=== PATIENT | male | born 1965 | race Caucasian/White ===

== ENCOUNTER → 2017-04-17 | Outpatient (CLI) | payer OTHER ==
[~2017-04-17] MED LIST: ALBUTEROL SULF 2.5 MG/0.5ML(0.5%) NEB SOLN ONE; ALPR1TAB2; BENA40TA PO; HALO10TA18; LAMO100T4 PO; LANS30CA63 PO; OLAN5TAB26; SIMV-13; TRAZADONE; [UNRECOGNIZED DRUG - OTHER]
== END | disposition home or self-care (01) ==
LOC: RT 08:26
PROVIDERS: ATTEND Internal Medicine Pulmonary Disease
DX: J44.9 Chronic obstructive pulmonary disease, unspecified (principal)
CPT/HCPCS: 94060

== ENCOUNTER 2020-12-05 11:02 | Inpatient (IN) | payer MEDICARE, MEDICAID ==
[~2020-12-05] VITALS: Ht 188 cm; Wt 86.9 kg
[~2020-12-05 11:02] MED LIST changes: -ALBUTEROL SULF 2.5 MG/0.5ML(0.5%) NEB SOLN ONE; +LANS30CA57 PO; -LANS30CA63 PO; +OLAN5TAB2; -OLAN5TAB26
[2020-12-05 12:24] LABS: Basophils # (auto) 0 10 ^3/uL (0-0.2); Basophils % (auto) 0.1 % (0.0-2.0); Eosinophils # (auto) 0 10 ^3/uL (0-0.8); Eosinophils % (auto) 0.3 % (0.0-7.0); Hematocrit 38.7 % (41.0-53.0); Hemoglobin 13.6 g/dL (13.5-17.5); Lymphocytes # (auto) 0.9 10 ^3/uL (0.4-5.4); Lymphocytes % (auto) 5.8 % (10.0-50.0); Mean Corpuscular Volume 91.2 fL (80.0-100.0); Monocytes % (auto) 6.6 % (0.0-12.0); Neutrophils # (auto) 13.2 10 ^3/uL (1.6-8.6); Neutrophils % (auto) 87.2 % (37.0-80.0); Nucleated Red Blood Cells % 0.1 %; Red Blood Cells 4.24 10^6/uL (4.5-5.90); White Blood Cell 15.1 10^3/uL (4.4-10.8)
[2020-12-05 12:41] LABS: Albumin 3.1 g/dL (3.4-5.0); Anion Gap 11 (5-15); Blood Urea Nitrogen 9 mg/dL (7-18); Carbon Dioxide 22 mmol/L (21-32); Chloride 86 mmol/L (98-107); Glucose 126 mg/dL (74-106); Magnesium 1.5 mg/dL (1.6-2.6); Potassium 3.9 mmol/L (3.5-5.1)
[2020-12-05 12:46] LABS: Alanine Aminotransferase 50 U/L (16-61); Alkaline Phosphatase 162 U/L (45-117); Aspartate Aminotransferase 81 U/L (15-37); BUN/Creatinine Ratio 11.4; Bilirubin, Total 0.7 mg/dL (0.2-1.0); GFR African American 132 mL/min; GFR Non-African American 109 mL/min; Total Protein 6.7 g/dL (6.4-8.2)
[2020-12-05 12:50] LABS: Sodium 119 mmol/L (136-145)
[2020-12-05] MEDS ORDERED: SODIUM CHLORIDE 0.9% 1,000 ML IV ONE ×2 (13:00→14:45)
[2020-12-05] MEDS ORDERED: cefTRIAXone 1GM/50ML D5W 50 ML IV ONE (13:00)
[2020-12-05] MEDS ORDERED: ACETAMINOPHEN 500 MG TAB PO PRN (14:45)
[2020-12-05] MEDS ORDERED: NITROGLYCERIN 0.4 MG SL TAB SL PRN (14:45)
[2020-12-05] MEDS ORDERED: MORPHINE SULFATE INJECTION 2 MG/ML SYRG IV PRN ×2 (14:45)
[2020-12-05] MEDS ORDERED: MAGNESIUM SULFATE 1GM/100ML 100 ML IV ONE (14:45)
[2020-12-05] MEDS ORDERED: methylPREDNISolone SOD SUCC 125 MG/2 ML VL IV ONE (14:45)
[2020-12-05] MEDS ORDERED: IPRATROPIUM BROM 0.5 MG/2.5ML INH SOL NEB ONE (14:45)
[2020-12-05] MEDS ORDERED: ONDANSETRON HCL 4 MG/2 ML VIAL IV PRN (14:45)
[2020-12-05] MEDS ORDERED: ALBUTEROL SULF 2.5 MG/0.5ML(0.5%) NEB SOLN NEB ONE (14:45)
[2020-12-05 15:21] LABS: Urine Bacteria NONE SEEN /hpf (None Seen); Urine Blood Negative /uL (Negative); Urine Specific Gravity 1.007 (1.001-1.035); Urine WBC 1 /hpf (0 - 3)
[2020-12-05] MEDS: AZITHROMYCIN 500MG/ 250ML 250 ML IV SCH (15:28)
[2020-12-05 15:58] VITALS: BP 124/72
[2020-12-05 17:00] VITALS: BP 113/75
[2020-12-05 18:39] VITALS: BP 113/75
[2020-12-05] MEDS: IPRATROPIUM BROM 0.5 MG/2.5ML INH SOL NEB SCH (20:01)
[2020-12-05] MEDS: BUDESONIDE (INHALATION) 0.5 MG/2 ML NEB NEB SCH (20:01)
[2020-12-05] MEDS: ALBUTEROL SULF 2.5 MG/0.5ML(0.5%) NEB SOLN NEB SCH (20:01)
[2020-12-05 22:00] VITALS: BP 129/76
[2020-12-06 05:00] VITALS: BP 147/94
[2020-12-06 05:57] LABS: Basophils # (auto) 0 10 ^3/uL (0-0.2); Basophils % (auto) 0.1 % (0.0-2.0); Eosinophils # (auto) 0 10 ^3/uL (0-0.8); Hematocrit 41.7 % (41.0-53.0); Hemoglobin 14.3 g/dL (13.5-17.5); Lymphocytes # (auto) 0.5 10 ^3/uL (0.4-5.4); Lymphocytes % (auto) 3.2 % (10.0-50.0); Mean Corpuscular Hemoglobin 31.8 pg (28.0-32.0); Mean Corpuscular Hgb Conc. 34.3 g/dL (32.0-36.0); Mean Corpuscular Volume 92.8 fL (80.0-100.0); Monocytes # (auto) 0.7 10 ^3/uL (0-1.3); Neutrophils # (auto) 13.1 10 ^3/uL (1.6-8.6); Neutrophils % (auto) 91.7 % (37.0-80.0); Red Blood Cells 4.49 10^6/uL (4.5-5.90); White Blood Cell 14.3 10^3/uL (4.4-10.8)
[2020-12-06 06:19] LABS: Calcium 8.3 mg/dL (8.5-10.1); Potassium 3.7 mmol/L (3.5-5.1)
[2020-12-06] MEDS: IPRATROPIUM BROM 0.5 MG/2.5ML INH SOL NEB SCH ×3 (06:28→20:26)
[2020-12-06] MEDS: BUDESONIDE (INHALATION) 0.5 MG/2 ML NEB NEB SCH ×2 (06:28→20:27)
[2020-12-06] MEDS: ALBUTEROL SULF 2.5 MG/0.5ML(0.5%) NEB SOLN NEB SCH ×4 (06:28→20:28)
[2020-12-06] MEDS: HYDROcodone-ACET 5/325MG TAB PO PRN ×3 (06:59→23:52)
[2020-12-06 09:00] VITALS: BP 155/94
[2020-12-06] MEDS: cefTRIAXone 1GM/50ML D5W 50 ML IV SCH (09:10)
[2020-12-06] MEDS ORDERED: FUROSEMIDE 20 MG/2 ML VIAL IV ONE (09:15)
[2020-12-06] MEDS: AZITHROMYCIN 500MG/ 250ML 250 ML IV SCH (10:27)
[2020-12-06] MEDS ORDERED: ALPR1TAB2 PO (10:41)
[2020-12-06] MEDS ORDERED: OLAN20TA PO (10:41)
[2020-12-06] MEDS ORDERED: FLUO60TA7 PO (10:47)
[2020-12-06 13:00] VITALS: BP 139/95
[2020-12-06] MEDS ORDERED: lamoTRIgine 100 MG TAB PO ONE (13:00)
[2020-12-06] MEDS ORDERED: PANTOPRAZOLE 40 MG TAB PO ONE (13:00)
[2020-12-06] MEDS ORDERED: BENAZEPRIL HCL 10 MG TAB PO ONE (13:00)
[2020-12-06] MEDS ORDERED: FLUoxetine HCL 20 MG CAP PO ONE (13:00)
[2020-12-06] MEDS: methylPREDNISolone SOD SUCC 40 MG/ML VL IV SCH ×2 (13:30→21:08)
[2020-12-06] MEDS ORDERED: ALPRAZolam 0.5 MG TAB PO SCH (14:00)
[2020-12-06] MEDS: ALPRAZolam 0.5 MG TAB PO PRN (15:57)
[2020-12-06 17:00] VITALS: BP 145/96
[2020-12-07] MEDS: ALPRAZolam 0.5 MG TAB PO PRN ×3 (03:20→20:38)
[2020-12-07 05:00] VITALS: BP_SYST 101; BP_SYST 152; BP_DIAS 71; BP_DIAS 92
[2020-12-07] MEDS: HYDROcodone-ACET 5/325MG TAB PO PRN ×2 (06:18→18:05)
[2020-12-07] MEDS: IPRATROPIUM BROM 0.5 MG/2.5ML INH SOL NEB SCH ×3 (06:28→18:00)
[2020-12-07] MEDS: ALBUTEROL SULF 2.5 MG/0.5ML(0.5%) NEB SOLN NEB SCH ×3 (06:28→18:00)
[2020-12-07] MEDS: BUDESONIDE (INHALATION) 0.5 MG/2 ML NEB NEB SCH ×2 (06:28→19:27)
[2020-12-07 09:00] VITALS: BP 158/81
[2020-12-07] MEDS: cefTRIAXone 1GM/50ML D5W 50 ML IV SCH (09:04)
[2020-12-07] MEDS: methylPREDNISolone SOD SUCC 40 MG/ML VL IV SCH ×2 (09:53→20:38)
[2020-12-07] MEDS: FLUoxetine HCL 20 MG CAP PO SCH (09:54)
[2020-12-07] MEDS: AZITHROMYCIN 500MG/ 250ML 250 ML IV SCH (09:54)
[2020-12-07] MEDS: BENAZEPRIL HCL 10 MG TAB PO SCH (09:55)
[2020-12-07] MEDS: PANTOPRAZOLE 40 MG TAB PO SCH (09:56)
[2020-12-07] MEDS: lamoTRIgine 100 MG TAB PO SCH (09:56)
[2020-12-07] MEDS ORDERED: OLANZAPINE 30 MG PO SCH (10:00)
[2020-12-07] MEDS: OLANZapine 5 MG TAB PO SCH (11:21)
[2020-12-07 13:00] VITALS: BP 128/80
[2020-12-07 18:00] VITALS: BP 137/96
[2020-12-07 22:00] VITALS: BP 144/93
[2020-12-08] MEDS: HYDROcodone-ACET 5/325MG TAB PO PRN ×3 (00:44→13:08)
[2020-12-08] MEDS: ALPRAZolam 0.5 MG TAB PO PRN ×2 (04:47→13:13)
[2020-12-08 05:28] VITALS: BP 158/92
[2020-12-08 06:17] LABS: Basophils # (auto) 0.1 10 ^3/uL (0-0.2); Basophils % (auto) 0.5 % (0.0-2.0); Eosinophils # (auto) 0 10 ^3/uL (0-0.8); Hematocrit 41.1 % (41.0-53.0); Hemoglobin 14.1 g/dL (13.5-17.5); Lymphocytes # (auto) 0.8 10 ^3/uL (0.4-5.4); Lymphocytes % (auto) 6.7 % (10.0-50.0); Mean Corpuscular Hemoglobin 32.1 pg (28.0-32.0); Mean Corpuscular Hgb Conc. 34.2 g/dL (32.0-36.0); Mean Corpuscular Volume 93.9 fL (80.0-100.0); Monocytes # (auto) 0.5 10 ^3/uL (0-1.3); Monocytes % (auto) 4.4 % (0.0-12.0); Neutrophils # (auto) 10.1 10 ^3/uL (1.6-8.6); Neutrophils % (auto) 88.4 % (37.0-80.0); Nucleated Red Blood Cells % 0.1 %; Red Blood Cells 4.38 10^6/uL (4.5-5.90); Red Cell Distribution Width 14.2 % (11.8-14.3); White Blood Cell 11.5 10^3/uL (4.4-10.8)
[2020-12-08 06:47] LABS: BUN/Creatinine Ratio 16.4; Calcium 8.6 mg/dL (8.5-10.1); Potassium 3.5 mmol/L (3.5-5.1)
[2020-12-08] MEDS: IPRATROPIUM BROM 0.5 MG/2.5ML INH SOL NEB SCH ×2 (07:11→11:20)
[2020-12-08] MEDS: ALBUTEROL SULF 2.5 MG/0.5ML(0.5%) NEB SOLN NEB SCH ×2 (07:11→11:20)
[2020-12-08] MEDS: BUDESONIDE (INHALATION) 0.5 MG/2 ML NEB NEB SCH (07:11)
[2020-12-08 09:01] VITALS: BP 154/97
[2020-12-08] MEDS: OLANZapine 5 MG TAB PO SCH (09:25)
[2020-12-08] MEDS: cefTRIAXone 1GM/50ML D5W 50 ML IV SCH (09:26)
[2020-12-08] MEDS: methylPREDNISolone SOD SUCC 40 MG/ML VL IV SCH (09:27)
[2020-12-08] MEDS: PANTOPRAZOLE 40 MG TAB PO SCH (09:27)
[2020-12-08] MEDS: FLUoxetine HCL 20 MG CAP PO SCH (09:29)
[2020-12-08] MEDS: BENAZEPRIL HCL 10 MG TAB PO SCH (09:29)
[2020-12-08] MEDS: lamoTRIgine 100 MG TAB PO SCH (10:00)
[2020-12-08] MEDS ORDERED: PRED20TA2 PO (10:05)
[2020-12-08] MEDS ORDERED: DOXY-286 PO (10:05)
[2020-12-08 13:00] VITALS: BP 139/98
[2020-12-08] MEDS: AZITHROMYCIN 500MG/ 250ML 250 ML IV SCH (13:07)
[2020-12-08 13:30] VITALS: BP 154/97
[2020-12-08 14:40] VITALS: BP 139/98
[2020-12-08] MEDS ORDERED: DOXY-332 PO (15:34)
== END 2020-12-08 15:35 | disposition home or self-care (01) | DRG 871 ==
LOC: ER 11:02 → TELE 14:33 → TELE-WESTW 17:05
PROVIDERS: ADMIT Nurse Practitioner Acute Care; ATTEND Internal Medicine Pulmonary Disease
DX: A41.02 Sepsis due to Methicillin resistant Staphylococcus aureus (principal); J96.21 Acute and chronic respiratory failure with hypoxia; G93.41 Metabolic encephalopathy; J15.211 Pneumonia due to Methicillin susceptible Staphylococcus aureus; E44.0 Moderate protein-calorie malnutrition; E87.1 Hypo-osmolality and hyponatremia; D72.829 Elevated white blood cell count, unspecified; F17.210 Nicotine dependence, cigarettes, uncomplicated; F20.9 Schizophrenia, unspecified; I11.0 Hypertensive heart disease with heart failure; J43.9 Emphysema, unspecified; F41.9 Anxiety disorder, unspecified; F32.A Depression, unspecified; I50.9 Heart failure, unspecified; Z20.822 Contact with and (suspected) exposure to COVID-19; E87.70 Fluid overload, unspecified; Z68.25 Body mass index [BMI] 25.0-25.9, adult
CPT/HCPCS: 36415; 70450; 71045; 80048; 80053; 81001; 83605; 83735; 83880; 83930; 84300; 84484; 85025; 87040; 87070; 87077; 87186; 87205; 87426; 87804; 93005; 93306; 94640; 96361; 96365; 96368; 96375; G0378; J0696

== ENCOUNTER → 2020-12-17 | Outpatient (CLI) | payer MEDICARE, MEDICAID ==
[~2020-12-17] MED LIST changes: +ALBU108A5 PO; +ALPR1TAB2 PO; +BENA10TA15 PO; +CHOL20007 PO; +DEXL60CA4 PO; +DIPH2.5T16 PO; +DISU1TAB PO; +DOXY-286 PO; +DOXY-332 PO; +FLUO40CA PO; +FLUO60TA7 PO; +FLUT1AER3 PO; -HALO10TA18; +MULT-733 PO; +NALO4SPR2 NAS; +OLAN20TA PO; +PERCOT PO; +PRED20TA2 PO; -SIMV-13; -TRAZADONE
== END | disposition home or self-care (01) ==
LOC: Rad HDHVI 07:54
PROVIDERS: ATTEND Internal Medicine Cardiovascular Disease
DX: I70.203 Unspecified atherosclerosis of native arteries of extremities, bilateral legs (principal)
CPT/HCPCS: 93925

== ENCOUNTER 2020-12-28 07:20 | Inpatient (IN) | payer MEDICARE, MEDICAID ==
[~2020-12-28] VITALS: Ht 188 cm; Wt 91.2 kg
[~2020-12-28 07:20] MED LIST changes: -ALBU108A5 PO; -BENA10TA15 PO; -CHOL20007 PO; -DEXL60CA4 PO; -DIPH2.5T16 PO; -DISU1TAB PO; -FLUO40CA PO; -FLUT1AER3 PO; -MULT-733 PO; -NALO4SPR2 NAS; -PERCOT PO
[2020-12-28] MEDS ORDERED: MORPHINE SULFATE 4 MG/ML SYR/VIAL IV ONE (07:45)
[2020-12-28] MEDS ORDERED: ONDANSETRON HCL 4 MG/2 ML VIAL IV ONE (07:45)
[2020-12-28 08:26] LABS: Basophils # (auto) 0.1 10 ^3/uL (0-0.2); Basophils % (auto) 0.9 % (0.0-2.0); Eosinophils # (auto) 0.1 10 ^3/uL (0-0.8); Eosinophils % (auto) 0.5 % (0.0-7.0); Hematocrit 44.4 % (41.0-53.0); Hemoglobin 15.3 g/dL (13.5-17.5); Lymphocytes # (auto) 0.8 10 ^3/uL (0.4-5.4); Lymphocytes % (auto) 8.6 % (10.0-50.0); Mean Corpuscular Hemoglobin 31.9 pg (28.0-32.0); Mean Corpuscular Hgb Conc. 34.4 g/dL (32.0-36.0); Mean Corpuscular Volume 92.8 fL (80.0-100.0); Monocytes # (auto) 0.7 10 ^3/uL (0-1.3); Monocytes % (auto) 7.2 % (0.0-12.0); Neutrophils # (auto) 7.7 10 ^3/uL (1.6-8.6); Neutrophils % (auto) 82.8 % (37.0-80.0); Nucleated Red Blood Cells % 0.1 %; Red Blood Cells 4.78 10^6/uL (4.5-5.90); White Blood Cell 9.3 10^3/uL (4.4-10.8)
[2020-12-28 08:42] LABS: Albumin 3.3 g/dL (3.4-5.0); Calcium 8.9 mg/dL (8.5-10.1); Potassium 4.1 mmol/L (3.5-5.1)
[2020-12-28 08:46] LABS: BUN/Creatinine Ratio 7.4; Bilirubin, Total 0.3 mg/dL (0.2-1.0); Total Protein 7.4 g/dL (6.4-8.2)
[2020-12-28 10:27] LABS: Urine Bacteria NONE SEEN /hpf (None Seen); Urine Blood Negative /uL (Negative); Urine Specific Gravity 1.003 (1.001-1.035); Urine WBC <1 /hpf (0 - 3)
[2020-12-28 11:41] LABS: INR 0.99 (0.9-1.15); Partial Thromboplastin Time 30.4 sec (23.6-33.0)
[2020-12-28] MEDS ORDERED: NITROGLYCERIN 0.4 MG SL TAB SL PRN ×2 (13:15→16:00)
[2020-12-28] MEDS ORDERED: MORPHINE SULFATE INJECTION 2 MG/ML SYRG IV PRN ×2 (13:15→16:00)
[2020-12-28] MEDS ORDERED: FLUT1AER3 PO (15:16)
[2020-12-28] MEDS ORDERED: DIPH2.5T16 PO (15:16)
[2020-12-28] MEDS ORDERED: DEXL60CA4 PO (15:16)
[2020-12-28] MEDS ORDERED: PERCOT PO (15:16)
[2020-12-28] MEDS ORDERED: ALBU108A5 PO (15:16)
[2020-12-28] MEDS ORDERED: DISU1TAB PO (15:16)
[2020-12-28] MEDS ORDERED: FLUO40CA PO (15:16)
[2020-12-28] MEDS ORDERED: BENA10TA15 PO (15:16)
[2020-12-28] MEDS ORDERED: NALO4SPR2 NAS (15:16)
[2020-12-28] MEDS ORDERED: CHOL20007 PO (15:44)
[2020-12-28] MEDS ORDERED: MULT-733 PO (15:44)
[2020-12-28] MEDS ORDERED: PROMETHAZINE-DM 5 ML ORAL SYRUP PO PRN (16:00)
[2020-12-28] MEDS ORDERED: ALUM & MAG HYDROX-SIMETH LIQ(MAALOX) 30 ML PO PRN (16:00)
[2020-12-28] MEDS ORDERED: BUDESONIDE (INHALATION) 0.5 MG/2 ML NEB NEB ONE (16:00)
[2020-12-28] MEDS ORDERED: BENAZEPRIL HCL 10 MG TAB PO ONE (16:00)
[2020-12-28] MEDS ORDERED: DOCUSATE SOD 100 MG CAP PO PRN (16:00)
[2020-12-28] MEDS ORDERED: B-COMPLEX W/ C & FOLIC ACID(NEPHROVITE TAB) PO ONE (16:00)
[2020-12-28] MEDS ORDERED: ONDANSETRON HCL 4 MG/2 ML VIAL IV PRN (16:00)
[2020-12-28] MEDS ORDERED: ACETAMINOPHEN 325 MG TAB PO PRN (16:00)
[2020-12-28] MEDS ORDERED: PANTOPRAZOLE 40 MG/10 ML VIAL INJ IV ONE (16:00)
[2020-12-28] MEDS ORDERED: SUCRALFATE 1 GM/10 ML ORAL SUSP PO ONE (16:00)
[2020-12-28] MEDS ORDERED: ceFAZolin 1GM/50ML 50 ML IV ONE (16:00)
[2020-12-28] MEDS ORDERED: PROMETHAZINE-DM 5 ML ORAL SYRUP PO ONE (16:00)
[2020-12-28 16:35] LABS: Cholesterol 162 mg/dL (< 200)
[2020-12-28 16:38] LABS: HDL Cholesterol 48 mg/dL (40-59); LDL Cholesterol 97 mg/dL (< 100); Triglycerides 109 mg/dL (< 150)
[2020-12-28] MEDS: SODIUM CHLORIDE 0.9% 1,000 ML IV SCH (16:47)
[2020-12-28] MEDS: IPRATROPIUM BROM 0.5 MG/2.5ML INH SOL NEB SCH ×2 (19:28→22:28)
[2020-12-28] MEDS: ALBUTEROL SULF 2.5 MG/0.5ML(0.5%) NEB SOLN NEB PRN (19:28)
[2020-12-28] MEDS: BUDESONIDE (INHALATION) 0.5 MG/2 ML NEB NEB SCH (19:28)
[2020-12-28] MEDS: HYDROcodone-ACET 5/325MG TAB PO PRN (21:11)
[2020-12-28] MEDS: ceFAZolin 1GM/50ML 50 ML IV SCH (21:38)
[2020-12-28] MEDS: SUCRALFATE 1 GM/10 ML ORAL SUSP PO SCH (21:38)
[2020-12-28 22:38] LABS: Alcohol, Urine < 3.0 mg/dL (0-10); Amphetamine Screen, Urine NEGATIVE (NEGATIVE); Barbiturate Scree,Urine NEGATIVE (NEGATIVE); Benzodiazephine Screen, Urine NEGATIVE (NEGATIVE); Cannabinoid Screen, Urine POSITIVE (NEGATIVE); Cocaine Screen, Urine NEGATIVE (NEGATIVE); Opiate Scree,Urine NEGATIVE (NEGATIVE); Phencyclidine Screen, Urine NEGATIVE (NEGATIVE)
[2020-12-29] VITALS (7 sets, daily range): BP systolic 118–159; BP diastolic 69–98
[2020-12-29] MEDS: LORazepam 0.5 MG TAB PO PRN ×4 (02:02→22:20)
[2020-12-29] MEDS: HYDROcodone-ACET 5/325MG TAB PO PRN ×4 (02:02→20:17)
[2020-12-29] MEDS: IPRATROPIUM BROM 0.5 MG/2.5ML INH SOL NEB SCH ×6 (02:14→22:38)
[2020-12-29] MEDS: ceFAZolin 1GM/50ML 50 ML IV SCH ×3 (05:30→22:20)
[2020-12-29] MEDS: hydrALAZINE HCL 20 MG/ML VL IV PRN ×2 (05:33→09:34)
[2020-12-29 05:42] LABS: Basophils # (auto) 0.1 10 ^3/uL (0-0.2); Basophils % (auto) 0.7 % (0.0-2.0); Eosinophils # (auto) 0.1 10 ^3/uL (0-0.8); Eosinophils % (auto) 1.2 % (0.0-7.0); Hematocrit 42.4 % (41.0-53.0); Lymphocytes # (auto) 1.1 10 ^3/uL (0.4-5.4); Lymphocytes % (auto) 14.5 % (10.0-50.0); Mean Corpuscular Hemoglobin 33.1 pg (28.0-32.0); Mean Corpuscular Hgb Conc. 35.3 g/dL (32.0-36.0); Mean Corpuscular Volume 93.6 fL (80.0-100.0); Monocytes # (auto) 0.8 10 ^3/uL (0-1.3); Monocytes % (auto) 10.9 % (0.0-12.0); Neutrophils # (auto) 5.5 10 ^3/uL (1.6-8.6); Neutrophils % (auto) 72.7 % (37.0-80.0); Nucleated Red Blood Cells % 0.1 %; Red Blood Cells 4.53 10^6/uL (4.5-5.90); Red Cell Distribution Width 14.5 % (11.8-14.3); White Blood Cell 7.6 10^3/uL (4.4-10.8)
[2020-12-29 05:45] LABS: Calcium 8.6 mg/dL (8.5-10.1); Magnesium 1.9 mg/dL (1.6-2.6); Potassium 4.8 mmol/L (3.5-5.1)
[2020-12-29 05:49] LABS: BUN/Creatinine Ratio 7.4; Bilirubin, Total 0.3 mg/dL (0.2-1.0); Phosphorus 3.1 mg/dL (2.5-4.90); Total Protein 6.9 g/dL (6.4-8.2); Uric Acid 4.4 mg/dL (3.5-7.2)
[2020-12-29 05:50] LABS: INR 1.02 (0.9-1.15); Partial Thromboplastin Time 30.2 sec (23.6-33.0)
[2020-12-29] MEDS: ALBUTEROL SULF 2.5 MG/0.5ML(0.5%) NEB SOLN NEB PRN ×4 (06:22→22:38)
[2020-12-29] MEDS: SUCRALFATE 1 GM/10 ML ORAL SUSP PO SCH ×4 (06:28→22:20)
[2020-12-29] MEDS: SODIUM CHLORIDE 0.9% 1,000 ML IV SCH (08:40)
[2020-12-29] MEDS: PANTOPRAZOLE 40 MG/10 ML VIAL INJ IV SCH (09:32)
[2020-12-29] MEDS: FLUoxetine HCL 20 MG CAP PO SCH (09:33)
[2020-12-29] MEDS: BENAZEPRIL HCL 10 MG TAB PO SCH (09:33)
[2020-12-29] MEDS: B-COMPLEX W/ C & FOLIC ACID(NEPHROVITE TAB) PO SCH (09:33)
[2020-12-29] MEDS: BUDESONIDE (INHALATION) 0.5 MG/2 ML NEB NEB SCH ×2 (10:00→18:40)
[2020-12-29] MEDS: OLANZapine 5 MG TAB PO SCH (10:02)
[2020-12-29] MEDS: MORPHINE SULFATE INJECTION 2 MG/ML SYRG IV PRN ×2 (13:00→18:33)
[2020-12-29] MEDS ORDERED: NICOTINE 21MG/24 HR TOPICAL PATCH TD ONE (18:15)
[2020-12-30 00:10] LABS: Amphetamine Screen, Urine NEGATIVE (NEGATIVE); Barbiturate Scree,Urine NEGATIVE (NEGATIVE); Benzodiazephine Screen, Urine NEGATIVE (NEGATIVE); Cannabinoid Screen, Urine NEGATIVE (NEGATIVE); Cocaine Screen, Urine NEGATIVE (NEGATIVE); Opiate Scree,Urine NEGATIVE (NEGATIVE); Phencyclidine Screen, Urine NEGATIVE (NEGATIVE)
[2020-12-30] MEDS: HYDROcodone-ACET 5/325MG TAB PO PRN ×3 (00:47→12:53)
[2020-12-30] MEDS: IPRATROPIUM BROM 0.5 MG/2.5ML INH SOL NEB SCH (02:00)
[2020-12-30] MEDS: LORazepam 0.5 MG TAB PO PRN ×2 (04:09→11:06)
[2020-12-30] MEDS: MORPHINE SULFATE INJECTION 2 MG/ML SYRG IV PRN ×2 (04:09→11:07)
[2020-12-30 05:00] VITALS: BP 118/91
[2020-12-30] MEDS: ceFAZolin 1GM/50ML 50 ML IV SCH (06:16)
[2020-12-30] MEDS: SUCRALFATE 1 GM/10 ML ORAL SUSP PO SCH ×2 (06:16→11:06)
[2020-12-30 08:30] VITALS: BP 115/87
[2020-12-30] MEDS: PANTOPRAZOLE 40 MG/10 ML VIAL INJ IV SCH (08:48)
[2020-12-30] MEDS: BENAZEPRIL HCL 10 MG TAB PO SCH (08:49)
[2020-12-30] MEDS: OLANZapine 5 MG TAB PO SCH (08:49)
[2020-12-30] MEDS: FLUoxetine HCL 20 MG CAP PO SCH (08:49)
[2020-12-30] MEDS: B-COMPLEX W/ C & FOLIC ACID(NEPHROVITE TAB) PO SCH (08:49)
[2020-12-30] MEDS ORDERED: NICOTINE 21MG/24 HR TOPICAL PATCH TD SCH (10:00)
[2020-12-30 12:36] VITALS: BP 122/87
== END 2020-12-30 13:30 | disposition home or self-care (01) | DRG 605 ==
LOC: ER 07:20 → TELE 13:12 → TELE-CENTR 12-29 01:55 → CENTRAL 12-29 10:22
PROVIDERS: ADMIT Hospitalist; ATTEND Internal Medicine
DX: S30.1XXA Contusion of abdominal wall, initial encounter (principal); J44.1 Chronic obstructive pulmonary disease with (acute) exacerbation; F11.20 Opioid dependence, uncomplicated; K80.20 Calculus of gallbladder without cholecystitis without obstruction; K29.20 Alcoholic gastritis without bleeding; K29.00 Acute gastritis without bleeding; I11.0 Hypertensive heart disease with heart failure; F32.9 Major depressive disorder, single episode, unspecified; F41.9 Anxiety disorder, unspecified; F12.90 Cannabis use, unspecified, uncomplicated; F17.210 Nicotine dependence, cigarettes, uncomplicated; F32.A Depression, unspecified; Z20.822 Contact with and (suspected) exposure to COVID-19; F20.9 Schizophrenia, unspecified; I50.9 Heart failure, unspecified; K21.9 Gastro-esophageal reflux disease without esophagitis; Z82.49 Family history of ischemic heart disease and other diseases of the circulatory system; Z82.5 Family history of asthma and other chronic lower respiratory diseases; Z71.6 Tobacco abuse counseling; W19.XXXA Unspecified fall, initial encounter; Y93.89 Activity, other specified; Y92.89 Other specified places as the place of occurrence of the external cause; Y99.8 Other external cause status
CPT/HCPCS: 36415; 74177; 76705; 80053; 80061; 80307; 81001; 83036; 83690; 83735; 83880; 84100; 84443; 84484; 84550; 85025; 85610; 85730; 87040; 87086; 87426; 93005; 94640; 96365; 96375; C9113; G0378; J0690; J2405

== ENCOUNTER → 2022-01-02 | Outpatient (CLI) | payer MEDICARE, MEDICAID ==
[~2022-01-02] MED LIST changes: +ALBU108A5 PO; -ALPR1TAB2; -ALPR1TAB2 PO; +BENA10TA15 PO; -BENA40TA PO; +CHOL20007 PO; +DEXL60CA4 PO; +DIPH2.5T16 PO; +DISU1TAB PO; -DOXY-286 PO; -DOXY-332 PO; +FLUO40CA PO; -FLUO60TA7 PO; +FLUT1AER3 PO; -LAMO100T4 PO; -LANS30CA57 PO; +MULT-733 PO; -OLAN5TAB2; +PERCOT PO; -PRED20TA2 PO; -[UNRECOGNIZED DRUG - OTHER]
== END | disposition home or self-care (01) ==
LOC: Rad HDHVI 10:21
PROVIDERS: ATTEND Internal Medicine Cardiovascular Disease
DX: M43.9 Deforming dorsopathy, unspecified (principal); M40.294 Other kyphosis, thoracic region; R05.9 Cough, unspecified; R06.02 Shortness of breath; J98.11 Atelectasis
CPT/HCPCS: 71046

== ENCOUNTER → 2022-01-05 | Outpatient (CLI) | payer MEDICARE, MEDICAID ==
[2022-01-05 11:09] LABS: Basophils # (auto) 0.1 10 ^3/uL (0-0.2); Basophils % (auto) 0.6 % (0.0-2.0); Eosinophils # (auto) 0.1 10 ^3/uL (0-0.8); Eosinophils % (auto) 1.2 % (0.0-7.0); Hematocrit 50.5 % (41.0-53.0); Hemoglobin 17.3 g/dL (13.5-17.5); Lymphocytes # (auto) 1.4 10 ^3/uL (0.4-5.4); Lymphocytes % (auto) 16.4 % (10.0-50.0); Mean Corpuscular Hemoglobin 30.3 pg (28.0-32.0); Mean Corpuscular Hgb Conc. 34.2 g/dL (32.0-36.0); Mean Corpuscular Volume 88.6 fL (80.0-100.0); Monocytes # (auto) 0.8 10 ^3/uL (0-1.3); Neutrophils # (auto) 6.3 10 ^3/uL (1.6-8.6); Neutrophils % (auto) 72.8 % (37.0-80.0); Red Cell Distribution Width 14.1 % (11.8-14.3); White Blood Cell 8.6 10^3/uL (4.4-10.8)
[2022-01-05 11:13] LABS: Urine Blood Negative /uL (Negative); Urine Specific Gravity 1.007 (1.001-1.035)
[2022-01-05 11:30] LABS: Free T4 (Free Thyroxine) 1.14 ng/dL (0.89-1.76); Prostate Specific Antigen 0.9 ng/mL (0.0-4.0)
[2022-01-05 11:31] LABS: Potassium 4.5 mmol/L (3.5-5.1)
[2022-01-05 11:39] LABS: Albumin 3.7 g/dL (3.4-5.0); BUN/Creatinine Ratio 17.1; Calcium 9.1 mg/dL (8.5-10.1)
[2022-01-05 11:47] LABS: Bilirubin, Total 0.4 mg/dL (0.2-1.0); Total Protein 7.2 g/dL (6.4-8.2)
== END | disposition home or self-care (01) ==
LOC: LAB 08:05
PROVIDERS: ATTEND Internal Medicine Cardiovascular Disease
DX: E78.00 Pure hypercholesterolemia, unspecified (principal); E55.9 Vitamin D deficiency, unspecified
CPT/HCPCS: 36415; 80053; 80061; 81003; 82306; 82607; 83036; 84153; 84403; 84439; 84443; 85025

== ENCOUNTER → 2022-01-10 | Outpatient (CLI) | payer MEDICARE, MEDICAID ==
[~2022-01-10] MED LIST changes: +ALB5IS NEB; +AZIT250T8 PO; +DEXA6TAB6 PO; +DOX100T PO; +IPR002IS NEB
== END | disposition home or self-care (01) ==
LOC: Rad HDHVI 15:47
PROVIDERS: ATTEND Internal Medicine Cardiovascular Disease
DX: I10 Essential (primary) hypertension (principal); E78.5 Hyperlipidemia, unspecified
CPT/HCPCS: 93306

== ENCOUNTER → 2022-01-18 | Outpatient (CLI) | payer MEDICARE, MEDICAID ==
[~2022-01-18] VITALS: Ht 188 cm; Wt 93.0 kg
[~2022-01-18] MED LIST changes: +ADENOSINE 78 MG in GIVE UN-DILUTED 0 ML IV ONE; +ADENOSINE 90 MG/30 ML INJ IV ONE; -ALB5IS NEB; +ALBUTEROL SULF 2.5 MG/0.5ML(0.5%) NEB SOLN NEB ONE; +ALBUTEROL SULF 2.5 MG/0.5ML(0.5%) NEB SOLN ONE; -AZIT250T8 PO; -DEXA6TAB6 PO; -DOX100T PO; -IPR002IS NEB
== END | disposition home or self-care (01) ==
LOC: Rad HDHVI 08:22
PROVIDERS: ATTEND Internal Medicine Cardiovascular Disease
DX: R06.02 Shortness of breath (principal); I10 Essential (primary) hypertension; E78.00 Pure hypercholesterolemia, unspecified; D64.9 Anemia, unspecified; J44.9 Chronic obstructive pulmonary disease, unspecified; F17.210 Nicotine dependence, cigarettes, uncomplicated; Z82.49 Family history of ischemic heart disease and other diseases of the circulatory system; Z79.899 Other long term (current) drug therapy
CPT/HCPCS: 78452; 93005; 94640; 96374; 96375; A9500; J0153

== ENCOUNTER → 2022-01-23 | Outpatient (CLI) | payer MEDICARE, MEDICAID ==
[~2022-01-23] MED LIST changes: -ADENOSINE 78 MG in GIVE UN-DILUTED 0 ML IV ONE; -ADENOSINE 90 MG/30 ML INJ IV ONE; +ALB5IS NEB; -ALBUTEROL SULF 2.5 MG/0.5ML(0.5%) NEB SOLN NEB ONE; -ALBUTEROL SULF 2.5 MG/0.5ML(0.5%) NEB SOLN ONE; +AZIT250T8 PO; +DEXA6TAB6 PO; +DOX100T PO; +IPR002IS NEB
== END | disposition home or self-care (01) ==
LOC: Rad HDHVI 08:07
PROVIDERS: ATTEND Internal Medicine Cardiovascular Disease
DX: I65.23 Occlusion and stenosis of bilateral carotid arteries (principal); I10 Essential (primary) hypertension; E78.5 Hyperlipidemia, unspecified
CPT/HCPCS: 93880

== ENCOUNTER 2022-01-28 18:57 | Emergency (ER) | payer MEDICARE, MEDICAID ==
[~2022-01-28] VITALS: Ht 188 cm; Wt 100.0 kg
[~2022-01-28 18:57] MED LIST changes: -ALB5IS NEB; -AZIT250T8 PO; -DEXA6TAB6 PO; -DOX100T PO; -IPR002IS NEB
[2022-01-28] MEDS ORDERED: IPRATROPIUM BROM 0.5 MG/2.5ML INH SOL NEB ONE (19:30)
[2022-01-28] MEDS ORDERED: ALBUTEROL SULF 2.5 MG/0.5ML(0.5%) NEB SOLN NEB ONE ×2 (19:30→22:45)
[2022-01-28 20:40] LABS: Basophils # (auto) 0.1 10 ^3/uL (0-0.2); Basophils % (auto) 0.5 % (0.0-2.0); Eosinophils # (auto) 0 10 ^3/uL (0-0.8); Eosinophils % (auto) 0.4 % (0.0-7.0); Hematocrit 49.6 % (41.0-53.0); Hemoglobin 16.7 g/dL (13.5-17.5); Lymphocytes # (auto) 0.9 10 ^3/uL (0.4-5.4); Mean Corpuscular Hemoglobin 30.3 pg (28.0-32.0); Mean Corpuscular Hgb Conc. 33.7 g/dL (32.0-36.0); Mean Corpuscular Volume 89.7 fL (80.0-100.0); Monocytes # (auto) 1.2 10 ^3/uL (0-1.3); Monocytes % (auto) 11.1 % (0.0-12.0); Neutrophils # (auto) 8.2 10 ^3/uL (1.6-8.6); Red Blood Cells 5.52 10^6/uL (4.5-5.90); Red Cell Distribution Width 13.8 % (11.8-14.3); White Blood Cell 10.4 10^3/uL (4.4-10.8)
[2022-01-28 20:56] LABS: INR 0.98 (0.9-1.15); Partial Thromboplastin Time 31.9 sec (24.6-33.4)
[2022-01-28 20:59] LABS: Albumin 3.6 g/dL (3.4-5.0); Potassium 4.4 mmol/L (3.5-5.1)
[2022-01-28 21:02] LABS: BUN/Creatinine Ratio 36.5; Bilirubin, Total 0.2 mg/dL (0.2-1.0)
[2022-01-28 21:17] VITALS: BP 146/95
[2022-01-28] MEDS ORDERED: AZIT250T8 PO (22:38)
[2022-01-28] MEDS ORDERED: DEXA6TAB6 PO (22:38)
== END 2022-01-28 23:21 | disposition home or self-care (01) ==
LOC: EDBD 18:57 → EDUNIT# 18:57 → ER 18:57
DX: J44.1 Chronic obstructive pulmonary disease with (acute) exacerbation (principal); J20.9 Acute bronchitis, unspecified; I11.0 Hypertensive heart disease with heart failure; I50.9 Heart failure, unspecified; F17.210 Nicotine dependence, cigarettes, uncomplicated; Z90.89 Acquired absence of other organs
CPT/HCPCS: 36415; 80053; 83880; 84484; 85025; 85610; 85730; 93005; 94640

== ENCOUNTER 2022-01-29 14:28 | Inpatient (IN) | payer MEDICARE, MEDICAID ==
[~2022-01-29] VITALS: Ht 188 cm; Wt 88.9 kg
[~2022-01-29 14:28] MED LIST changes: +AZIT250T8 PO; +DEXA6TAB6 PO
[2022-01-29 16:09] LABS: Hematocrit 50.7 % (41.0-53.0); Hemoglobin 17.1 g/dL (13.5-17.5); Mean Corpuscular Hemoglobin 30.3 pg (28.0-32.0); Mean Corpuscular Hgb Conc. 33.8 g/dL (32.0-36.0); Mean Corpuscular Volume 89.7 fL (80.0-100.0); Red Blood Cells 5.65 10^6/uL (4.5-5.90); White Blood Cell 11.2 10^3/uL (4.4-10.8)
[2022-01-29 16:14] LABS: Basophils % (manual) 0 (0.0-2.0); Blast Cells 0; Eosinophils % (manual) 0 (0-7); Metamyelocytes % 0; Myelocytes % 0; Promyelocytes % 0; Reactive Lymphocytes 0
[2022-01-29] MEDS ORDERED: SODIUM CHLORIDE 0.9% 1,000 ML IV ONE ×2 (16:15→19:00)
[2022-01-29] MEDS ORDERED: ALBUTEROL SULF 2.5 MG/0.5ML(0.5%) NEB SOLN NEB ONE (16:15)
[2022-01-29] MEDS ORDERED: IPRATROPIUM BROM 0.5 MG/2.5ML INH SOL NEB ONE (16:15)
[2022-01-29 16:29] LABS: Albumin 3.8 g/dL (3.4-5.0); Calcium 9.1 mg/dL (8.5-10.1); Potassium 4.5 mmol/L (3.5-5.1)
[2022-01-29 16:32] LABS: BUN/Creatinine Ratio 22.4; Band Neutrophils % (manual) 4; Bilirubin, Total 0.2 mg/dL (0.2-1.0); Lymphocytes % (manual) 6 (10.0-50.0); Monocytes % (manual) 2 (0-12); Total Protein 7.9 g/dL (6.4-8.2)
[2022-01-29] MEDS ORDERED: ACETAMINOPHEN 325 MG TAB PO PRN (18:30)
[2022-01-29] MEDS ORDERED: NITROGLYCERIN 0.4 MG SL TAB SL PRN (18:30)
[2022-01-29] MEDS ORDERED: MORPHINE SULFATE INJ 2 MG/ml SYRG IV PRN ×2 (18:30)
[2022-01-29] MEDS ORDERED: IPRATROPIUM BROM 0.5 MG/2.5ML INH SOL NEB PRN (19:00)
[2022-01-29] MEDS ORDERED: AZITHROMYCIN 500MG/ 250ML 250 ML IV ONE (19:00)
[2022-01-29] MEDS ORDERED: cefTRIAXone 1GM/50ML D5W 50 ML IV ONE (19:00)
[2022-01-29] MEDS ORDERED: ALBUTEROL SULF 2.5 MG/0.5ML(0.5%) NEB SOLN NEB PRN (19:00)
[2022-01-29 20:15] LABS: Cholesterol 151 mg/dL (< 200)
[2022-01-29 20:18] LABS: HDL Cholesterol 47 mg/dL (40-59); LDL Cholesterol 95 mg/dL (< 100); Triglycerides 48 mg/dL (< 150)
[2022-01-29 22:00] VITALS: BP 124/80
[2022-01-29] MEDS: methylPREDNISolone SOD SUCC 125 MG/2 ML VL IV SCH (22:17)
[2022-01-30] MEDS ORDERED: ALBUTEROL MEDNEB 2.5 mg/3ml NEB ONE ×2 (05:48→12:03)
[2022-01-30] MEDS: IPRATROPIUM BROM 0.5 MG/2.5ML INH SOL NEB SCH ×3 (06:32→19:26)
[2022-01-30] MEDS: ALBUTEROL SULF 2.5 MG/0.5ML(0.5%) NEB SOLN NEB SCH ×3 (06:35→19:26)
[2022-01-30 06:51] LABS: Potassium 4.9 mmol/L (3.5-5.1)
[2022-01-30 06:57] LABS: Albumin 3.7 g/dL (3.4-5.0); BUN/Creatinine Ratio 15.1; Bilirubin, Total 0.4 mg/dL (0.2-1.0); Calcium 9.3 mg/dL (8.5-10.1); Total Protein 8.2 g/dL (6.4-8.2)
[2022-01-30 07:11] LABS: Basophils # (auto) 0 10 ^3/uL (0-0.2); Basophils % (auto) 0.1 % (0.0-2.0); Eosinophils # (auto) 0 10 ^3/uL (0-0.8); Eosinophils % (auto) 0.1 % (0.0-7.0); Hematocrit 51.2 % (41.0-53.0); Hemoglobin 17.6 g/dL (13.5-17.5); Lymphocytes # (auto) 0.5 10 ^3/uL (0.4-5.4); Mean Corpuscular Hgb Conc. 34.4 g/dL (32.0-36.0); Monocytes # (auto) 0.3 10 ^3/uL (0-1.3); Monocytes % (auto) 2.8 % (0.0-12.0); Neutrophils # (auto) 8.3 10 ^3/uL (1.6-8.6); Nucleated Red Blood Cells % 0.1 %; Red Blood Cells 5.68 10^6/uL (4.5-5.90); Red Cell Distribution Width 13.9 % (11.8-14.3); White Blood Cell 9.1 10^3/uL (4.4-10.8)
[2022-01-30] MEDS ORDERED: cefTRIAXone 1GM/50ML D5W 50 ML IV SCH (09:00)
[2022-01-30] MEDS: NICOTINE 7MG/24HR TOPICAL PATCH TD SCH (10:00)
[2022-01-30] MEDS: DISULFIRAM 250 MG PO SCH (10:00)
[2022-01-30] MEDS: methylPREDNISolone SOD SUCC 125 MG/2 ML VL IV SCH (11:35)
[2022-01-30] MEDS: FLUoxetine HCL 20 MG CAP PO SCH (11:36)
[2022-01-30] MEDS: ENOXAPARIN SOD 40 MG/0.4 ML SYRINGE SC SCH (11:36)
[2022-01-30] MEDS: BENAZEPRIL HCL 10 MG TAB PO SCH (11:36)
[2022-01-30 12:15] LABS: Alcohol, Urine < 3.0 mg/dL (0-10); Amphetamine Screen, Urine NEGATIVE (NEGATIVE); Barbiturate Scree,Urine NEGATIVE (NEGATIVE); Benzodiazephine Screen, Urine NEGATIVE (NEGATIVE); Cannabinoid Screen, Urine POSITIVE (NEGATIVE); Cocaine Screen, Urine NEGATIVE (NEGATIVE); Opiate Scree,Urine NEGATIVE (NEGATIVE); Phencyclidine Screen, Urine NEGATIVE (NEGATIVE)
[2022-01-30] MEDS: OLANZapine 5 MG TAB PO SCH (12:57)
[2022-01-30 13:33] LABS: Urine Blood Negative /uL (Negative); Urine Specific Gravity 1.011 (1.001-1.035)
[2022-01-30] MEDS ORDERED: predniSONE 20 MG TAB PO ONE (16:30)
[2022-01-30] MEDS: HYDROcodone-ACET 5/325MG TAB PO PRN (18:47)
[2022-01-30 20:00] VITALS: BP 135/87
[2022-01-30] MEDS: DOXYCYCLINE 100 MG TAB/CAP PO SCH (21:07)
[2022-01-30 22:00] VITALS: BP 135/87
[2022-01-30] MEDS ORDERED: AZITHROMYCIN 500MG/ 250ML 250 ML IV SCH (22:00)
[2022-01-31] MEDS: HYDROcodone-ACET 5/325MG TAB PO PRN ×5 (01:17→22:42)
[2022-01-31 05:03] VITALS: BP 135/72
[2022-01-31] MEDS ORDERED: ALBUTEROL MEDNEB 2.5 mg/3ml NEB ONE (06:02)
[2022-01-31] MEDS: PANTOPRAZOLE 40 MG TAB PO SCH (06:14)
[2022-01-31] MEDS: IPRATROPIUM BROM 0.5 MG/2.5ML INH SOL NEB SCH ×3 (06:35→18:53)
[2022-01-31] MEDS: ALBUTEROL SULF 2.5 MG/0.5ML(0.5%) NEB SOLN NEB SCH ×3 (06:36→18:53)
[2022-01-31 08:42] VITALS: BP 117/78
[2022-01-31] MEDS: ENOXAPARIN SOD 40 MG/0.4 ML SYRINGE SC SCH (09:45)
[2022-01-31] MEDS: FLUoxetine HCL 20 MG CAP PO SCH (09:46)
[2022-01-31] MEDS: DOXYCYCLINE 100 MG TAB/CAP PO SCH ×2 (09:46→21:36)
[2022-01-31] MEDS: predniSONE 20 MG TAB PO SCH (09:46)
[2022-01-31] MEDS: DISULFIRAM 250 MG PO SCH (09:47)
[2022-01-31] MEDS: BENAZEPRIL HCL 10 MG TAB PO SCH (09:47)
[2022-01-31] MEDS: OLANZapine 5 MG TAB PO SCH (09:47)
[2022-01-31] MEDS: NICOTINE 7MG/24HR TOPICAL PATCH TD SCH (09:48)
[2022-01-31 12:48] VITALS: BP 135/84
[2022-01-31] MEDS ORDERED: NICOTINE 21MG/24 HR TOPICAL PATCH TD ONE (14:45)
[2022-01-31 17:04] VITALS: BP 134/86
[2022-01-31 20:00] VITALS: BP 104/72
[2022-01-31] MEDS: LORazepam 0.5 MG TAB PO PRN (20:49)
[2022-01-31 22:00] VITALS: BP 104/72
[2022-02-01] MEDS: TEMAZEPAM 15 MG CAP PO PRN ×2 (00:47→21:09)
[2022-02-01 05:00] VITALS: BP 129/99
[2022-02-01] MEDS: HYDROcodone-ACET 5/325MG TAB PO PRN ×4 (05:17→20:07)
[2022-02-01] MEDS: IPRATROPIUM BROM 0.5 MG/2.5ML INH SOL NEB SCH ×3 (05:24→19:59)
[2022-02-01] MEDS: ALBUTEROL SULF 2.5 MG/0.5ML(0.5%) NEB SOLN NEB SCH ×3 (05:24→19:59)
[2022-02-01] MEDS: PANTOPRAZOLE 40 MG TAB PO SCH (06:31)
[2022-02-01 08:40] VITALS: BP 121/86
[2022-02-01] MEDS: FLUoxetine HCL 20 MG CAP PO SCH (11:40)
[2022-02-01] MEDS: predniSONE 20 MG TAB PO SCH (11:40)
[2022-02-01] MEDS: DOXYCYCLINE 100 MG TAB/CAP PO SCH ×2 (11:41→21:09)
[2022-02-01] MEDS: LORazepam 0.5 MG TAB PO PRN ×2 (11:41→23:22)
[2022-02-01] MEDS: BENAZEPRIL HCL 10 MG TAB PO SCH (11:44)
[2022-02-01] MEDS: OLANZapine 5 MG TAB PO SCH (11:54)
[2022-02-01] MEDS: DISULFIRAM 250 MG PO SCH (11:55)
[2022-02-01] MEDS: NICOTINE 21MG/24 HR TOPICAL PATCH TD SCH (11:55)
[2022-02-01] MEDS: ENOXAPARIN SOD 40 MG/0.4 ML SYRINGE SC SCH (11:55)
[2022-02-01 12:40] VITALS: BP 131/85
[2022-02-01 16:35] VITALS: BP 110/74
[2022-02-01 20:00] VITALS: BP 111/75
[2022-02-01 22:00] VITALS: BP 111/65
[2022-02-02 02:07] VITALS: BP 111/65
[2022-02-02] MEDS: HYDROcodone-ACET 5/325MG TAB PO PRN ×3 (03:37→13:40)
[2022-02-02 04:37] LABS: Basophils # (auto) 0.3 10 ^3/uL (0-0.2); Basophils % (auto) 3.1 % (0.0-2.0); Eosinophils # (auto) 0 10 ^3/uL (0-0.8); Eosinophils % (auto) 0.4 % (0.0-7.0); Hematocrit 48.6 % (41.0-53.0); Hemoglobin 16.7 g/dL (13.5-17.5); Lymphocytes # (auto) 2.5 10 ^3/uL (0.4-5.4); Lymphocytes % (auto) 27.3 % (10.0-50.0); Mean Corpuscular Hemoglobin 30.6 pg (28.0-32.0); Mean Corpuscular Hgb Conc. 34.4 g/dL (32.0-36.0); Mean Corpuscular Volume 88.9 fL (80.0-100.0); Monocytes # (auto) 0.8 10 ^3/uL (0-1.3); Monocytes % (auto) 9.2 % (0.0-12.0); Neutrophils # (auto) 5.4 10 ^3/uL (1.6-8.6); Red Blood Cells 5.47 10^6/uL (4.5-5.90); Red Cell Distribution Width 13.5 % (11.8-14.3); White Blood Cell 9.1 10^3/uL (4.4-10.8)
[2022-02-02 04:51] LABS: Albumin 3.3 g/dL (3.4-5.0); Calcium 9.2 mg/dL (8.5-10.1); Potassium 3.8 mmol/L (3.5-5.1)
[2022-02-02 04:56] LABS: Bilirubin, Total 0.4 mg/dL (0.2-1.0); Total Protein 6.7 g/dL (6.4-8.2)
[2022-02-02 05:00] VITALS: BP 115/97
[2022-02-02] MEDS: PANTOPRAZOLE 40 MG TAB PO SCH (06:18)
[2022-02-02 08:40] VITALS: BP 130/92
[2022-02-02] MEDS: OLANZapine 5 MG TAB PO SCH (09:58)
[2022-02-02] MEDS: DOXYCYCLINE 100 MG TAB/CAP PO SCH (09:59)
[2022-02-02] MEDS: ENOXAPARIN SOD 40 MG/0.4 ML SYRINGE SC SCH (10:00)
[2022-02-02] MEDS: NICOTINE 21MG/24 HR TOPICAL PATCH TD SCH (10:00)
[2022-02-02] MEDS: DISULFIRAM 250 MG PO SCH (10:00)
[2022-02-02] MEDS: FLUoxetine HCL 20 MG CAP PO SCH (10:01)
[2022-02-02] MEDS: predniSONE 20 MG TAB PO SCH (10:02)
[2022-02-02] MEDS: BENAZEPRIL HCL 10 MG TAB PO SCH (10:02)
[2022-02-02 12:40] VITALS: BP 126/78
[2022-02-02] MEDS ORDERED: DOX100T PO (13:19)
[2022-02-02] MEDS ORDERED: IPR002IS NEB (13:19)
[2022-02-02] MEDS ORDERED: ALB5IS NEB (13:19)
[2022-02-02] MEDS: LORazepam 0.5 MG TAB PO PRN (13:40)
[2022-02-02 14:15] VITALS: BP 130/92
== END 2022-02-02 17:34 | disposition home or self-care (01) | DRG 189 ==
LOC: ER 14:28 → EDBD 14:28 → EDUNIT# 14:28 → TELE 18:52 → TELE-WESTW 01-30 18:27
PROVIDERS: ADMIT Registered Nurse; ATTEND Student in an Organized Health Care Education/Training Program
DX: J96.21 Acute and chronic respiratory failure with hypoxia (principal); R65.10 Systemic inflammatory response syndrome (SIRS) of non-infectious origin without acute organ dysfunction; Z20.822 Contact with and (suspected) exposure to COVID-19; E11.65 Type 2 diabetes mellitus with hyperglycemia; F20.9 Schizophrenia, unspecified; I11.0 Hypertensive heart disease with heart failure; I50.9 Heart failure, unspecified; F12.90 Cannabis use, unspecified, uncomplicated; J43.9 Emphysema, unspecified; Z82.49 Family history of ischemic heart disease and other diseases of the circulatory system; Z82.5 Family history of asthma and other chronic lower respiratory diseases; Z99.81 Dependence on supplemental oxygen; Z72.0 Tobacco use; Z71.6 Tobacco abuse counseling
CPT/HCPCS: 36415; 36600; 71045; 80053; 80061; 80307; 80320; 81003; 82805; 83735; 83880; 84443; 84484; 85007; 85025; 85027; 85379; 85610; 85730; 87426; 87804; 93005; 94640; 96361; 96365; 96368; G0378; J0696

== ENCOUNTER → 2022-02-06 | Outpatient (CLI) | payer MEDICARE, MEDICAID ==
[~2022-02-06] MED LIST changes: +ALB5IS NEB; +DOX100T PO; +IPR002IS NEB
== END | disposition home or self-care (01) ==
LOC: Rad HDHVI 11:48
PROVIDERS: ATTEND Internal Medicine Cardiovascular Disease
DX: J98.11 Atelectasis (principal); I70.0 Atherosclerosis of aorta; M47.814 Spondylosis without myelopathy or radiculopathy, thoracic region; R06.02 Shortness of breath
CPT/HCPCS: 71046

== ENCOUNTER → 2022-04-17 | Outpatient (CLI) | payer MEDICARE, MEDICAID | END | disposition home or self-care (01) | LOC: Rad HDHVI 11:54 | PROVIDERS: ATTEND Internal Medicine Cardiovascular Disease | DX: J98.11 Atelectasis (principal); R06.02 Shortness of breath; M47.814 Spondylosis without myelopathy or radiculopathy, thoracic region | CPT/HCPCS: 71046 ==

== ENCOUNTER → 2022-06-12 | Outpatient (CLI) | payer MEDICARE, MEDICAID | END | disposition home or self-care (01) | LOC: Rad HDHVI 09:41 | PROVIDERS: ATTEND Internal Medicine Cardiovascular Disease | DX: I82.409 Acute embolism and thrombosis of unspecified deep veins of unspecified lower extremity (principal) | CPT/HCPCS: 93926 ==

== ENCOUNTER → 2022-09-27 | Outpatient (CLI) | payer MEDICARE, MEDICAID ==
[~2022-09-27] MED LIST changes: +AZIT-81 PO; -AZIT250T8 PO; +BENA-19 PO; -BENA10TA15 PO
== END | disposition home or self-care (01) ==
LOC: Rad HDHVI 10:31
PROVIDERS: ATTEND Internal Medicine Cardiovascular Disease
DX: M25.572 Pain in left ankle and joints of left foot (principal)
CPT/HCPCS: 73630

== ENCOUNTER → 2022-10-09 | Outpatient (CLI) | payer MEDICARE, MEDICAID | END | disposition home or self-care (01) | LOC: Rad HDHVI 09:59 | PROVIDERS: ATTEND Internal Medicine Cardiovascular Disease | DX: I10 Essential (primary) hypertension (principal) | CPT/HCPCS: 93306 ==

== ENCOUNTER → 2022-11-15 | Outpatient (CLI) | payer MEDICARE, MEDICAID | END | disposition home or self-care (01) | LOC: Rad HDHVI 15:50 | PROVIDERS: ATTEND Internal Medicine Cardiovascular Disease | DX: I70.203 Unspecified atherosclerosis of native arteries of extremities, bilateral legs (principal) | CPT/HCPCS: 93925 ==

== ENCOUNTER → 2022-12-25 | Outpatient (CLI) | payer MEDICARE, MEDICAID ==
[~2022-12-25] MED LIST changes: +FURO1TAB33 PO; +HYDR-4072 PO; +LORA-655 PO; +MONT5CHW12 PO; +POTA1TAB61 PO; +SUCR1TAB22 PO; +SUVO1TAB4 PO; +TRAM50TA2 PO; +ZOFR4T PO
[2022-12-25 09:00] VITALS: BP 128/71; PULSE 98; RESP 18; O2SAT 93
[2022-12-25 09:47] VITALS: BP 123/73; PULSE 96; RESP 18; O2SAT 93
== END | disposition home or self-care (01) ==
LOC: CHF HDHVI 09:15
PROVIDERS: ATTEND Internal Medicine Cardiovascular Disease
DX: Z01.818 Encounter for other preprocedural examination (principal); I73.9 Peripheral vascular disease, unspecified
CPT/HCPCS: 93005; G0463

== ENCOUNTER 2022-12-28 07:04 | Day surgery (SDC) | payer MEDICARE, MEDICAID ==
[2022-12-25 11:56] LABS: Basophils # (auto) 0.1 10 ^3/uL (0-0.2); Basophils % (auto) 0.7 % (0.0-2.0); Eosinophils # (auto) 0.1 10 ^3/uL (0-0.8); Eosinophils % (auto) 0.9 % (0.0-7.0); Hematocrit 43.2 % (41.0-53.0); Hemoglobin 14.9 g/dL (13.5-17.5); Lymphocytes # (auto) 1.7 10 ^3/uL (0.4-5.4); Lymphocytes % (auto) 14.9 % (10.0-50.0); Mean Corpuscular Hemoglobin 31.4 pg (28.0-32.0); Mean Corpuscular Hgb Conc. 34.6 g/dL (32.0-36.0); Mean Corpuscular Volume 90.9 fL (80.0-100.0); Monocytes % (auto) 9.2 % (0.0-12.0); Neutrophils # (auto) 8.4 10 ^3/uL (1.6-8.6); Neutrophils % (auto) 74.3 % (37.0-80.0); Nucleated Red Blood Cells % 0.1 %; Red Blood Cells 4.75 10^6/uL (4.5-5.90); Red Cell Distribution Width 13.3 % (11.8-14.3); White Blood Cell 11.3 10^3/uL (4.4-10.8)
[2022-12-25 12:10] LABS: Partial Thromboplastin Time 31.9 SEC (24.5-34.5); Prothrombin Time 10.5 sec (9.3-11.8)
[2022-12-25 13:03] LABS: Chloride 98 mmol/L (98-107); Potassium 3.7 mmol/L (3.5-5.1); Sodium 127 mmol/L (136-145)
[2022-12-25 13:04] LABS: Anion Gap 7 (5-15); Calcium 8.9 mg/dL (8.7-10.4); Carbon Dioxide 22 mmol/L (20-30)
[2022-12-25 13:09] LABS: BUN/Creatinine Ratio 22.2 (10.0-20.0); Blood Urea Nitrogen 18 mg/dL (9-23); Glucose 106 mg/dL (74-106)
[~2022-12-28] VITALS: Ht 185.4 cm; Wt 90.7 kg
[~2022-12-28 07:04] MED LIST changes: -ALB5IS NEB; -AZIT-81 PO; -CHOL20007 PO; -DEXA6TAB6 PO; -DOX100T PO; -IPR002IS NEB; -MULT-733 PO; -PERCOT PO
[2022-12-28] MEDS ORDERED: LIDOCAINE 2%HCL (LOCAL ANESTH.) INJ 20ML MDV ONE (09:15)
[2022-12-28] MEDS ORDERED: IOHEXOL 350 MG/ML 100ML IJ ONE (09:15)
[2022-12-28] MEDS ORDERED: fentaNYL CITRATE 100 MCG/2 ML VL ONE (09:18)
[2022-12-28] MEDS ORDERED: MIDAZOLAM HCL 2MG/2ML 2ml VIAL (1mg/ml) ONE (09:18)
[2022-12-28] MEDS ORDERED: ANGIOMAX 250 MG VIAL IV ONE (09:18)
== END 2022-12-28 12:00 | disposition home or self-care (01) ==
LOC: CATH 07:04
PROVIDERS: ATTEND Internal Medicine Cardiovascular Disease
DX: I70.202 Unspecified atherosclerosis of native arteries of extremities, left leg (principal); I10 Essential (primary) hypertension; J44.9 Chronic obstructive pulmonary disease, unspecified; M19.90 Unspecified osteoarthritis, unspecified site; K21.00 Gastro-esophageal reflux disease with esophagitis, without bleeding; F17.200 Nicotine dependence, unspecified, uncomplicated; F32.9 Major depressive disorder, single episode, unspecified; K31.84 Gastroparesis; Z79.899 Other long term (current) drug therapy; Z79.01 Long term (current) use of anticoagulants
CPT/HCPCS: 36247; 36415; 75716; 80048; 85025; 85610; 85730; C1769; C1887; C1894; J1644; J2250; J3010; Q9967; 99152

== ENCOUNTER → 2024-02-22 | Outpatient (CLI) | payer MEDICARE, MEDICAID ==
[~2024-02-22] MED LIST changes: -BENA-19 PO; +BENA10TA90 PO; -DIPH2.5T16 PO; -DISU1TAB PO; +DISU250T8 PO; +POTA-215 PO; -POTA1TAB61 PO; -SUCR1TAB22 PO; +SUCR1TAB31 PO; +[UNRECOGNIZED DRUG - CODE] PO
--- NOTE | 2024-02-22 09:53 | DVH ---
EXAM: CT HEAD WITHOUT CONTRAST INDICATION: CVA TECHNIQUE: CT of the head without intravenous contrast. Radiation Dose Information: CT Dose: CTDI volume is 48.57 mGy. Dose-length product is 874.25 mGy*cm The dose indicators for CT are the volume Computed Tomography (CT) Dose Index (CTDIvol) and the Dose Length Product (DLP), and are measured in units of mGy and mGy-cm, respectively. These indicators are not patient dose, but values generated from the CT scanner acquisition factors. The report includes radiation exposure data for exposures received during this examination. COMPARISON: None FINDINGS: There is no evidence of acute intracranial hemorrhage, extra-axial collection, mass effect, midline s hift, herniation or hydrocephalus. The ventricles, sulci and cisterns are age appropriate. The reed-white differentiation is intact. Patchy periventricular and subcortical white matter hypoattenuation is nonspecific but may be related to small vessel ischemic disease. The visualized paranasal sinuses and mastoid air cells are clear. The surrounding soft tissues and osseous structures are unremarkable. IMPRESSION: 1. No CT evidence of acute intracranial abnormality. If there is clinical concern for acute ischemia, MRI is recommended for further evaluation. HS:Y
== END | disposition home or self-care (01) ==
LOC: Rad HDHVI 09:23
PROVIDERS: ATTEND Internal Medicine Cardiovascular Disease
DX: R90.82 White matter disease, unspecified (principal); I63.9 Cerebral infarction, unspecified
CPT/HCPCS: 70450

== ENCOUNTER → 2024-03-03 | Outpatient (CLI) | payer MEDICARE, MEDICAID | END | disposition home or self-care (01) | LOC: Rad HDHVI 09:50 | PROVIDERS: ATTEND Internal Medicine Cardiovascular Disease | DX: G45.9 Transient cerebral ischemic attack, unspecified (principal); I10 Essential (primary) hypertension | CPT/HCPCS: 93880 ==

== ENCOUNTER → 2024-03-14 | Outpatient (CLI) | payer MEDICARE, MEDICAID | END | disposition home or self-care (01) | LOC: Rad HDHVI 07:50 | PROVIDERS: ATTEND Internal Medicine Cardiovascular Disease | DX: I10 Essential (primary) hypertension (principal); G45.9 Transient cerebral ischemic attack, unspecified | CPT/HCPCS: 93306 ==

== ENCOUNTER → 2024-03-24 | Outpatient (CLI) | payer MEDICARE, MEDICAID ==
[~2024-03-24] VITALS: Ht 185.4 cm; Wt 90.7 kg
[~2024-03-24] MED LIST changes: +ADENOSINE 76 MG in GIVE UN-DILUTED 0 ML IV ONE; +ADENOSINE 90 MG/30 ML INJ IV ONE
== END | disposition home or self-care (01) ==
LOC: Rad HDHVI 08:46
PROVIDERS: ATTEND Internal Medicine Cardiovascular Disease
DX: I11.0 Hypertensive heart disease with heart failure (principal); I50.9 Heart failure, unspecified; J44.9 Chronic obstructive pulmonary disease, unspecified; G45.9 Transient cerebral ischemic attack, unspecified; I73.9 Peripheral vascular disease, unspecified; I25.10 Atherosclerotic heart disease of native coronary artery without angina pectoris; Z86.79 Personal history of other diseases of the circulatory system; Z82.49 Family history of ischemic heart disease and other diseases of the circulatory system; F17.210 Nicotine dependence, cigarettes, uncomplicated
CPT/HCPCS: 78452; 93005; 96374; 96375; A9500; J0153

== ENCOUNTER 2024-04-26 15:18 | Inpatient (IN) | payer MEDICARE, MEDICAID ==
[~2024-04-26] VITALS: Ht 188 cm; Wt 95.5 kg
[~2024-04-26 15:18] MED LIST changes: -ADENOSINE 76 MG in GIVE UN-DILUTED 0 ML IV ONE; -ADENOSINE 90 MG/30 ML INJ IV ONE
--- NOTE | 2024-04-26 15:24 | ED.PDOC ---
GI ASSESSMENT HPI Comments HPI: Past Medical History: ANXIETY, DEPRESSION, CHF, COPD, HTN, SCHIZOPHRENIA Past Surgical History: TONSILLECTOMY Social History: CIGARETTES, ALCOHOL, MARIJUANA Allergies: NKDA WELLS: HPI: Poor Historian. 59-year-old male brought in by ambulance for evaluation of 3 hour history of epigastric abdominal pain constant nonradiating without any other associated symptoms. While in route EMS were concerned about possible STEMI based on their 12 lead EKG. EKG obtained here in the ED does not show STEMI at this time. Patient denies any chest pain or shortness of breath. Patient was hypotensive systolic blood pressure was in the 60s. Abdominal pain has no alleviating or precipitating factors. Past Medical History: CHF, COPD on 2 L nasal cannula at home Past Surgical History: Ankle surgery REVIEW OF SYSTEMS: CONSTITUTIONAL: Denies acute: fever, diaphoresis, chills, HEAD: Denies acute: headache, photophobia Eyes: Denies acute: Double vision, vision loss, eye pain, eye discharge. EARS: Denies acute: tinnitus, hearing loss, ear discharge, ear pain, THROAT: Denies acute: sore throat, swelling, difficulty swallowing , pain with swallowing, change in voice. NECK: Denies acute: neck pain, neck swelling, stiff neck. HEART: Denies acute : chest pain, palpitations, LUNGS: Denies acute: SOB, wheezing, cough, hemoptysis ABDOMEN: Denies acute: abdominal pain, Nausea, Vomiting, diarrhea, melena , hematemesis, hematochezia SKIN: Denies acute: rash, redness, lesions, itchiness. EXTREMITIES: Denies acute: calf pain, numbness, tingling, weakness, denies pain in extremity. Denies acute: Low back pain. Neuro: Denies acute: focal neurological deficit, motor or sensory focal neurological de ficit, tremors, seizure like activity, confusion, dizziness, change in mental status, loss of bowel or bladder function, cauda equina like symptoms. : Denies acute: dysuria, hematuria, flank pain, increase in urinary frequency. PSYCH: Denies acute: hallucination, suicidal ideation, homicidal ideation. PHYSICAL EXAM: General: no acute distress, awake and alert. Head: normocephalic, atraumatic. Neck: supple, trachea is midline, no swelling. Throat: Normal phonation. Eyes:, no erythema, no purulent discharge, no proptosis, no icterus. Heart: regular rate, regular rhythm, no significant murmur appreciated. Lungs: no apparent respiratory distress, Able to speak in full sentences. No wheezing, no rhonchi, no crackles. No stridors Clear to auscultation bilaterally. Abdomen: Epigastric tender to palpation, non distended, soft, no guarding, no rebound, + bowel sounds. Neuro: Awake, Alert, oriented to name, self, situation, follows commands GCS=15. Speech is normal. Skin: no petechia, no purpura, no cyanosis, non-pale, not jaundice. Lower extremities: --no - Pitting edema no deformity, no focal swelling, no calf TTP. Makes eye contact. moves all four extremities. Face: no apparent facial droop. ED COURSE: Time Seen by MD: 15:22 Primary Care Provider: UNKNOWN Reviewed Notes: Nurses Notes, Allergies Allergies: Coded Allergies: NO KNOWN ALLERGIES (Unverified , 06/21/09) Home Meds Reported Medications Potassium Chloride (Klor-Con M10) 10 Meq Tab, 1 TAB PO DAILY 12/25/22 Furosemide (Lasix) 20 Mg Tb, 1 TAB PO DAILY 12/25/22 Hydrocodone-Acetaminophen (Hydrocodone/Acetaminophen 10-325 mg) 1 Tab Tab, 1 TAB PO TID 12/25/22 Tramadol Hcl (Tramadol Hcl) 50 Mg Tab, 50 MG PO BID 12/25/22 Lorazepam (Ativan) 0.5 Mg Tab, 1 MG PO qhs 12/25/22 Montelukast Sodium (Singulair) 5 Mg Chw, 10 MG PO DAILY 12/25/22 Suvorexant (Belsomra) 20 Mg Tab, 20 MG PO DAILY 12/25/22 Sucralfate (CARAFATE) 1 Gm Tab, 2 GM PO BID 12/25/22 Ondansetron Odt 4MG Tab (ZOFRAN PO) 4 Mg Tb, 4 MG PO Q8HPRN PRN for NAUSEA / VOMITING ODT TAB-DISSOLVE IN MOUTH, THEN SWALLOW 12/25/22 Fluoxetine Hcl (Fluoxetine Hcl) 40 Mg Cap, 1 CAP PO DAILY 12/28/20 Disulfiram (DISULFIRAM) 250 Mg Tab, 1 TAB PO DAILY 12/28/20 Diphenoxylate W/ Atropine (Diphenoxylate/Atropine 2.5-0.025 mg) 1 Tab Tab, 1 TAB PO QID PRN for FOR DIARRHEA 12/28/20 Dexlansoprazole (Dexilant) 60 Mg Cap, 1 CAP PO BID 12/28/20 Albuterol Sulfate (Albuterol Sulfate Hfa) 108 Mcg/Act Aer, 2 PUFF PO Q4HPRN PRN for wheezing 12/28/20 Benazepril Hcl (Benazepril Hcl) 10 Mg Tab, 1 TAB PO DAILY 12/28/20 Wffqbzhzjtt-Bgsdbmimkxma-Axegw (Trelegy Ellipta 100-62.5-25 Mcg/INH) 1 Aer Aer, 1 PUFF PO DAILY 12/28/20 Olanzapine (Zyprexa) 20 Mg Tab, 20 MG PO DAILY 12/06/20 Information Source: Patient, Emergency Med Personnel Past Medical History PAST MEDICAL HISTORY: Anxiety, CHF, COPD, Depression, HTN, Schizophrenia Surgical History: Tonsillectomy Family History Family History: Reviewed,noncontributory to illness, Family hx of heart olga Social History Smoker: Quit Less Than 1 Year, Cigarettes Alcohol: Sober Drugs: Marijuana Lives In: Home Was a procedure done? Was a procedure done?: No GI differential Dx Differential Diagnosis: Other (DDX include but not limited to diverticulitis, colitis, gastroenteritis, acute abdomen, SBO, enteritis, constipation, volvulus, appendicitis, Gallbladder disease, choledocolithiasis, ascending cholangitis, pancreatitis, intraAbdominal mass/neoplasm, hepatitis, UTI, pylonephritis, kidney stone, aneurysm, dissection, Inflammatory bowel disease, gastroparesis, ischemic bowel.) X-Ray, Labs, Meds, VS Vital Signs Date Time Temp Pulse Resp B/P (MAP) Pulse Ox O2 Delivery O2 Flow Rate FiO2 04/26/24 19:00 82 15 100/58 (72) 79 04/26/24 18:45 82 16 85/67 (73) 100 04/26/24 18:30 82 13 73/50 (58) 98 04/26/24 18:25 80 16 99/60 (73) 92 04/26/24 18:15 82/61 04/26/24 18:15 94/70 04/26/24 18:15 84 16 82/61 (68) 93 04/26/24 18:14 94/70 04/26/24 18:00 80 04/26/24 18:00 80 15 104/65 (78) 93 04/26/24 17:45 82 16 92/62 (72) 92 04/26/24 17:30 80 16 83/60 (68) 88 04/26/24 17:15 85 16 90/36 (54) 91 04/26/24 17:00 81 17 90/56 (67) 98 04/26/24 16:50 83 17 81/57 (65) 90 04/26/24 16:40 87 15 71/50 (57) 97 04/26/24 16:35 97.6 90 19 04/26/24 16:30 87 15 73/45 (54) 97 04/26/24 16:12 92/57 04/26/24 16:10 92/57 (69) 04/26/24 16:05 80/59 (66) 04/26/24 16:00 85/49 (61) 04/26/24 15:55 83/49 (60) 04/26/24 15:46 76/49 (58) 04/26/24 15:40 90 12 79/54 (62) 95 04/26/24 15:37 Nasal Cannula* 5 40 04/26/24 15:33 97.6 96 18 72/45 (54) 90 97.6 04/26/24 15:31 99.8 42 15 60/42 (48) 95 04/26/24 15:20 94 Lab Test 04/26/24 19:09 04/26/24 18:21 04/26/24 17:29 04/26/24 16:36 Range/Units White Blood Count Pending Red Blood Count Pending Hemoglobin Pending Hematocrit Pending Mean Corpuscular Volume Pending Mean Corpuscular Hemoglobin Pending Mean Corpuscular Hemoglobin Concent Pending Red Cell Distribution Width Pending Platelet Count Pending Mean Platelet Volume Pending Neutrophils (%) (Auto) Pending Lymphocytes (%) (Auto) Pending Monocytes (%) (Auto) Pending Basophils (%) (Auto) Pending Neutrophils # (Auto) Pending Lymphocytes # (Auto) Pending Monocytes # (Auto) Pending Prothrombin Time Pending Prothrombin Time INR Pending Activated Partial Thromboplast Time Pending Sodium Level Pending Potassium Level Pending Chloride Level Pending Carbon Dioxide Level Pending Anion Gap Pending Blood Urea Nitrogen Pending Creatinine Pending Glomerular Filtration Rate Calc Pending BUN/Creatinine Ratio Pending Serum Glucose Pending Hemoglobin A1c Pending Lactic Acid Level Pending 4.5 *H 0.4-2.0 mmol/L Calcium Level Pending Total Bilirubin Pending Aspartate Amino Transferase (AST) Pending Alanine Aminotransferase (ALT) Pending Alkaline Phosphatase Pending Total Protein Pending Albumin Pending Lipase Pending Troponin I High Sensitivity 71 *H 70 *H </=54 ng/L Test 04/26/24 15:35 Range/Units White Blood Count 38.2 *H 4.4-10.8 10^3/uL Red Blood Count 5.82 4.5-5.90 10^6/uL Hemoglobin 18.8 H 13.5-17.5 g/dL Hematocrit 55.8 H 41.0-53.0 % Mean Corpuscular Volume 96.0 80.0-100.0 fL Mean Corpuscular Hemoglobin 32.3 H 28.0-32.0 pg Mean Corpuscular Hemoglobin Concent 33.7 32.0-36.0 g/dL Red Cell Distribution Width 13.3 11.8-14.3 % Platelet Count 419 140-450 10^3/uL Mean Platelet Volume 7.6 6.9-10.8 fL Neutrophils (%) (Auto) 37.0-80.0 % Lymphocytes (%) (Auto) 10.0-50.0 % Monocytes (%) (Auto) 0.0-12.0 % Basophils (%) (Auto) 0.0-2.0 % Neutrophils # (Auto) 1.6-8.6 10 ^3/uL Lymphocytes # (Auto) 0.4-5.4 10 ^3/uL Monocytes # (Auto) 0-1.3 10 ^3/uL Differential Total Cells Counted 100.0 100 Neutrophils % (Manual) 71 37.0-80.0 Band Neutrophils % (Manual) 17 Lymphocytes % (Manual) 4 L 10.0-50.0 Monocytes % (Manual) 7 0-12 Eosinophils % (Manual) 0 0-7 Basophils % (Manual) 0 0.0-2.0 Metamyelocytes % (manual) 1 Myelocytes % (Manual) 0 Promyelocytes % (Manual) 0 Blast Cells % (Manual) 0 Reactive Lymphocytes 0 Platelet Estimate [place] Large Platelets Few Sodium Level 129 L 136-145 mmol/L Potassium Level 4.8 3.5-5.1 mmol/L Chloride Level 96 L 98-107 mmol/L Carbon Dioxide Level 19 L 20-31 mmol/L Anion Gap 14 5-15 Blood Urea Nitrogen 20 9-23 mg/dL Creatinine 1.44 H 0.700-1.30 mg/dL Glomerular Filtration Rate Calc 57 >90 mL/min BUN/Creatinine Ratio 13.9 10.0-20.0 Serum Glucose 194 H 74-106 mg/dL Lactic Acid Level 5.0 *H 0.4-2.0 mmol/L Calcium Level 10.4 8.7-10.4 mg/dL Total Bilirubin 0.4 0.2-1.0 mg/dL Aspartate Amino Transferase (AST) 144 H 13-40 U/L Alanine Aminotransferase (ALT) 54 H 7-40 U/L Alkaline Phosphatase 170 H 46-116 U/L Troponin I High Sensitivity 70 *H </=54 ng/L B-Type Natriuretic Peptide 82.32 0-100 pg/mL Total Protein 6.4 5.7-8.2 g/dL Albumin 4.2 3.2-4.8 g/dL Lipase 67 H 12-53 U/L Current Medications Medications (Trade) Dose Ordered Sig/Clarence Route Start Time Stop Time Status Last Admin Fentanyl Citrate 50 mcg ONCE ONCE IV 04/26/24 16:15 04/26/24 16:16 DC 04/26/24 16:12 Sodium Chloride 1,000 ml @ 1,000 mls/hr Q1H ONCE IV 04/26/24 16:30 04/26/24 17:29 DC 04/26/24 15:30 Piperacillin Sod/ Tazobactam Sod 100 ml @ 100 mls/hr ONCE ONCE IV 04/26/24 16:45 04/26/24 17:44 DC 04/26/24 17:27 Sodium Chloride 1,000 ml @ 1,000 mls/hr Q1H ONCE IV 04/26/24 16:45 04/26/24 17:44 DC 04/26/24 16:10 Furosemide (Lasix Injection) 20 mg ONCE ONCE IV 04/26/24 17:45 04/26/24 17:46 DC 04/26/24 18:15 Norepinephrine Bitartrate 250 ml @ 3.75 mls/hr Q24H IV 04/26/24 17:45 04/26/24 18:15 Fentanyl Citrate 50 mcg ONCE ONCE IV 04/26/24 17:45 04/26/24 17:46 DC 04/26/24 18:14 [place] [address] Ph: [phone] DIAGNOSTIC IMAGING Diagnostic Imaging Report : [id number] Signed PATIENT: VITA CAST ACCT: [id number] UNIT: [id number] : 1965 LOC: ER ROOM / BED: / AGE / SEX: 59 / M ADM STATUS: REG ER SERVICE 1522 ORDERING PHYSICIAN: EZRA TALAMANTES DO PROCEDURE(s): CXRP - CHEST PORTABLE REASON: epig pain ORDER NUMBER(s): [id number], ACCESSION NUMBER(s): [id number] CHEST RADIOGRAPH Indication: epig pain Technique: Single frontal view of the chest was obtained Comparison: CXRP on DOS: 01/29/22, CHEST PORTABLE on DOS: 01/29/22 FINDINGS: Lines and Tubes: None Lungs: Bilateral perihilar infiltrates and lower lobe airspace disease findings may represent bronchitis. No pneumothorax. Cardiomediastinal contours: Unremarkable Bones: No acute osseous abnormality. IMPRESSION: 1. Bilateral perihilar infiltrates and bibasilar airspace disease and atelectasis. Correlate for possible bronchitis ATED BY: CHANTAL TIMMONS Jr., DO DICTATED DATE/TIME: 04/26/241644 SIGNED BY: CHANTAL TIMMONS Jr., SIGNED DATE/TIME: 04/26/241644 [address] [address] Ph: [phone] DIAGNOSTIC IMAGING Diagnostic Imaging Report : [id number] Signed PATIENT: VITA CAST ACCT: [id number] UNIT: [id number] : 1965 LOC: ER ROOM / BED: / AGE / SEX: 59 / M ADM STATUS: REG ER SERVICE 1522 ORDERING PHYSICIAN: EZRA TALAMANTES DO PROCEDURE(s): ABPL - CT AB PEL WO CON-NO ORAL OR IV REASON: epig pain ORDER NUMBER(s): [id number], ACCESSION NUMBER(s): [id number] Procedure: CT CT AB PEL WO CON-NO ORAL OR IV 04/26/2024 04:14 PM Indication: epig pain Comparison Study: None Technique: Axial images were obtained and reformatted in coronal and sagittal planes. All CT scans at this medical facility are performed using dose modulation techniques as appropriate to a performed exam including the following: Automated exposure control was utilized; adjustment of the MA and/or KV according to patient size; and use of iterative reconstruction technique. CT Dose: CTDI volume is 23.35 mGy. Dose-length product is 1238.27 mGy*cm FINDINGS: Lower Chest: Bibasilar subsegmental atelectasis is noted. Hepatobiliary: Unremarkable. Spleen: Unremarkable. Pancreas: Unremarkable. Adrenal Glands: Unremarkable. tract: The kidneys are normal in size bilaterally without hydronephrosis or nephrolithiasis. The urinary bladder is unremarkable. GI tract: The stomach is moderately fluid distended. Small bowel is normal in caliber. Large bowel is moderately fluid distended. Moderate fecal material noted throughout the large bowel. The appendix is mildly dilated measuring 0.7 cm in caliber with mild mural thickening and adjacent fat stranding. Lymphatics: No mesenteric, retroperitoneal or periportal lymphadenopathy. Vasculature: The abdominal aorta is normal in in caliber. Pelvic Organs: Unremarkable Bones/soft tissues: Severe chronic appearing anterior compression deformity of T12 with 3 mm retropulsion. There is moderate central compression deformity of L1 with approximately 50% loss of height central bone loss without significant retropulsion. Advanced multilevel degenerative disc disease posterior facet arthropathy noted. Levoscoliosis of the lumbar spine. Sacroiliac joints are intact. Other: None. IMPRESSION: 1. The stomach is moderately fluid distended. Suggest decompression by placement of an enteric tube. 2. Moderate fluid and fecal distention of the large bowel with loss of haustration without Mural thickening. 3. Borderline dilated appendix measuring 0.7 cm in caliber with mild mural thickening and adjacent fat stranding without an appendicolith. Developing appendicitis can not be ruled out. Recommend clinical and biochemical correlation. ATED BY: ARABELLA GUPTA MD DICTATED DATE/TIME: 04/26/241814 SIGNED BY: ARABELLA GUPTA MD SIGNED DATE/TIME: 04/26/241814 Time of 1ST Reevaluation: 15:52 Reevaluation 1ST: Unchanged Time of 2ND Reevaluation: 18:45 (The case was discussed with the general surgery team (HPI, physical exam, labs and diagnostic tests that were available at the time of disposition, ED course, treatment plan) on the phone. They agreed to come and evaluate the patient here in the ED. No further recommendations. Dr. Meza. ) Time of 3RD Reevaluation: 18:57 (General surgery evaluated the patient at bedside. They recommend repeating lactic acid and CBC CMP and PT PTT INR and NG tube and admit the patient to ICU. They will follow in consult. Dr. Meza.) Consultation: Surgery Patient Education/Counseling: Diagnosis, Treatment Family Education/Counseling: No Family Present Assigned to Dr. dr. Mi. The care of this patient was transferred to my colleague to follow up on repeat labs and notified the appropriate team as necessary. Comments Patient presented with the above HPI.---abdominal pain---workup was initiated. patient was found with the above mentioned diagnosis. the following medications were ordered: please refer to order lists of meds and tests obtained by myself Dr. Talamantes. Patient ED course and VS have been stabilized. Patient has been reassessed in the ED and remained in a stable condition. Pertinent incidental findings were discussed with the patient and/or family. Patient/family voices understanding and is agreeable with plan. Patient has been observed in the ED adequate length of time to insure improvement/stability. Escalation of care considered: Consideration of escalation to observation or admission Patient was ADMITTED to the medicine team for further evaluation and treatment of their presentation. General surgery was consulted. Patient was given fluids. Sepsis protocol initiated with the antibiotics. Patient was started on Levophed small dose. All the reports of any imaging studies that were ordered by myself were reviewed by myself. Departure 1 Departure Time of Disposition: 16:47 Impression: Primary Impression: Sepsis Additional Impressions: Leukocytosis Abdominal pain Septic shock Bilateral pneumonia Disposition: ADMITTED INPATIENT Admit to: ICU Condition: Critical Discharged With: Self Critical Care Note Critical Care Time?: Yes (90 min-critical care time only) Heart Score Heart Score: Heart Score Response (Comments) Value History Slightly Suspicious 0 EKG Normal 0 Age 45-64 1 Risk Factors 1 or 2 risk factors 1 Troponin 1-2 x's Normal limit 1 Total 3 I personally scribed for EZRA TALAMANTES DO ([email or web address]) on 04/26/24 at 15:24. Electronically submitted by Heber Zuñiga ([email or web address]). I personally scribed for EZRA TALAMANTES DO ([email or web address]) on 04/26/24 at 17:15. Electronically submitted by Heber Zuñiga ([email or web address]). I personally scribed for EZRA TALAMANTES DO ([email or web address]) on 04/26/24 at 18:21. Electronically submitted by Heber Zuñiga ([email or web address]). EZRA TALAMANTES DO Apr 26, 2024 15:24
[2024-04-26] MEDS: SODIUM CHLORIDE 0.9% 1,000 ML IV ONE ×2 (15:30→16:10)
[2024-04-26 15:52] LABS: Red Cell Distribution Width 13.3 % (11.8-14.3)
[2024-04-26 15:55] LABS: Hematocrit 55.8 % (41.0-53.0); Hemoglobin 18.8 g/dL (13.5-17.5); Mean Corpuscular Hemoglobin 32.3 pg (28.0-32.0); Mean Corpuscular Hgb Conc. 33.7 g/dL (32.0-36.0); Platelet Count (auto) 419 10^3/uL (140-450); Red Blood Cells 5.82 10^6/uL (4.5-5.90)
[2024-04-26 16:06] LABS: Albumin 4.2 g/dL (3.2-4.8); Anion Gap 14 (5-15); BUN/Creatinine Ratio 13.9 (10.0-20.0); Blood Urea Nitrogen 20 mg/dL (9-23); Potassium 4.8 mmol/L (3.5-5.1); Total Protein 6.4 g/dL (5.7-8.2)
[2024-04-26 16:07] LABS: Bilirubin, Total 0.4 mg/dL (0.2-1.0)
[2024-04-26 16:09] LABS: Alanine Aminotransferase 54 U/L (7-40); Alkaline Phosphatase 170 U/L (46-116); Aspartate Aminotransferase 144 U/L (13-40); Calcium 10.4 mg/dL (8.7-10.4); Carbon Dioxide 19 mmol/L (20-31); Chloride 96 mmol/L (98-107); Glucose 194 mg/dL (74-106); Lipase 67 U/L (12-53); Sodium 129 mmol/L (136-145)
[2024-04-26] MEDS: fentaNYL CITRATE 100 MCG/2 ML VL IV ONE ×2 (16:12→18:14)
[2024-04-26 16:31] LABS: White Blood Cell 38.2 10^3/uL (4.4-10.8)
[2024-04-26 16:32] LABS: Basophils % (manual) 0 (0.0-2.0); Blast Cells 0; Eosinophils % (manual) 0 (0-7); Myelocytes % 0; Promyelocytes % 0; Reactive Lymphocytes 0
--- NOTE | 2024-04-26 16:48 | DVH ---
CHEST RADIOGRAPH Indication: epig pain Technique: Single frontal view of the chest was obtained Comparison: CXRP on DOS: 01/29/22, CHEST PORTABLE on DOS: 01/29/22 FINDINGS: Lines and Tubes: None Lungs: Bilateral perihilar infiltrates and lower lobe airspace disease findings may represent bronchi tis. No pneumothorax. Cardiomediastinal contours: Unremarkable Bones: No acute osseous abnormality. IMPRESSION: 1. Bilateral perihilar infiltrates and bibasilar airspace disease and atelectasis. Correlate for poss ible bronchitis
[2024-04-26] MEDS: PIPERACILLIN-TAZOB 3.375GM 100 ML IV ONE (17:27)
[2024-04-26 17:50] LABS: Band Neutrophils % (manual) 17; Large Platelets FEW; Lymphocytes % (manual) 4 (10.0-50.0); Metamyelocytes % 1; Monocytes % (manual) 7 (0-12); Platelet Estimate Adequa
[2024-04-26] MEDS: NOREPINEPHRINE 8 MG/250ML KIT 250 ML IV SCH (18:15)
[2024-04-26] MEDS: FUROSEMIDE 20 MG/2 ML VIAL IV ONE (18:15)
--- NOTE | 2024-04-26 18:18 | DVH ---
Procedure: CT CT AB PEL WO CON-NO ORAL OR IV 04/26/2024 04:14 PM Indication: epig pain Comparison Study: None Technique: Axial images were obtained and reformatted in coronal and sagittal planes. All CT scans at this medical facility are performed using dose modulation techniques as appropriate to a performed e xam including the following: Automated exposure control was utilized; adjustment of the MA and/or KV according to patient size; and use of iterative reconstruction technique. CT Dose: CTDI volume is 23. 35 mGy. Dose-length product is 1238.27 mGy*cm FINDINGS: Lower Chest: Bibasilar subsegmental atelectasis is noted. Hepatobiliary: Unremarkable. Spleen: Unremarkable. Pancreas: Unremarkable. Adrenal Glands: Unremarkable. tract: The kidneys are normal in size bilaterally without hydronephrosis or nephrolithiasis. The u rinary bladder is unremarkable. GI tract: The stomach is moderately fluid distended. Small bowel is normal in caliber. Large bowel is moderately fluid distended. Moderate fecal material noted throughout the large bowel. The appendix i s mildly dilated measuring 0.7 cm in caliber with mild mural thickening and adjacent fat stranding. Lymphatics: No mesenteric, retroperitoneal or periportal lymphadenopathy. Vasculature: The abdominal aorta is normal in in caliber. Pelvic Organs: Unremarkable Bones/soft tissues: Severe chronic appearing anterior compression deformity of T12 with 3 mm retropul binh. There is moderate central compression deformity of L1 with approximately 50% loss of height ce ntral bone loss without significant retropulsion. Advanced multilevel degenerative disc disease poste rior facet arthropathy noted. Levoscoliosis of the lumbar spine. Sacroiliac joints are intact. Other: None. IMPRESSION: 1. The stomach is moderately fluid distended. Suggest decompression by placement of an enteric tube. 2. Moderate fluid and fecal distention of the large bowel with loss of haustration without Mural thic kening. 3. Borderline dilated appendix measuring 0.7 cm in caliber with mild mural thickening and adjacent fa t stranding without an appendicolith. Developing appendicitis can not be ruled out. Recommend clinica l and biochemical correlation.
--- NOTE | 2024-04-26 18:25 | ECG ---
[facility] Test Date: 2024-04-26 Test Time: 15:20:59 Pat Name: VITA CAST Department: ED Room: 0235 Gender: M [employer] Manager: ROMMEL : 1965 Requested By: EZRA TALAMANTES Order Number: [id number] Reading MD: Chun Brown Measurements Intervals [place] Rate: 94 P: 73 NM: 148 QRS: 85 QRSD: 95 T: 26 QT: 346 QTc: 433 Interpretive Statements Sinus rhythm Low voltage, precordial leads Probable anteroseptal infarct, old Electronically Signed On 04-30-2024 16:45:21 PDT by Chun Brown Please click the below link to view image of tracing.
[2024-04-26] MEDS ORDERED: IPRATROPIUM BROM 0.5 MG/2.5ML INH SOL NEB PRN (19:15)
[2024-04-26] MEDS ORDERED: ALBUTEROL SULF 2.5 MG/0.5ML(0.5%) NEB SOLN NEB PRN (19:15)
[2024-04-26] MEDS ORDERED: DOCUSATE SOD 100 MG CAP PO PRN (19:15)
[2024-04-26 19:43] LABS: Anion Gap 12 (5-15); Chloride 101 mmol/L (98-107); Lipase 44 U/L (12-53); Potassium 4.9 mmol/L (3.5-5.1)
[2024-04-26 19:44] LABS: Albumin 3.8 g/dL (3.2-4.8); Basophils # (auto) 0 10 ^3/uL (0-0.2); Basophils % (auto) 0.1 % (0.0-2.0); Bilirubin, Total 0.3 mg/dL (0.2-1.0); Eosinophils # (auto) 0 10 ^3/uL (0-0.8); Hematocrit 52.5 % (41.0-53.0); Hemoglobin 17.8 g/dL (13.5-17.5); Lymphocytes # (auto) 0.5 10 ^3/uL (0.4-5.4); Lymphocytes % (auto) 1.3 % (10.0-50.0); Mean Corpuscular Hemoglobin 32.4 pg (28.0-32.0); Mean Corpuscular Volume 95.2 fL (80.0-100.0); Monocytes # (auto) 1.6 10 ^3/uL (0-1.3); Monocytes % (auto) 4.6 % (0.0-12.0); Neutrophils # (auto) 33.1 10 ^3/uL (1.6-8.6); Platelet Count (auto) 356 10^3/uL (140-450); Red Blood Cells 5.51 10^6/uL (4.5-5.90); Red Cell Distribution Width 13.3 % (11.8-14.3)
[2024-04-26 19:45] VITALS: PULSE 87; RESP 11; O2SAT 93
[2024-04-26 19:50] LABS: Alanine Aminotransferase 51 U/L (7-40); Alkaline Phosphatase 145 U/L (46-116); Aspartate Aminotransferase 144 U/L (13-40); Blood Urea Nitrogen 26 mg/dL (9-23); Carbon Dioxide 15 mmol/L (20-31); Glucose 193 mg/dL (74-106); Sodium 128 mmol/L (136-145)
[2024-04-26 20:02] LABS: White Blood Cell 35.2 10^3/uL (4.4-10.8)
[2024-04-26 20:03] LABS: Lactic Acid w/Reflex 3.1 mmol/L (0.4-2.0)
[2024-04-26 20:08] LABS: INR 1.36 (0.9-1.15)
[2024-04-26 20:10] LABS: Partial Thromboplastin Time 75.1 SEC (24.5-34.5)
[2024-04-26] MEDS: SODIUM CHLORIDE 0.9% 1,000 ML IV SCH (20:41)
--- NOTE | 2024-04-26 20:55 | DVHHP2 ---
History of Present Illness Reason for Visit: Hypotension History of Present Illness Patient is a 59-year-old male with past medical history of COPD, CHF, anxiety, depression, schizophrenia, and hypertension who presented to [facility] ED with complaint of acute abdominal pain. Patient reports symptoms progressively get worse with constant nonradiating abdominal pain, getting worse that prompted this visit. Patient was seen and evaluated in the ED with bruises all his body, laboratory data shows WBC 38.2, platelets 419, sodium 129, potassium 4.8, BUN 20, creatinine 1.44, GFR 57, glucose 194, hemoglobin A1c 5.7, troponin 70, lactic acid 4.5, BNP 82.32, AST 144, ALT 54, lipase 67, PT 14.0, INR 1.36, APTT 75.1 trending down to 52.4, blood pressure 73/50, heart rate 82, temperature 97.6 F, O2 saturation 92% oxygen. Abdomen/pelvis CT showed moderately fluid distended, suggest decompression by placement of an enteric tube, moderate fluid and fecal distention of the large bowel with loss of haustration without mural thickening, borderline dilated appendix measuring 0.7 cm in caliber with mild mural thickening and adjacent fat stranding without and appendicolith, developing appendicitis can not be ruled out. Chest x-ray revealing bilateral perihilar infiltrates and bibasilar airspace disease and atelectasis; correlate for possible bronchitis. EKG showed no STEMI at this time. Patient was started Levophed, please see medication orders section in the computer. On my assessment, patient denied chest pain, no headache, no dizziness, diaphoresis, currently on oxygen, no diarrhea, no nausea, vomiting, no fever, no chills. Patient was admitted for further evaluation and medical management. Past Medical History Anxiety, CHF, COPD, Depression, HTN, Schizophrenia Past Surgical History Tonsillectomy, Ankle surgery Family History Reviewed, noncontributory to the management of this case. Past Social History Patient lives at home, smokes cigarettes, sober alcohol, uses marijuana. Review of Systems Constitutional: Yes: Weakness; No: Fever, Chills, Sweats, Malaise, Other Eyes: No: Pain, Vision change, Conjunctivae inflammation, Eyelid inflammation, Other, Redness ENT: No: Ear pain, Ear discharge, Nose pain, Nose discharge, Nose congestion, Mouth pain, Mouth swelling, Throat pain, Throat swelling, Other Respiratory: No: Cough, Dry, Shortness of breath, SOB with excertion, Wheezing, Hemoptysis, Pleuritic Pain, Sputum, Wheezing, Other Cardiovascular: Other (Hypotension); No: Chest Pain, Palpitations, Orthopnea, Paroxysmal Noc. Dyspnea, Edema, Lt Headedness Gastrointestinal: Abdominal Pain; No: Nausea, Vomiting, Diarrhea, Constipation, Melena, Hematochezia, Other Genitourinary: No Dysuria, No Frequency, No Incontinence, No Hematuria, No Retention, No Other Musculoskeletal: No: other, neck pain, shoulder pain, arm pain, back pain, hand pain, leg pain, foot pain Skin: Bruising (Skin); No: Rash, Lesions, Jaundice, Other Neurological: No: Weakness, Numbness, Incoordination, Change in speech, Confusion, Seizures, Other Allergies: Coded Allergies: NO KNOWN ALLERGIES (Unverified , 06/21/09) Medications Current Medications Medications Dose Ordered Sig/Clarence Route Start Time Stop Time Status Last Admin Dose Admin Norepinephrine Bitartrate 250 ml @ 3.75 mls/hr Q24H IV 04/26/24 17:45 04/26/24 18:15 3.75 MLS/HR Piperacillin Sod/ Tazobactam Sod 100 ml @ 25 mls/hr Q8HR IV 04/26/24 22:00 Sodium Chloride 1,000 ml @ 100 mls/hr Q10H IV 04/26/24 19:15 04/26/24 20:41 100 MLS/HR Ibuprofen 600 mg Q8HP PRN PO 04/26/24 19:15 Albuterol 2.5 mg Q4HPRN PRN NEB 04/26/24 19:15 Ipratropium [place] 0.5 mg Q4HPRN PRN NEB 04/26/24 19:15 Famotidine 20 mg DAILY IV 04/27/24 10:00 Acetaminophen/ Hydrocodone Bitart 1 tab Q4HP PRN PO 04/26/24 19:15 Ondansetron HCl 4 mg Q4HP PRN IV 04/26/24 19:15 Docusate Sodium 100 mg BIDPRN PRN PO 04/26/24 19:15 Heparin Sodium (Porcine) 5,000 units Q12HR SC 04/26/24 22:00 Exam Vital Signs Vital Signs Date Time Temp Pulse Resp B/P (MAP) Pulse Ox O2 Delivery O2 Flow Rate FiO2 04/26/24 19:45 87 11 98/65 (76) 93 04/26/24 16:35 97.6 04/26/24 15:37 Nasal Cannula* 5 40 General Appearance: Alert, Oriented X3, Cooperative, No acute distress HEENT: Atraumatic, PERRLA, EOMI, Mucous membr. moist/pink Respiratory: Normal air movement, Other (Diminished breath sounds) Cardiovascular: Regular rate, Normal S1, Normal S2, No murmurs Abdominal: Normal bowel sounds, Soft, No tenderness, No hepatospenomegaly, No masses Extremities: No clubbing, No cyanosis, No edema, Normal pulses, No tenderness/swelling Skin: No rashes, No breakdown, No significant lesion Neuro: Normal speech, Normal tone, Sensation intact, Cranial nerves 3-12 NL, Reflexes 2+, Other (Generalized weakness) Psych/Mental Status: Mental status NL, Mood NL Labs/Xrays Labs Test 04/26/24 19:09 04/26/24 18:21 04/26/24 15:35 Range/Units White Blood Count 35.2 *H 4.4-10.8 10^3/uL Red Blood Count 5.51 4.5-5.90 10^6/uL Hemoglobin 17.8 H 13.5-17.5 g/dL Hematocrit 52.5 41.0-53.0 % Mean Corpuscular Volume 95.2 80.0-100.0 fL Mean Corpuscular Hemoglobin 32.4 H 28.0-32.0 pg Mean Corpuscular Hemoglobin Concent 34.0 32.0-36.0 g/dL Red Cell Distribution Width 13.3 11.8-14.3 % Platelet Count 356 140-450 10^3/uL Mean Platelet Volume 7.9 6.9-10.8 fL Neutrophils (%) (Auto) 94.0 H 37.0-80.0 % Lymphocytes (%) (Auto) 1.3 L 10.0-50.0 % Monocytes (%) (Auto) 4.6 0.0-12.0 % Eosinophils (%) (Auto) 0.0 0.0-7.0 % Basophils (%) (Auto) 0.1 0.0-2.0 % Neutrophils # (Auto) 33.1 H 1.6-8.6 10 ^3/uL Lymphocytes # (Auto) 0.5 0.4-5.4 10 ^3/uL Monocytes # (Auto) 1.6 H 0-1.3 10 ^3/uL Eosinophils # (Auto) 0 0-0.8 10 ^3/uL Basophils # (Auto) 0 0-0.2 10 ^3/uL Nucleated Red Blood Cells 0.0 % Prothrombin Time 14.0 H 9.3-11.8 sec Prothrombin Time INR 1.36 H 0.9-1.15 Activated Partial Thromboplast Time 75.1 *H 24.5-34.5 SEC Sodium Level 128 L 136-145 mmol/L Potassium Level 4.9 3.5-5.1 mmol/L Chloride Level 101 98-107 mmol/L Carbon Dioxide Level 15 L 20-31 mmol/L Anion Gap 12 5-15 Blood Urea Nitrogen 26 H 9-23 mg/dL Creatinine 1.53 H 0.700-1.30 mg/dL Glomerular Filtration Rate Calc 53 >90 mL/min BUN/Creatinine Ratio 17.0 10.0-20.0 Serum Glucose 193 H 74-106 mg/dL Hemoglobin A1c 5.7 <5.7 % A1C Lactic Acid Level 3.1 *H 0.4-2.0 mmol/L Calcium Level 9.0 8.7-10.4 mg/dL Total Bilirubin 0.3 0.2-1.0 mg/dL Aspartate Amino Transferase (AST) 144 H 13-40 U/L Alanine Aminotransferase (ALT) 51 H 7-40 U/L Alkaline Phosphatase 145 H 46-116 U/L Total Protein 6.0 5.7-8.2 g/dL Albumin 3.8 3.2-4.8 g/dL Lipase 44 12-53 U/L Troponin I High Sensitivity 71 *H </=54 ng/L Differential Total Cells Counted 100.0 100 Neutrophils % (Manual) 71 37.0-80.0 Band Neutrophils % (Manual) 17 Lymphocytes % (Manual) 4 L 10.0-50.0 Monocytes % (Manual) 7 0-12 Eosinophils % (Manual) 0 0-7 Basophils % (Manual) 0 0.0-2.0 Metamyelocytes % (manual) 1 Myelocytes % (Manual) 0 Promyelocytes % (Manual) 0 Blast Cells % (Manual) 0 Reactive Lymphocytes 0 Platelet Estimate [place] Large Platelets Few B-Type Natriuretic Peptide 82.32 0-100 pg/mL PATIENT: VITA CAST ACCT: [id number] UNIT: [id number] : 1965 LOC: ER ROOM / BED: / AGE / SEX: 59 / M ADM STATUS: REG ER SERVICE 1522 ORDERING PHYSICIAN: EZRA TALAMANTES DO PROCEDURE(s): ABPL - CT AB PEL WO CON-NO ORAL OR IV REASON: epig pain ORDER NUMBER(s): [id number], ACCESSION NUMBER(s): [id number] Procedure: CT CT AB PEL WO CON-NO ORAL OR IV 04/26/2024 04:14 PM Indication: epig pain Comparison Study: None Technique: Axial images were obtained and reformatted in coronal and sagittal planes. All CT scans at this medical facility are performed using dose modulation techniques as appropriate to a performed exam including the following: Automated exposure control was utilized; adjustment of the MA and/or KV according to patient size; and use of iterative reconstruction technique. CT Dose: CTDI volume is 23.35 mGy. Dose-length product is 1238.27 mGy*cm FINDINGS: Lower Chest: Bibasilar subsegmental atelectasis is noted. Hepatobiliary: Unremarkable. Spleen: Unremarkable. Pancreas: Unremarkable. Adrenal Glands: Unremarkable. tract: The kidneys are normal in size bilaterally without hydronephrosis or nephrolithiasis. The urinary bladder is unremarkable. GI tract: The stomach is moderately fluid distended. Small bowel is normal in caliber. Large bowel is moderately fluid distended. Moderate fecal material noted throughout the large bowel. The appendix is mildly dilated measuring 0.7 cm in caliber with mild mural thickening and adjacent fat stranding. Lymphatics: No mesenteric, retroperitoneal or periportal lymphadenopathy. Vasculature: The abdominal aorta is normal in in caliber. Pelvic Organs: Unremarkable Bones/soft tissues: Severe chronic appearing anterior compression deformity of T12 with 3 mm retropulsion. There is moderate central compression deformity of L1 with approximately 50% loss of height central bone loss without significant retropulsion. Advanced multilevel degenerative disc disease posterior facet arthropathy noted. Levoscoliosis of the lumbar spine. Sacroiliac joints are intact. Other: None. IMPRESSION: 1. The stomach is moderately fluid distended. Suggest decompression by placement of an enteric tube. 2. Moderate fluid and fecal distention of the large bowel with loss of haustration without Mural thickening. 3. Borderline dilated appendix measuring 0.7 cm in caliber with mild mural thickening and adjacent fat stranding without an appendicolith. Developing appendicitis can not be ruled out. Recommend clinical and biochemical correlation. ORDERING PHYSICIAN: EZRA TALAMANTES DO PROCEDURE(s): CXRP - CHEST PORTABLE REASON: epig pain ORDER NUMBER(s): [id number], ACCESSION NUMBER(s): [id number] CHEST RADIOGRAPH Indication: epig pain Technique: Single frontal view of the chest was obtained Comparison: CXRP on DOS: 01/29/22, CHEST PORTABLE on DOS: 01/29/22 FINDINGS: Lines and Tubes: None Lungs: Bilateral perihilar infiltrates and lower lobe airspace disease findings may represent bronchitis. No pneumothorax. Cardiomediastinal contours: Unremarkable Bones: No acute osseous abnormality. IMPRESSION: 1. Bilateral perihilar infiltrates and bibasilar airspace disease and atelectasis. Correlate for possible bronchitis Assessment/Plan Assessment/Plan Sepsis, unspecified organisms Abdominal pain Septic shock Hyperglycemia Coagulopathy Electrolyte imbalance Elevated liver enzymes Bilateral pneumonia Generalized weakness Plan 1. Admit to intensive care unit 2. Breathing treatment 3. Pain control management 4. IV antibiotic management 5. Management of fluids and electrolytes 6. Consultation for cardiology 7. Diagnostic test chest x-ray 8. DVT prophylaxis on SCDs 9. Repeat labs CBC, CMP in a.m. 10. Home medication reviewed and reconciled 11. Continue with current medical management 12. Treatment plan discussed with patient and RN. Patient verbalized unde rstanding. Plan discussed with: Patient, Other (RN) My Orders Orders - JOSEPH NUR DNP Procedure Category Date Status Time Piperacillin-Tazob PHA 04/26/24 In Process 3.375gm (Zosyn 3.375g 22:00 Sodium Chloride 0.9% PHA 04/26/24 In Process 19:15 Lactic Acid W/ Reflex LAB 04/26/24 Logged Order 22:00 Ibuprofen Tablet PHA 04/26/24 In Process (Motrin Tablet) 19:15 Albuterol Medneb PHA 04/26/24 In Process (Ventolin Medneb) 19:15 Ipratropium Medneb PHA 04/26/24 In Process (Atrovent Medneb) 19:15 * Cardiology Consult CONS 04/26/24 Transmitted 19:08 Famotidine Injection PHA 04/27/24 In Process (Pepcid Injection) 10:00 Allergies MONICA 04/26/24 In Process 19:08 Code Status CODE 04/26/24 Transmitted 19:08 Oxygen Per Hour RT 04/26/24 Transmitted 19:08 Hydrocodone-Acet PHA 04/26/24 In Process 5/325mg Tab ([place] 19:15 Ondansetron Hcl PHA 04/26/24 In Process (Zofran) 19:15 Docusate Sodium PHA 04/26/24 In Process Capsule (Colace 19:15 Complete Blood Count LAB 04/27/24 Verified 04:00 Comprehensive LAB 04/27/24 Verified Metabolic Panel 04:00 Condition: Serious MONICA 04/26/24 In Process 19:08 Clear Liq Diet DIET 04/27/24 Transmitted Breakfast Bedrest With Bathroom MONICA 04/26/24 In Process Privileg 19:08 Sequential MONICA 04/26/24 In Process Compression Device Heparin Sodium PHA 04/26/24 In Process (Porcine) 22:00 Problem List: (1) Sepsis, unspecified organism (2) Coagulopathy (3) Bilateral pneumonia (4) Abdominal pain (5) Septic shock (6) Elevated liver enzymes (7) Hyperglycemia (8) Generalized weakness (9) Electrolyte imbalance Date of Service: Apr 26, 2024 Billing Provider: JOSEPH NUR DNP Common Visit Codes: [id number] INP/OBS CARE (HIGH) JOSEPH NUR DNP Apr 26, 2024 20:55
[2024-04-26] MEDS ORDERED: NITROGLYCERIN 0.4 MG SL TAB SL PRN (21:00)
--- NOTE | 2024-04-26 21:13 | DVHINCON2 ---
DATE OF CONSULTATION: 04/26/2024 HISTORY OF PRESENT ILLNESS: This patient is 59 years old, coming in with anxiety, depression, abdominal pain, constipation, now having loose bowel activity, some nausea, no vomiting. No hematemesis, melena. No bleeding per rectum. He is hemodynamically labile with hypertension, on vasopressor. PAST MEDICAL HISTORY: CHF, COPD, nasal cannula at home. PAST SURGICAL HISTORY: Ankle surgery. Nothing significant in the abdomen. PHYSICAL EXAMINATION: VITAL SIGNS: Currently, he is afebrile with hemodynamic instability and was on Levophed. He is very severely dehydrated and mildly pale. No cyanosis or jaundice. NECK: Supple, nontender with no thyromegaly, lymphadenopathy. CHEST AND LUNGS: Clear. HEART: Within normal limits. ABDOMEN: Soft, minimally distended, nontender. Minimally tender in the mid abdomen, but no rebound. EXTREMITIES: Showing some ecchymosis or bruising from a previous fall 2-3 days ago and he denies any blood thinners on board. CLINICAL IMPRESSION: On CT scan, he is suggesting a possibility of appendicitis, but no free air, so my clinical impression is ongoing resolving constipation and with a possibility of acute appendicitis and his white cell count is very highly elevated along with lactic acid and he is severely dehydrated. PLAN: The plan would be to resuscitate him and keep him n.p.o., IV hydration, IV antibiotics and then reevaluate him of possible surgery based upon ongoing evaluation. MD JANNETH Lynch/ALFONSO TID: [id number] RECEIPT: [id number] cc: EZRA TALAMANTES
[2024-04-26] MEDS ORDERED: HEPARIN SODIUM (PORCINE) 5000 UNITS/ML 1ML VIAL SC SCH (22:00)
[2024-04-26 22:39] VITALS: BP 108/67; PULSE 91; RESP 12; RESP 18; TEMP 97.8; O2SAT 92; O2SAT 94
[2024-04-26 23:00] VITALS: BP 101/77; PULSE 87; RESP 11; O2SAT 93
[2024-04-26] MEDS: PHYTONADIONE (VIT K)10 MG/ML 1ML VIAL SUBCUT ONE (23:00)
--- NOTE | 2024-04-26 23:03 | DVH ---
CHEST RADIOGRAPH Indication: S/P NG TUBE Technique: Single frontal view of the chest was obtained Comparison: XY CHEST PORTABLE on DOS: 04/26/24, CXRP on DOS: 01/29/22, CHEST PORTABLE on DOS: 01/29/22 FINDINGS: Lines and Tubes: Enteric tube below the left diaphragm in the stomach Lungs: No focal consolidation. Pleura: No effusion. No pneumothorax. Cardiomediastinal contours: Unremarkable Bones: No acute osseous abnormality. IMPRESSION: 1. Enteric tube below the left diaphragm in the stomach.
[2024-04-26 23:15] VITALS: BP 96/62; PULSE 87; RESP 13; O2SAT 93
[2024-04-26 23:30] VITALS: BP 96/62; PULSE 87; RESP 15; O2SAT 93
[2024-04-26] MEDS: PIPERACILLIN-TAZOB 3.375GM 100 ML IV SCH (23:36)
[2024-04-26 23:45] VITALS: BP 125/83; PULSE 90; RESP 12; O2SAT 95
[2024-04-26 23:57] LABS: INR 1.36 (0.9-1.15); Partial Thromboplastin Time 52.4 SEC (24.5-34.5)
[2024-04-27] VITALS (81 sets, daily range): BP systolic 77–135; BP diastolic 33–91; PULSE 74–103; RESP 8–21; TEMP 97.3–98.2; O2SAT 88–97
[2024-04-27] MEDS: HYDROcodone-ACET 5/325MG TAB PO PRN (03:31)
[2024-04-27 03:46] LABS: Lactic Acid w/Reflex 2.4 mmol/L (0.4-2.0)
[2024-04-27 04:21] LABS: Hematocrit 53.1 % (41.0-53.0)
[2024-04-27 04:27] LABS: Anion Gap 12 (5-15); BUN/Creatinine Ratio 17.9 (10.0-20.0); Chloride 100 mmol/L (98-107); Total Protein 6.3 g/dL (5.7-8.2)
[2024-04-27 04:30] LABS: Hemoglobin 18.1 g/dL (13.5-17.5); Mean Corpuscular Hemoglobin 32.6 pg (28.0-32.0); Mean Corpuscular Hgb Conc. 34.1 g/dL (32.0-36.0); Mean Corpuscular Volume 95.7 fL (80.0-100.0); Platelet Count (auto) 316 10^3/uL (140-450); Red Blood Cells 5.55 10^6/uL (4.5-5.90); Red Cell Distribution Width 13.6 % (11.8-14.3); White Blood Cell 23.9 10^3/uL (4.4-10.8)
[2024-04-27 04:43] LABS: Basophils % (manual) 0 (0.0-2.0); Blast Cells 0; Eosinophils % (manual) 0 (0-7); Metamyelocytes % 0; Myelocytes % 0; Promyelocytes % 0; Reactive Lymphocytes 0
[2024-04-27 04:47] LABS: Alkaline Phosphatase 127 U/L (46-116); Aspartate Aminotransferase 103 U/L (13-40); Blood Urea Nitrogen 31 mg/dL (9-23); Carbon Dioxide 16 mmol/L (20-31); Glucose 281 mg/dL (74-106); Sodium 128 mmol/L (136-145)
[2024-04-27 04:48] LABS: Alanine Aminotransferase 48 U/L (7-40); Bilirubin, Total 0.3 mg/dL (0.2-1.0)
[2024-04-27 04:49] LABS: Potassium 5.7 mmol/L (3.5-5.1)
[2024-04-27] MEDS: InsuLIN REG 1unit/0.01ml Soln (100units/ml) IV ONE (05:30)
[2024-04-27 05:56] LABS: Band Neutrophils % (manual) 11; Lymphocytes % (manual) 3 (10.0-50.0); Monocytes % (manual) 10 (0-12); Platelet Estimate Adequate
[2024-04-27] MEDS: IBUPROFEN 600 MG TAB PO PRN (05:57)
[2024-04-27] MEDS: DEXTROSE (50%) 50ML SYRG IV ONE (06:20)
[2024-04-27] MEDS: SODIUM BICARB 8.4% 50Meq/50ml SYR INJ IV ONE (06:30)
[2024-04-27] MEDS: SODIUM ZIRCONIUM CYCL 10 GM PAK PO ONE (06:30)
[2024-04-27] MEDS: CALCIUM GLUC 1,000mg/50ml-NS 50 ML IV ONE (06:32)
[2024-04-27] MEDS: ONDANSETRON HCL 4 MG/2 ML VIAL IV PRN (08:55)
[2024-04-27] MEDS: THIAMINE HCL 100 MG TAB PO SCH (10:00)
[2024-04-27] MEDS: FOLIC ACID 1 MG TAB PO SCH (10:00)
[2024-04-27] MEDS: MULTIPLE VITAMINS W/ MINERALS TAB PO SCH (10:00)
[2024-04-27] MEDS: FAMOTIDINE (10MG/ML) 2ML VL IV SCH (10:30)
[2024-04-27] MEDS: MORPHINE SULFATE INJ 2 MG/ml SYRG IV PRN ×2 (10:31→13:56)
[2024-04-27] MEDS: ONDANSETRON HCL 4 MG/2 ML VIAL IV ONE (10:51)
--- NOTE | 2024-04-27 10:51 | DVHPN2 ---
Progress Note Date Seen: Apr 27, 2024 Medical Necessity Reason Pt with a Central, PICC or Fol: No Objective vital signs Vital Sign Date Time Temp Pulse Resp B/P (MAP) Pulse Ox O2 Delivery O2 Flow Rate FiO2 04/27/24 10:31 97 20 81/51 04/27/24 08:00 89 Nasal Cannula* 5 40 04/27/24 05:57 98.2 Total Intake and Output 04/26/24 04/26/24 04/27/24 14:59 22:59 06:59 Intake Total 2204.5 ml 1430.00 ml Output Total 2700 ml Balance 2204.5 ml -1270.00 ml medications Current Medications Medications Dose Ordered Sig/Clarence Route Start Time Stop Time Status Last Admin Dose Admin Norepinephrine Bitartrate 250 ml @ 3.75 mls/hr Q24H IV 04/26/24 17:45 04/26/24 18:15 3.75 MLS/HR Piperacillin Sod/ Tazobactam Sod 100 ml @ 25 mls/hr Q8HR IV 04/26/24 22:00 04/27/24 05:52 25 MLS/HR Sodium Chloride 1,000 ml @ 100 mls/hr Q10H IV 04/26/24 19:15 04/27/24 05:06 100 MLS/HR Ibuprofen 600 mg Q8HP PRN PO 04/26/24 19:15 04/27/24 05:57 600 MG Albuterol 2.5 mg Q4HPRN PRN NEB 04/26/24 19:15 Ipratropium [place] 0.5 mg Q4HPRN PRN NEB 04/26/24 19:15 Famotidine 20 mg DAILY IV 04/27/24 10:00 04/27/24 10:30 20 MG Ondansetron HCl 4 mg Q4HP PRN IV 04/26/24 19:15 04/27/24 08:55 4 MG Docusate Sodium 100 mg BIDPRN PRN PO 04/26/24 19:15 Nitroglycerin 0.4 mg Q5MINP PRN SL 04/26/24 21:00 Morphine Sulfate 2 mg Q30M PRN IV 04/26/24 21:00 04/27/24 10:31 2 MG Thiamine HCl 100 mg DAILY PO 04/27/24 10:00 Folic Acid 1 mg DAILY PO 04/27/24 10:00 Multivitamins/ Minerals 1 tab DAILY PO 04/27/24 10:00 Morphine Sulfate 2 mg Q6HPRN PRN IV 04/27/24 10:30 laboratory and microbiology Laboratory Tests 04/27/24 03:39 Test 04/27/24 10:34 Range/Units Serum Glucose Pending Problem List/Assessment/Plan Problem List/Assessment/Plan AFEBRILE HEMODYNAMICALLY LABILE ON VASOPRESSOR NO ADEQUATE RESUSCITATION NO INCREASING ABD PAIN BM + FLATUS NONE TODAY WBC TRENDING DOWN LACTATE ELEVATED TRENDING DOWN ABD SOFT LESS TENDER MORE IN THE LLQ HIGH RISK FOR SURGERY ONGOING RESUSCITATION N SALINE BOLUS X 2 ORDERED NPO NG TO LCS PT PULLED OUT NG TUBE CONTINUE CLOSE OBSERVATION CONSIDER EMERGENT SURGERY BASED ON ONGOING EVAL AND RESUSCITATION NURSE AT BEDSIDE Plan discussed with: Patient My Orders My Orders Orders - SENTHIL DIAZ MD Procedure Category Date Status Time Order Routine Aptt [facility] 04/26/24 In Process 18:56 SENTHIL DIAZ MD Apr 27, 2024 10:51
[2024-04-27 10:55] LABS: Chloride 102 mmol/L (98-107); Potassium 4.9 mmol/L (3.5-5.1)
[2024-04-27 10:56] LABS: Anion Gap 6 (5-15)
[2024-04-27 10:58] LABS: Calcium 8.7 mg/dL (8.7-10.4); Carbon Dioxide 19 mmol/L (20-31); Sodium 127 mmol/L (136-145)
[2024-04-27] MEDS: SODIUM CHLORIDE 0.9% 2,000 ML IV ONE (11:00)
[2024-04-27 11:01] LABS: BUN/Creatinine Ratio 21.5 (10.0-20.0)
[2024-04-27 11:02] LABS: Blood Urea Nitrogen 35 mg/dL (9-23); Glucose 276 mg/dL (74-106)
[2024-04-27] MEDS ORDERED: D5W/SOD CHL 0.45% 1,000 ML IV SCH (12:00)
--- NOTE | 2024-04-27 12:04 | DVH ---
XY CHEST XRAY 1 VIEW, HISTORY: ADVANCED NGT PLACEMENT COMPARISON: XY CHEST PORTABLE on DOS: 04/26/24, XY CHEST PORTABLE on DOS: 04/26/24, CXRP on DOS: 01/29/22 XY CHEST PORTABLE on DOS: 04/26/24, XY CHEST PORTABLE on DOS: 04/26/24, CXRP on DOS: 01/29/22 TECHNICAL DATA: 1 view of the chest was obtained. FINDINGS: Lines and tubes: An NG tube is partially visualized crossing midline. Cardiomediastinal silhouette: normal Pulmonary vasculature: normal Lung expansion: normal Lung airspace: normal Lung interstitium: normal Pleura: normal Pneumothorax: no Bones: Unremarkable Other: no IMPRESSION: Similar lung aeration. An NG tube is partially visualized crossing midline.
[2024-04-27] MEDS ORDERED: SODIUM CHLORIDE 0.9% 1,000 ML IV SCH (16:15)
[2024-04-27] MEDS: D5W/SOD CHL 0.45% 1,000 ML IV SCH (16:30)
--- NOTE | 2024-04-27 17:12 | DVH ---
Date: 04/27/2024 04:49 PM Examination: XY KUB ABDOMEN SINGLE VIEW History: DRS REQUEST Comparison: None TECHNIQUE: Frontal views of the abdomen was obtained. FINDINGS: Small bowel is distended with gas. Multiple loops are visualized. Findings may represent small-bowel obstruction. The lung bases are unremarkable. No acute osseous abnormality identified. IMPRESSION: 1. Questionable small bowel obstruction
[2024-04-27] MEDS: LORazepam 0.5 MG TAB PO PRN (19:10)
--- NOTE | 2024-04-27 19:54 | DVHPN2 ---
Subjective in bed resting Changes from previous H/P or p: No Changes Eyes: No Pain, No Vision change, No Conjunctivae inflammation, No Eyelid inflammation, No Other, No Redness ENT: No Ear pain, No Ear discharge, No Nose pain, No Nose discharge, No Nose congestion, No Mouth pain, No Mouth swelling, No Throat pain, No Throat swelling, No Other Cardiovascular: No Chest Pain, No Palpitations, No Orthopnea, No Paroxysmal Noc. Dyspnea, No Edema, No Lt Headedness; Other (Hypotension) Respiratory: No Cough, No Dry, No Shortness of breath, No SOB with excertion, No Wheezing, No Hemoptysis, No Pleuritic Pain, No Sputum, No Other Gastrointestinal: No Nausea, No Vomiting; Abdominal Pain; No Diarrhea, No Constipation, No Melena, No Hematochezia, No Other Genitourinary: No Dysuria, No Frequency, No Incontinence, No Hematuria, No Retention, No Other Musculoskeletal: No other, No neck pain, No shoulder pain, No arm pain, No back pain, No hand pain, No leg pain, No foot pain Skin: No Rash, No Lesions, No Jaundice; Bruising (Skin); No Other Objective Vitals Vital Signs Date Time Temp Pulse Resp B/P (MAP) Pulse Ox O2 Delivery O2 Flow Rate FiO2 04/27/24 18:30 90 14 103/67 (79) 04/27/24 18:15 94 04/27/24 18:00 Nasal Cannula* 5 40 04/27/24 16:15 98.0 98.0 Intake/Output Intake and Output 04/27/24 07:00 Intake Total 3638.25 ml Output Total 2700 ml Balance 938.25 ml Intake Oral 600 ml IV Total 3038.25 ml Output Urine Total 0 ml Gastric Drainage Total 2700 ml # Bowel Movements 13 General Appearance: Alert, Oriented X3 Cardiovascular: Regular rate, Normal S1, Normal S2 Abdomen: Other (distended) Medications Current Medications Medications Dose Ordered Sig/Clarence Route Start Time Stop Time Status Last Admin Dose Admin Norepinephrine Bitartrate 250 ml @ 3.75 mls/hr Q24H IV 04/26/24 17:45 04/26/24 18:15 3.75 MLS/HR Piperacillin Sod/ Tazobactam Sod 100 ml @ 25 mls/hr Q8HR IV 04/26/24 22:00 04/27/24 13:13 25 MLS/HR Ibuprofen 600 mg Q8HP PRN PO 04/26/24 19:15 04/27/24 05:57 600 MG Albuterol 2.5 mg Q4HPRN PRN NEB 04/26/24 19:15 Ipratropium [place] 0.5 mg Q4HPRN PRN NEB 04/26/24 19:15 Famotidine 20 mg DAILY IV 04/27/24 10:00 04/27/24 10:30 20 MG Ondansetron HCl 4 mg Q4HP PRN IV 04/26/24 19:15 04/27/24 14:01 4 MG Docusate Sodium 100 mg BIDPRN PRN PO 04/26/24 19:15 Nitroglycerin 0.4 mg Q5MINP PRN SL 04/26/24 21:00 Morphine Sulfate 2 mg Q30M PRN IV 04/26/24 21:00 04/27/24 10:31 2 MG Thiamine HCl 100 mg DAILY PO 04/27/24 10:00 Folic Acid 1 mg DAILY PO 04/27/24 10:00 Multivitamins/ Minerals 1 tab DAILY PO 04/27/24 10:00 Morphine Sulfate 2 mg Q6HPRN PRN IV 04/27/24 10:30 04/27/24 13:56 2 MG Dextrose/Sodium Chloride 1,000 ml @ 75 mls/hr [id number] IV 04/27/24 16:30 04/27/24 16:30 75 MLS/HR Lorazepam 0.5 mg Q12HP PRN PO 04/27/24 17:30 Laboratory Results Laboratory Tests 04/27/24 03:39 04/27/24 10:34 Chemistry Test 04/27/24 03:39 04/27/24 10:34 Albumin 4.0 g/dL (3.2-4.8) Calcium Level 9.0 mg/dL (8.7-10.4) 8.7 mg/dL (8.7-10.4) Total Protein 6.3 g/dL (5.7-8.2) Coagulation Test 04/26/24 23:23 Prothrombin Time 14.0 sec (9.3-11.8) H Prothrombin Time INR 1.36 (0.9-1.15) H Activated Partial Thromboplast Time 52.4 SEC (24.5-34.5) H LFT Test 04/27/24 03:39 Alanine Aminotransferase (ALT) 48 U/L (7-40) H Alkaline Phosphatase 127 U/L (46-116) H Aspartate Amino Transferase (AST) 103 U/L (13-40) H Total Bilirubin 0.3 mg/dL (0.2-1.0) Microbiology Microbiology Date/Time Source Procedure Growth Status 04/27/24 00:42 Nose MRSA Screen - Final Complete 04/26/24 17:29 Blood Blood Culture - Preliminary NO GROWTH AFTER 24 HOURS OF INCUBATION. Resulted Assessment/Plan Assessment/Plan Sepsis, unspecified organisms Abdominal pain Septic shock Hyperglycemia Coagulopathy Electrolyte imbalance Elevated liver enzymes Bilateral pneumonia Generalized weakness Hyponatremia Wean on levophed continue NGT IV abx with zosyn surgery consult dextrose 1/2 NS critical care time was 59 minutes Plan discussed with: Patient My Orders Orders - JOSUE HARDEN MD Procedure Category Date Status Time D5w/Sod Chl 0.45% PHA 04/27/24 In Process (D5w 1/2ns) 16:30 Lorazepam Tablet PHA 04/27/24 In Process (Ativan Tablet) 17:30 Transfer Orders XFER 04/27/24 Transmitted 18:24 Date of Service: Apr 27, 2024 Billing Provider: JOSUE HARDEN MD Common Visit Codes: [id number] CARE 30-74 MIN JOSUE HARDEN MD Apr 27, 2024 19:54
[2024-04-28] VITALS (12 sets, daily range): BP systolic 99–129; BP diastolic 48–94; PULSE 87–116; RESP 18–20; TEMP 97.2–98.6; O2SAT 95–99
--- NOTE | 2024-04-28 01:12 | DVH ---
CHEST RADIOGRAPH Indication: NGT verification Technique: Single frontal view of the chest was obtained COMPARISON: XY CHEST XRAY 1 VIEW on DOS: 04/27/24, XY CHEST PORTABLE on DOS: 04/26/24, XY CHEST PORTABLE on DOS: 04/26/24, CXRP on DOS: 01/29/22, CHEST PORTABLE on DOS: 01/29/22 FINDINGS: Lines and Tubes: Enteric catheter extends to the abdomen with the tip overlying the left upper quadra nt. Lungs: Clear Pleura: No effusion. No pneumothorax. Cardiomediastinal contours: Unremarkable Bones: Unremarkable IMPRESSION: 1. Clear lungs. 2. Enteric catheter in place as described.
[2024-04-28 06:42] LABS: Hematocrit 41.1 % (41.0-53.0); Hemoglobin 14.3 g/dL (13.5-17.5)
[2024-04-28 06:48] LABS: Anion Gap 6 (5-15); Carbon Dioxide 24 mmol/L (20-31); Chloride 105 mmol/L (98-107); Potassium 4.5 mmol/L (3.5-5.1)
[2024-04-28 06:49] LABS: Calcium 9.2 mg/dL (8.7-10.4)
[2024-04-28 06:53] LABS: Sodium 135 mmol/L (136-145)
[2024-04-28 06:55] LABS: BUN/Creatinine Ratio 21.8 (10.0-20.0); Blood Urea Nitrogen 19 mg/dL (9-23)
[2024-04-28 07:02] LABS: Glucose 219 mg/dL (74-106)
[2024-04-28] MEDS: PANTOPRAZOLE 40 MG/10 ML VIAL INJ IV SCH (09:22)
--- NOTE | 2024-04-28 13:16 | DVHPN2 ---
Subjective Reporting multiple BMs. Improvement with abdominal pain. Reviewed: Care Plan, H&P, Labs, Medications, Previous Orders Changes from previous H/P or p: No Changes General: Per HPI Eyes: No Pain, No Vision change, No Conjunctivae inflammation, No Eyelid inflammation, No Other, No Redness ENT: No Ear pain, No Ear discharge, No Nose pain, No Nose discharge, No Nose congestion, No Mouth pain, No Mouth swelling, No Throat pain, No Throat swelling, No Other Cardiovascular: No Chest Pain, No Palpitations, No Orthopnea, No Paroxysmal Noc. Dyspnea, No Edema, No Lt Headedness; Other (Hypotension) Respiratory: No Cough, No Dry, No Shortness of breath, No SOB with excertion, No Wheezing, No Hemoptysis, No Pleuritic Pain, No Sputum, No Other Gastrointestinal: No Nausea, No Vomiting; Abdominal Pain; No Diarrhea, No Constipation, No Melena, No Hematochezia, No Other Genitourinary: No Dysuria, No Frequency, No Incontinence, No Hematuria, No Retention, No Other Musculoskeletal: No other, No neck pain, No shoulder pain, No arm pain, No back pain, No hand pain, No leg pain, No foot pain Skin: No Rash, No Lesions, No Jaundice; Bruising (Skin); No Other Objective Vitals Vital Signs Date Time Temp Pulse Resp B/P (MAP) Pulse Ox O2 Delivery O2 Flow Rate FiO2 04/28/24 10:10 96 Nasal Cannula 3.0 04/28/24 10:10 32 04/28/24 08:30 97.2 105 19 119/77 (91) 97.2 Intake/Output Intake and Output 04/28/24 07:00 Intake Total 2515.00 ml Output Total 2405 ml Balance 110.00 ml IV Total 2515.00 ml Output Urine Total 1755 ml Gastric Drainage Total 650 ml # Voids 1 # Bowel Movements 10 General Appearance: Alert, Oriented X3, Cooperative, No acute distress HEENT: Atraumatic Lungs: Clear to auscultation, Normal air movement Cardiovascular: Regular rate, Normal S1, Normal S2 Abdomen: Normal bowel sounds, Soft, No tenderness, Other Genitourinary: No Apparent Abnormalities Skin: Dry, Intact, Other (Ecchymosis to left buttock and thigh) Psych/Mental Status: Mental status NL, Mood NL Medications Current Medications Medications Dose Ordered Sig/Clarence Route Start Time Stop Time Status Last Admin Dose Admin Piperacillin Sod/ Tazobactam Sod 100 ml @ 25 mls/hr Q8HR IV 04/26/24 22:00 04/28/24 07:03 25 MLS/HR Ibuprofen 600 mg Q8HP PRN PO 04/26/24 19:15 04/27/24 05:57 600 MG Albuterol 2.5 mg Q4HPRN PRN NEB 04/26/24 19:15 Ipratropium [place] 0.5 mg Q4HPRN PRN NEB 04/26/24 19:15 Famotidine 20 mg DAILY IV 04/27/24 10:00 04/28/24 09:22 20 MG Ondansetron HCl 4 mg Q4HP PRN IV 04/26/24 19:15 04/27/24 14:01 4 MG Docusate Sodium 100 mg BIDPRN PRN PO 04/26/24 19:15 Nitroglycerin 0.4 mg Q5MINP PRN SL 04/26/24 21:00 Morphine Sulfate 2 mg Q30M PRN IV 04/26/24 21:00 04/27/24 10:31 2 MG Thiamine HCl 100 mg DAILY PO 04/27/24 10:00 Folic Acid 1 mg DAILY PO 04/27/24 10:00 Multivitamins/ Minerals 1 tab DAILY PO 04/27/24 10:00 Morphine Sulfate 2 mg Q6HPRN PRN IV 04/27/24 10:30 04/28/24 01:22 2 MG Dextrose/Sodium Chloride 1,000 ml @ 75 mls/hr [id number] IV 04/27/24 16:30 04/27/24 16:30 75 MLS/HR Lorazepam 0.5 mg Q12HP PRN PO 04/27/24 17:30 04/27/24 19:10 0.5 MG Pantoprazole Sodium 40 mg DAILY IV 04/28/24 10:00 04/28/24 09:22 40 MG Laboratory Results Laboratory Tests 04/27/24 03:39 04/28/24 05:38 Chemistry Test 04/28/24 05:38 Calcium Level 9.2 mg/dL (8.7-10.4) Microbiology Microbiology Date/Time Source Procedure Growth Status 04/27/24 00:42 Nose MRSA Screen - Final Complete 04/26/24 17:29 Blood Blood Culture - Preliminary NO GROWTH AFTER 24 HOURS OF INCUBATION. Resulted Labs and/or images reviewed: Labs reviewed by me, Image(s) reviewed by me Assessment/Plan Assessment/Plan Impression: -probable small bowel obstruction -sepsis probably secondary to enteritis/colitis -acute kidney injury, vasomotor nephropathy -hyperkalemia -schizophrenia -primary hypertension -septic shock, resolved Plan: -patient was pulled out his NG to multiple times. Now with persistent BMs. -repeat KUB -continue antibiotic therapy with Zosyn -continue IV hydration -UDS -consider starting oral intake if KUB shows resolution of SBO -repeat labs in a.m. Total time spent with patient discussing and formulating plan of care: 35 minutes. This medical document was created using an electronic medical record system with [employer] dictation system. Although this document has been carefully reviewed, there may still be some phonetic and typographical errors. These areas are purely typographical due to imperfections of the software programs, and do not reflect any compromise in the patient's medical care. Plan discussed with: Patient, Other (RN) My Orders Orders - KARSTEN CAST NP Procedure Category Date Status Time Complete Blood Count LAB 04/29/24 Verified 04:00 Comprehensive LAB 04/29/24 Verified Metabolic Panel 04:00 Drug Screen LAB 04/28/24 Logged 13:00 Date of Service: Apr 28, 2024 Billing Provider: KARSTEN CAST NP Common Visit Codes: [id number] INP/OBS CARE(HIGH) KARSTEN CAST NP Apr 28, 2024 13:16
--- NOTE | 2024-04-28 13:21 | DVHPN2 ---
Progress Note - Dictate Date Seen: Apr 27, 2024 Medical Necessity Reason Pt with a Central, PICC or Fol: No Subjective PT WITH ABD PAIN ABD DISTENSION STOOL IMPACTION HYPOTENSION LEUKOCYTOSIS WITH LEFT SHIFT LEUKOCYTOSIS PROFILE IMPROVING NOW PT WITH BOWEL EMPTYING SX ARE IMPROVING HX OF CAD EF45% COPD/ ON HOME O2 TOBACCO USE ETOH USE HX OF GASTROPARESIS PAD Right lower extremity angiography revealed: * Right common iliac without any flow restrictive lesion. * Right external and internal iliac without any flow restrictive lesion. * Right common femoral without any flow restrictive lesion. * Right profunda and superficial femoral artery without any flow restrictive lesion. * Right popliteal, tibioperoneal trunk, anterior tibial, posterior tibial and the peroneal arteries were all patent all the way down to the ankle. Left lower extremity angiography revealed: * Left common iliac without any flow restrictive lesion. * Left common external and internal iliacs without any flow restrictive lesion. * Left common femoral without any flow restrictive lesion. * Left profunda and superficial femoral artery without any flow restrictive lesion. * Left popliteal, tibioperoneal trunk, posterior tibial and the peroneal arteries without any flow restrictive lesion. * Anterior tibial, however, is occluded at the level of the ankle. Unable to revascularize because of collateral circulation both from the posterior tibial and peroneal arteries. Furthermore, because of the heart rate that he has, I believe that is what compromises his circulation. At this time, the patient is having adequate supply to the ankle. There is no indication for revascularization of the anterior tibial at this time, especially with collateral circulation. Conservative medical management will be implemented. NATACHA/ WITH MULTIPLE ANKLE SURGERIES DEPRESSION HTN vital signs Vital Sign Date Time Temp Pulse Resp B/P (MAP) Pulse Ox O2 Delivery O2 Flow Rate FiO2 04/28/24 10:10 96 Nasal Cannula 3.0 04/28/24 10:10 32 04/28/24 08:30 97.2 105 19 119/77 (91) 97.2 Total Intake and Output 04/27/24 04/27/24 04/28/24 15:00 23:00 07:00 Intake Total 2115.00 ml 300 ml 100 ml Output Total 1100 ml 1305 ml Balance 2115.00 ml -800 ml -1205 ml medications Current Medications Medications Dose Ordered Sig/Clarence Route Start Time Stop Time Status Last Admin Dose Admin Norepinephrine Bitartrate 250 ml @ 3.75 mls/hr Q24H IV 04/26/24 17:45 04/26/24 18:15 3.75 MLS/HR Piperacillin Sod/ Tazobactam Sod 100 ml @ 25 mls/hr Q8HR IV 04/26/24 22:00 04/28/24 07:03 25 MLS/HR Ibuprofen 600 mg Q8HP PRN PO 04/26/24 19:15 04/27/24 05:57 600 MG Albuterol 2.5 mg Q4HPRN PRN NEB 04/26/24 19:15 Ipratropium [place] 0.5 mg Q4HPRN PRN NEB 04/26/24 19:15 Famotidine 20 mg DAILY IV 04/27/24 10:00 04/28/24 09:22 20 MG Ondansetron HCl 4 mg Q4HP PRN IV 04/26/24 19:15 04/27/24 14:01 4 MG Docusate Sodium 100 mg BIDPRN PRN PO 04/26/24 19:15 Nitroglycerin 0.4 mg Q5MINP PRN SL 04/26/24 21:00 Morphine Sulfate 2 mg Q30M PRN IV 04/26/24 21:00 04/27/24 10:31 2 MG Thiamine HCl 100 mg DAILY PO 04/27/24 10:00 Folic Acid 1 mg DAILY PO 04/27/24 10:00 Multivitamins/ Minerals 1 tab DAILY PO 04/27/24 10:00 Morphine Sulfate 2 mg Q6HPRN PRN IV 04/27/24 10:30 04/28/24 01:22 2 MG Dextrose/Sodium Chloride 1,000 ml @ 75 mls/hr [id number] IV 04/27/24 16:30 04/27/24 16:30 75 MLS/HR Lorazepam 0.5 mg Q12HP PRN PO 04/27/24 17:30 04/27/24 19:10 0.5 MG Pantoprazole Sodium 40 mg DAILY IV 04/28/24 10:00 04/28/24 09:22 40 MG laboratory and microbiology Laboratory Tests 04/28/24 05:38 04/27/24 03:39 Test 04/28/24 05:38 Range/Units Serum Glucose 219 H 74-106 mg/dL Problem List ABD PAIN ABD DISTENSION STOOL IMPACTION HYPOTENSION LEUKOCYTOSIS WITH LEFT SHIFT LEUKOCYTOSIS PROFILE IMPROVING NOW PT WITH BOWEL EMPTYING SX ARE IMPROVING HX OF CAD EF45% COPD/ ON HOME O2 TOBACCO USE ETOH USE HX OF GASTROPARESIS PAD Right lower extremity angiography revealed: * Right common iliac without any flow restrictive lesion. * Right external and internal iliac without any flow restrictive lesion. * Right common femoral without any flow restrictive lesion. * Right profunda and superficial femoral artery without any flow restrictive lesion. * Right popliteal, tibioperoneal trunk, anterior tibial, posterior tibial and the peroneal arteries were all patent all the way down to the ankle. Left lower extremity angiography revealed: * Left common iliac without any flow restrictive lesion. * Left common external and internal iliacs without any flow restrictive lesion. * Left common femoral without any flow restrictive lesion. * Left profunda and superficial femoral artery without any flow restrictive lesion. * Left popliteal, tibioperoneal trunk, posterior tibial and the peroneal arteries without any flow restrictive lesion. * Anterior tibial, however, is occluded at the level of the ankle. Unable to revascularize because of collateral circulation both from the posterior tibial and peroneal arteries. Furthermore, because of the heart rate that he has, I believe that is what compromises his circulation. At this time, the patient is having adequate supply to the ankle. There is no indication for revascularization of the anterior tibial at this time, especially with collateral circulation. Conservative medical management will be implemented. NATACHA/ WITH MULTIPLE ANKLE SURGERIES DEPRESSION HTN Assessment/Plan ABX IV FLUIDS CORRECT LYTES KUB Dietary Evaluation Review Comments: 1. Pt not to go >7 days of NPO/CL diet only -> Currently DAY 3 2. Monitor bowel function; noted +BM and flatus w/ bowel sounds 3. Suggest diet advancement as medically able to low-residue diet 4. If unable to advance diet or prolonged period of NPO expected, recommend TPN w/ 1680 ml total vol, 60 gm lipid, 100 gm AA, 350 gm D (provides 2190 kcal) + standard electrolytes; advance to goal per pharmacy discretion Expected Outcomes/Goals: Improved nutritional status, weight maintenance. Plan discussed with: Patient Critical Care Time(min): 35 ROBERT CHRISTENSEN MD Apr 28, 2024 13:21
--- NOTE | 2024-04-28 18:10 | DVHPN2 ---
Progress Note Date Seen: Apr 28, 2024 Medical Necessity Reason Pt with a Central, PICC or Fol: No Objective vital signs Vital Sign Date Time Temp Pulse Resp B/P (MAP) Pulse Ox O2 Delivery O2 Flow Rate FiO2 04/28/24 17:00 98.6 107 20 118/94 (102) 99 98.6 04/28/24 10:10 Nasal Cannula 3.0 04/28/24 10:10 32 Total Intake and Output 04/27/24 04/27/24 04/28/24 14:59 22:59 06:59 Intake Total 2118.75 ml 300 ml 100 ml Output Total 1100 ml 1305 ml Balance 2118.75 ml -800 ml -1205 ml medications Current Medications Medications Dose Ordered Sig/Clarence Route Start Time Stop Time Status Last Admin Dose Admin Piperacillin Sod/ Tazobactam Sod 100 ml @ 25 mls/hr Q8HR IV 04/26/24 22:00 04/28/24 14:24 25 MLS/HR Ibuprofen 600 mg Q8HP PRN PO 04/26/24 19:15 04/28/24 14:24 600 MG Albuterol 2.5 mg Q4HPRN PRN NEB 04/26/24 19:15 Ipratropium [place] 0.5 mg Q4HPRN PRN NEB 04/26/24 19:15 Famotidine 20 mg DAILY IV 04/27/24 10:00 04/28/24 09:22 20 MG Ondansetron HCl 4 mg Q4HP PRN IV 04/26/24 19:15 04/27/24 14:01 4 MG Docusate Sodium 100 mg BIDPRN PRN PO 04/26/24 19:15 Nitroglycerin 0.4 mg Q5MINP PRN SL 04/26/24 21:00 Morphine Sulfate 2 mg Q30M PRN IV 04/26/24 21:00 04/27/24 10:31 2 MG Thiamine HCl 100 mg DAILY PO 04/27/24 10:00 Folic Acid 1 mg DAILY PO 04/27/24 10:00 Multivitamins/ Minerals 1 tab DAILY PO 04/27/24 10:00 Morphine Sulfate 2 mg Q6HPRN PRN IV 04/27/24 10:30 04/28/24 01:22 2 MG Dextrose/Sodium Chloride 1,000 ml @ 75 mls/hr [id number] IV 04/27/24 16:30 04/27/24 16:30 75 MLS/HR Lorazepam 0.5 mg Q12HP PRN PO 04/27/24 17:30 04/27/24 19:10 0.5 MG Pantoprazole Sodium 40 mg DAILY IV 04/28/24 10:00 04/28/24 09:22 40 MG laboratory and microbiology Laboratory Tests 04/28/24 05:38 04/27/24 03:39 Test 04/28/24 05:38 Range/Units Serum Glucose 219 H 74-106 mg/dL Microbiology Date/Time Source Procedure Growth Status 04/27/24 00:42 Nose MRSA Screen - Final Complete 04/26/24 17:29 Blood Blood Culture - Preliminary NO GROWTH AFTER 48 HOURS OF INCUBATION. Resulted Problem List/Assessment/Plan Problem List/Assessment/Plan AFEBRILE VSS RESUSCITATION ONGOING NO INCREASING ABD PAIN BM + FLATUS + WBC TRENDING DOWN LACTATE ELEVATED TRENDING DOWN ABD SOFT LESS TENDER MORE IN THE LLQ HIGH RISK FOR SURGERY ONGOING RESUSCITATION PT PULLED OUT NG TUBE CONTINUE CLOSE OBSERVATION CONSIDER EMERGENT SURGERY BASED ON ONGOING EVAL AND RESUSCITATION NURSE AT BEDSIDE Plan discussed with: Patient Dietary Evaluation Review Comments: 1. Pt not to go >7 days of NPO/CL diet only -> Currently DAY 3 2. Monitor bowel function; noted +BM and flatus w/ bowel sounds 3. Suggest diet advancement as medically able to low-residue diet 4. If unable to advance diet or prolonged period of NPO expected, recommend TPN w/ 1680 ml total vol, 60 gm lipid, 100 gm AA, 350 gm D (provides 2190 kcal) + standard electrolytes; advance to goal per pharmacy discretion Expected Outcomes/Goals: Improved nutritional status, weight maintenance. SENTHIL DIAZ MD Apr 28, 2024 18:10
[2024-04-29] VITALS (9 sets, daily range): BP systolic 109–120; BP diastolic 53–79; PULSE 81–94; RESP 17–19; TEMP 98.1–98.6; O2SAT 93–98
[2024-04-29 06:45] LABS: Basophils # (auto) 0 10 ^3/uL (0-0.2); Eosinophils # (auto) 0 10 ^3/uL (0-0.8); Lymphocytes # (auto) 0.6 10 ^3/uL (0.4-5.4); Monocytes # (auto) 0.9 10 ^3/uL (0-1.3)
[2024-04-29 06:48] LABS: Basophils % (auto) 0.2 % (0.0-2.0); Eosinophils % (auto) 0.4 % (0.0-7.0); Hematocrit 36.9 % (41.0-53.0); Lymphocytes % (auto) 5.5 % (10.0-50.0); Mean Corpuscular Hemoglobin 33.3 pg (28.0-32.0); Mean Corpuscular Hgb Conc. 35.1 g/dL (32.0-36.0); Mean Corpuscular Volume 94.9 fL (80.0-100.0); Monocytes % (auto) 8.7 % (0.0-12.0); Neutrophils # (auto) 8.8 10 ^3/uL (1.6-8.6); Neutrophils % (auto) 85.2 % (37.0-80.0); Platelet Count (auto) 233 10^3/uL (140-450); Red Blood Cells 3.89 10^6/uL (4.5-5.90); Red Cell Distribution Width 13.2 % (11.8-14.3); White Blood Cell 10.4 10^3/uL (4.4-10.8)
[2024-04-29 06:50] LABS: Alanine Aminotransferase 31 U/L (7-40); Albumin 3.7 g/dL (3.2-4.8); Alkaline Phosphatase 91 U/L (46-116); Anion Gap 6 (5-15); BUN/Creatinine Ratio 12.7 (10.0-20.0); Calcium 9.3 mg/dL (8.7-10.4); Carbon Dioxide 27 mmol/L (20-31); Chloride 100 mmol/L (98-107); Potassium 4.3 mmol/L (3.5-5.1); Total Protein 5.9 g/dL (5.7-8.2)
[2024-04-29 06:51] LABS: Bilirubin, Total 0.3 mg/dL (0.2-1.0)
[2024-04-29 06:53] LABS: Aspartate Aminotransferase 53 U/L (13-40); Blood Urea Nitrogen 8 mg/dL (9-23); Glucose 119 mg/dL (74-106); Sodium 133 mmol/L (136-145)
--- NOTE | 2024-04-29 09:14 | DVHPN2 ---
Progress Note Date Seen: Apr 29, 2024 Medical Necessity Reason Pt with a Central, PICC or Fol: No Objective vital signs Vital Sign Date Time Temp Pulse Resp B/P (MAP) Pulse Ox O2 Delivery O2 Flow Rate FiO2 04/29/24 08:57 98.1 90 19 112/77 (89) 93 98.1 04/29/24 06:38 Room Air* 0 21 Total Intake and Output 04/28/24 04/28/24 04/29/24 15:00 23:00 07:00 Intake Total 700 ml 1918 ml 500 ml Output Total 24 ml 8 ml Balance 700 ml 1894 ml 492 ml medications Current Medications Medications Dose Ordered Sig/Clarence Route Start Time Stop Time Status Last Admin Dose Admin Piperacillin Sod/ Tazobactam Sod 100 ml @ 25 mls/hr Q8HR IV 04/26/24 22:00 04/29/24 05:36 25 MLS/HR Ibuprofen 600 mg Q8HP PRN PO 04/26/24 19:15 04/29/24 06:39 600 MG Albuterol 2.5 mg Q4HPRN PRN NEB 04/26/24 19:15 Ipratropium [place] 0.5 mg Q4HPRN PRN NEB 04/26/24 19:15 Famotidine 20 mg DAILY IV 04/27/24 10:00 04/28/24 09:22 20 MG Ondansetron HCl 4 mg Q4HP PRN IV 04/26/24 19:15 04/27/24 14:01 4 MG Docusate Sodium 100 mg BIDPRN PRN PO 04/26/24 19:15 Nitroglycerin 0.4 mg Q5MINP PRN SL 04/26/24 21:00 Morphine Sulfate 2 mg Q30M PRN IV 04/26/24 21:00 04/27/24 10:31 2 MG Thiamine HCl 100 mg DAILY PO 04/27/24 10:00 Folic Acid 1 mg DAILY PO 04/27/24 10:00 Multivitamins/ Minerals 1 tab DAILY PO 04/27/24 10:00 Morphine Sulfate 2 mg Q6HPRN PRN IV 04/27/24 10:30 04/28/24 01:22 2 MG Dextrose/Sodium Chloride 1,000 ml @ 75 mls/hr [id number] IV 04/27/24 16:30 04/28/24 22:17 75 MLS/HR Lorazepam 0.5 mg Q12HP PRN PO 04/27/24 17:30 04/27/24 19:10 0.5 MG Pantoprazole Sodium 40 mg DAILY IV 04/28/24 10:00 04/28/24 09:22 40 MG laboratory and microbiology Laboratory Tests 04/29/24 05:28 Test 04/29/24 05:28 Range/Units Serum Glucose 119 #H 74-106 mg/dL Microbiology Date/Time Source Procedure Growth Status 04/27/24 00:42 Nose MRSA Screen - Final Complete 04/26/24 17:29 Blood Blood Culture - Preliminary NO GROWTH AFTER 48 HOURS OF INCUBATION. Resulted Problem List/Assessment/Plan Problem List/Assessment/Plan AFEBRILE VSS NO INCREASING ABD PAIN BM + FLATUS + DIARRHEA WBC TRENDING DOWN WNL ABD SOFT LESS TENDER MORE IN THE LLQ HIGH RISK FOR SURGERY ONGOING RESUSCITATION CONTINUE CLOSE OBSERVATION CONSIDER EMERGENT SURGERY BASED ON ONGOING EVAL AND RESUSCITATION NURSE AT BEDSIDE Plan discussed with: Patient Dietary Evaluation Review Comments: 1. Pt not to go >7 days of NPO/CL diet only -> Currently DAY 3 2. Monitor bowel function; noted +BM and flatus w/ bowel sounds 3. Suggest diet advancement as medically able to low-residue diet 4. If unable to advance diet or prolonged period of NPO expected, recommend TPN w/ 1680 ml total vol, 60 gm lipid, 100 gm AA, 350 gm D (provides 2190 kcal) + standard electrolytes; advance to goal per pharmacy discretion Expected Outcomes/Goals: Improved nutritional status, weight maintenance. SENTHIL DIAZ MD Apr 29, 2024 09:14
--- NOTE | 2024-04-29 11:34 | DVH ---
Exam: XY KUB ABDOMEN SINGLE VIEW Indication: bowel obstruction Comparison: XY KUB ABDOMEN SINGLE VIEW on DOS: 04/27/24 Technique: 1 radiographic views of the abdomen. Findings: Nonspecific bowel-gas pattern. There is no definite evidence for pneumoperitoneum. No abnormal calcifications noted. Impression: Nonspecific bowel-gas pattern.
--- NOTE | 2024-04-29 11:52 | DVHPN2 ---
Subjective Reporting multiple BMs. Improvement with abdominal pain. Reviewed: Care Plan, H&P, Labs, Medications, Previous Orders Changes from previous H/P or p: No Changes General: Per HPI Eyes: No Pain, No Vision change, No Conjunctivae inflammation, No Eyelid inflammation, No Other, No Redness ENT: No Ear pain, No Ear discharge, No Nose pain, No Nose discharge, No Nose congestion, No Mouth pain, No Mouth swelling, No Throat pain, No Throat swelling, No Other Cardiovascular: No Chest Pain, No Palpitations, No Orthopnea, No Paroxysmal Noc. Dyspnea, No Edema, No Lt Headedness; Other (Hypotension) Respiratory: No Cough, No Dry, No Shortness of breath, No SOB with excertion, No Wheezing, No Hemoptysis, No Pleuritic Pain, No Sputum, No Other Gastrointestinal: No Nausea, No Vomiting; Abdominal Pain; No Diarrhea, No Constipation, No Melena, No Hematochezia, No Other Genitourinary: No Dysuria, No Frequency, No Incontinence, No Hematuria, No Retention, No Other Musculoskeletal: No other, No neck pain, No shoulder pain, No arm pain, No back pain, No hand pain, No leg pain, No foot pain Skin: No Rash, No Lesions, No Jaundice; Bruising (Skin); No Other Objective Vitals Vital Signs Date Time Temp Pulse Resp B/P (MAP) Pulse Ox O2 Delivery O2 Flow Rate FiO2 04/29/24 08:57 98.1 90 19 112/77 (89) 93 98.1 04/29/24 06:38 Room Air* 0 21 Intake/Output Intake and Output 04/29/24 07:00 Intake Total 3118 ml Output Total 32 ml Balance 3086 ml Intake Oral 2118 ml IV Total 1000 ml Output Urine Total 14 ml Stool Total 18 ml General Appearance: Alert, Oriented X3, Cooperative, No acute distress HEENT: Atraumatic Lungs: Clear to auscultation, Normal air movement Cardiovascular: Regular rate, Normal S1, Normal S2 Abdomen: Normal bowel sounds, Soft, No tenderness, Other Genitourinary: No Apparent Abnormalities Skin: Dry, Intact, Other (Ecchymosis to left buttock and thigh) Psych/Mental Status: Mental status NL, Mood NL Medications Current Medications Medications Dose Ordered Sig/Clarence Route Start Time Stop Time Status Last Admin Dose Admin Piperacillin Sod/ Tazobactam Sod 100 ml @ 25 mls/hr Q8HR IV 04/26/24 22:00 04/29/24 05:36 25 MLS/HR Ibuprofen 600 mg Q8HP PRN PO 04/26/24 19:15 04/29/24 06:39 600 MG Albuterol 2.5 mg Q4HPRN PRN NEB 04/26/24 19:15 Ipratropium [place] 0.5 mg Q4HPRN PRN NEB 04/26/24 19:15 Famotidine 20 mg DAILY IV 04/27/24 10:00 04/29/24 10:37 20 MG Ondansetron HCl 4 mg Q4HP PRN IV 04/26/24 19:15 04/27/24 14:01 4 MG Docusate Sodium 100 mg BIDPRN PRN PO 04/26/24 19:15 Nitroglycerin 0.4 mg Q5MINP PRN SL 04/26/24 21:00 Morphine Sulfate 2 mg Q30M PRN IV 04/26/24 21:00 04/27/24 10:31 2 MG Thiamine HCl 100 mg DAILY PO 04/27/24 10:00 04/29/24 10:37 100 MG Folic Acid 1 mg DAILY PO 04/27/24 10:00 04/29/24 10:37 1 MG Multivitamins/ Minerals 1 tab DAILY PO 04/27/24 10:00 04/29/24 10:37 1 TAB Morphine Sulfate 2 mg Q6HPRN PRN IV 04/27/24 10:30 04/28/24 01:22 2 MG Dextrose/Sodium Chloride 1,000 ml @ 75 mls/hr [id number] IV 04/27/24 16:30 04/28/24 22:17 75 MLS/HR Lorazepam 0.5 mg Q12HP PRN PO 04/27/24 17:30 04/27/24 19:10 0.5 MG Pantoprazole Sodium 40 mg DAILY IV 04/28/24 10:00 04/29/24 10:36 40 MG Patient Own Medication 1 cap DAILY PO 04/30/24 10:00 UNV Patient Own Medication 10 mg DAILY PO 04/30/24 10:00 UNV Patient Own Medication 20 mg DAILY PO 04/30/24 10:00 UNV Laboratory Results Laboratory Tests 04/29/24 05:28 Chemistry Test 3/11/25 05:28 Albumin 3.7 g/dL (3.2-4.8) Calcium Level 9.3 mg/dL (8.7-10.4) Total Protein 5.9 g/dL (5.7-8.2) LFT Test 04/29/24 05:28 Alanine Aminotransferase (ALT) 31 U/L (7-40) Alkaline Phosphatase 91 U/L (46-116) Aspartate Amino Transferase (AST) 53 U/L (13-40) H Total Bilirubin 0.3 mg/dL (0.2-1.0) Microbiology Microbiology Date/Time Source Procedure Growth Status 04/27/24 00:42 Nose MRSA Screen - Final Complete 04/26/24 17:29 Blood Blood Culture - Preliminary NO GROWTH AFTER 48 HOURS OF INCUBATION. Resulted Labs and/or images reviewed: Labs reviewed by me, Image(s) reviewed by me Assessment/Plan Assessment/Plan Impression: -probable small bowel obstruction -sepsis probably secondary to enteritis/colitis -acute kidney injury, vasomotor nephropathy -hyperkalemia -schizophrenia -primary hypertension -septic shock, resolved Plan: Events: Patient without anymore abdominal pain. Having multiple BMs. Repeat KUB negative for any type of obstruction. -restart home medications -advance diet -C diff pending -continue antibiotic therapy with Zosyn -continue IV hydration -transferred to Medical/Surgical -repeat labs in a.m. Total time spent with patient discussing and formulating plan of care: 35 minutes. This medical document was created using an electronic medical record system with [employer] dictation system. Although this document has been carefully reviewed, there may still be some phonetic and typographical errors. These areas are purely typographical due to imperfections of the software programs, and do not reflect any compromise in the patient's medical care. Plan discussed with: Patient, Other (RN) My Orders Orders - KARSTEN CAST [employer] Procedure Category Date Status Time Drug Screen LAB 04/28/24 Logged 13:00 (Nf) Fluoxetine Hcl PHA 04/30/24 Logged 10:00 (Nf) Montelukast PHA 04/30/24 Logged Sodium (Singulair) 10:00 (Nf) Olanzapine PHA 04/30/24 Logged (Zyprexa) 10:00 Kub Abdomen Single XY 04/29/24 Resulted View 10:54 Mechanical Soft Diet DIET 04/29/24 Verified Lunch Basic Metabolic Panel LAB 04/30/24 Verified 04:00 Date of Service: Apr 29, 2024 Billing Provider: KARSTEN CAST NP Common Visit Codes: [id number] INP/OBS CARE(HIGH) KARSTEN CAST NP Apr 29, 2024 11:52
--- NOTE | 2024-04-29 12:59 | DVHINCON2 ---
Date of service: Apr 29, [address] DIAZ Reason for Consultation Acute kidney injury History of Present Illness Patient is 59-year-old male with past medical history significant for ANXIETY, DEPRESSION, CHF, COPD, HTN, and SCHIZOPHRENIA is admitted for abdominal pain associated with diarrhea. On admission patient found to have elevated BUN creatinine nephrology is consulted for acute kidney injury Past Medical History ANXIETY, DEPRESSION, CHF, COPD, HTN, SCHIZOPHRENIA Past Surgical History Past Surgical History: TONSILLECTOMY Allergies: Coded Allergies: NO KNOWN ALLERGIES (Unverified , 06/21/09) Home Meds Reported Medications Potassium Chloride (Klor-Con M10) 10 Meq Tab, 1 TAB PO DAILY 12/25/22 Furosemide (Lasix) 20 Mg Tb, 1 TAB PO DAILY 12/25/22 Hydrocodone-Acetaminophen (Hydrocodone/Acetaminophen 10-325 mg) 1 Tab Tab, 1 TAB PO TID 12/25/22 Tramadol Hcl (Tramadol Hcl) 50 Mg Tab, 50 MG PO BID 12/25/22 Lorazepam (Ativan) 0.5 Mg Tab, 1 MG PO qhs 12/25/22 Montelukast Sodium (Singulair) 5 Mg Chw, 10 MG PO DAILY 12/25/22 Suvorexant (Belsomra) 20 Mg Tab, 20 MG PO DAILY 12/25/22 Sucralfate (CARAFATE) 1 Gm Tab, 2 GM PO BID 12/25/22 Ondansetron Odt 4MG Tab (ZOFRAN PO) 4 Mg Tb, 4 MG PO Q8HPRN PRN for NAUSEA / VOMITING ODT TAB-DISSOLVE IN MOUTH, THEN SWALLOW 12/25/22 Fluoxetine Hcl (Fluoxetine Hcl) 40 Mg Cap, 1 CAP PO DAILY 12/28/20 Disulfiram (DISULFIRAM) 250 Mg Tab, 1 TAB PO DAILY 12/28/20 Diphenoxylate W/ Atropine (Diphenoxylate/Atropine 2.5-0.025 mg) 1 Tab Tab, 1 TAB PO QID PRN for FOR DIARRHEA 12/28/20 Dexlansoprazole (Dexilant) 60 Mg Cap, 1 CAP PO BID 12/28/20 Albuterol Sulfate (Albuterol Sulfate Hfa) 108 Mcg/Act Aer, 2 PUFF PO Q4HPRN PRN for wheezing 12/28/20 Benazepril Hcl (Benazepril Hcl) 10 Mg Tab, 1 TAB PO DAILY 12/28/20 Kuqcbbqyewu-Yxyahfevwtod-Exvtr (Trelegy Ellipta 100-62.5-25 Mcg/INH) 1 Aer Aer, 1 PUFF PO DAILY 12/28/20 Olanzapine (Zyprexa) 20 Mg Tab, 20 MG PO DAILY 12/06/20 Current Medications Current Medications Medications (Trade) Dose Ordered Sig/Clarence Route PRN Reason Start Time Stop Time Status Last Admin Patient Own Medication 1 cap DAILY PO 04/30/24 10:00 UNV Patient Own Medication 10 mg DAILY PO 04/30/24 10:00 UNV Patient Own Medication 20 mg DAILY PO 04/30/24 10:00 UNV Sodium Chloride 1,000 ml @ 100 mls/hr Q10H IV 04/29/24 13:00 UNV Family History: Asthma G8 MOTHER Diabetes mellitus G8 FATHER FHx: congestive heart failure G8 MOTHER Hypertension G8 MOTHER G8 FATHER Review of Systems All 12 item review of systems reviewed with the patient nonsignificant except what is mentioned in the history of present illness H&P Exam Vital Signs/I&O Vital Sign Date Time Temp Pulse Resp B/P (MAP) Pulse Ox O2 Delivery O2 Flow Rate FiO2 04/29/24 13:00 98.2 85 19 114/76 (89) 98 98.2 04/29/24 10:00 Nasal Cannula 3.0 04/29/24 10:00 32 Intake and Output 04/28/24 04/29/24 19:00 07:00 Intake Total 2518 ml 600 ml Output Total 24 ml 8 ml Balance 2494 ml 592 ml Intake Oral 1718 ml 400 ml IV Total 800 ml 200 ml Output Urine Total 12 ml 2 ml Stool Total 12 ml 6 ml Physical Exam Patient is awake alert Lungs clear to auscultation bilaterally Cardiac exam regular rate and rhythm GI soft bowel sounds are present was normal Extremities no clubbing cyanosis or edema Neuro nonfocal Labs/Diagnostic Data Labs/Diagnostic Data Laboratory Tests Test 04/29/24 05:28 04/28/24 05:38 04/27/24 10:34 04/27/24 04:19 Range/Units White Blood Count 10.4 # 4.4-10.8 10^3/uL Red Blood Count 3.89 L 4.5-5.90 10^6/uL Hemoglobin 13.0 L 14.3 # 13.5-17.5 g/dL Hematocrit 36.9 #L 41.1 # 41.0-53.0 % Mean Corpuscular Volume 94.9 80.0-100.0 fL Mean Corpuscular Hemoglobin 33.3 H 28.0-32.0 pg Mean Corpuscular Hemoglobin Concent 35.1 32.0-36.0 g/dL Red Cell Distribution Width 13.2 11.8-14.3 % Platelet Count 233 140-450 10^3/uL Mean Platelet Volume 7.7 6.9-10.8 fL Neutrophils (%) (Auto) 85.2 H 37.0-80.0 % Lymphocytes (%) (Auto) 5.5 L 10.0-50.0 % Monocytes (%) (Auto) 8.7 0.0-12.0 % Eosinophils (%) (Auto) 0.4 0.0-7.0 % Basophils (%) (Auto) 0.2 0.0-2.0 % Neutrophils # (Auto) 8.8 H 1.6-8.6 10 ^3/uL Lymphocytes # (Auto) 0.6 0.4-5.4 10 ^3/uL Monocytes # (Auto) 0.9 0-1.3 10 ^3/uL Eosinophils # (Auto) 0 0-0.8 10 ^3/uL Basophils # (Auto) 0 0-0.2 10 ^3/uL Nucleated Red Blood Cells 0.0 % Sodium Level 133 L 135 #L 127 L 136-145 mmol/L Potassium Level 4.3 4.5 4.9 3.5-5.1 mmol/L Chloride Level 100 105 102 98-107 mmol/L Carbon Dioxide Level 27 24 19 L 20-31 mmol/L Anion Gap 6 6 6 5-15 Blood Urea Nitrogen 8 #L 19 # 35 H 9-23 mg/dL Creatinine 0.63 L 0.87 1.63 H 0.700-1.30 mg/dL Glomerular Filtration Rate Calc 111 101 49 >90 mL/min BUN/Creatinine Ratio 12.7 21.8 H 21.5 H 10.0-20.0 Serum Glucose 119 #H 219 H 276 H 74-106 mg/dL Calcium Level 9.3 9.2 8.7 8.7-10.4 mg/dL Phosphorus Level 1.8 L 2.4-5.1 mg/dL Magnesium Level 1.9 1.6-2.6 mg/dL Total Bilirubin 0.3 0.2-1.0 mg/dL Aspartate Amino Transferase (AST) 53 H 13-40 U/L Alanine Aminotransferase (ALT) 31 7-40 U/L Alkaline Phosphatase 91 46-116 U/L Total Protein 5.9 5.7-8.2 g/dL Albumin 3.7 3.2-4.8 g/dL Lactic Acid Level 2.7 *H 0.4-2.0 mmol/L Test 04/27/24 03:39 04/27/24 01:55 04/26/24 23:23 04/26/24 21:00 Range/Units White Blood Count 23.9 #H 4.4-10.8 10^3/uL Red Blood Count 5.55 4.5-5.90 10^6/uL Hemoglobin 18.1 H 13.5-17.5 g/dL Hematocrit 53.1 H 41.0-53.0 % Mean Corpuscular Volume 95.7 80.0-100.0 fL Mean Corpuscular Hemoglobin 32.6 H 28.0-32.0 pg Mean Corpuscular Hemoglobin Concent 34.1 32.0-36.0 g/dL Red Cell Distribution Width 13.6 11.8-14.3 % Platelet Count 316 140-450 10^3/uL Mean Platelet Volume 7.8 6.9-10.8 fL Neutrophils (%) (Auto) 37.0-80.0 % Lymphocytes (%) (Auto) 10.0-50.0 % Monocytes (%) (Auto) 0.0-12.0 % Basophils (%) (Auto) 0.0-2.0 % Neutrophils # (Auto) 1.6-8.6 10 ^3/uL Lymphocytes # (Auto) 0.4-5.4 10 ^3/uL Monocytes # (Auto) 0-1.3 10 ^3/uL Differential Total Cells Counted 100.0 100 Neutrophils % (Manual) 76 37.0-80.0 Band Neutrophils % (Manual) 11 Lymphocytes % (Manual) 3 L 10.0-50.0 Monocytes % (Manual) 10 0-12 Eosinophils % (Manual) 0 0-7 Basophils % (Manual) 0 0.0-2.0 Metamyelocytes % (manual) 0 Myelocytes % (Manual) 0 Promyelocytes % (Manual) 0 Blast Cells % (Manual) 0 Reactive Lymphocytes 0 Platelet Estimate Adequate Sodium Level 128 L 136-145 mmol/L Potassium Level 5.7 *H 3.5-5.1 mmol/L Chloride Level 100 98-107 mmol/L Carbon Dioxide Level 16 L 20-31 mmol/L Anion Gap 12 5-15 Blood Urea Nitrogen 31 H 9-23 mg/dL Creatinine 1.73 H 0.700-1.30 mg/dL Glomerular Filtration Rate Calc 45 >90 mL/min BUN/Creatinine Ratio 17.9 10.0-20.0 Serum Glucose 281 H 74-106 mg/dL Calcium Level 9.0 8.7-10.4 mg/dL Total Bilirubin 0.3 0.2-1.0 mg/dL Aspartate Amino Transferase (AST) 103 H 13-40 U/L Alanine Aminotransferase (ALT) 48 H 7-40 U/L Alkaline Phosphatase 127 H 46-116 U/L Total Protein 6.3 5.7-8.2 g/dL Albumin 4.0 3.2-4.8 g/dL Lactic Acid Level 2.4 *H 2.6 *H 0.4-2.0 mmol/L Prothrombin Time 14.0 H 9.3-11.8 sec Prothrombin Time INR 1.36 H 0.9-1.15 Activated Partial Thromboplast Time 52.4 H 24.5-34.5 SEC Test 04/26/24 19:09 04/26/24 18:21 04/26/24 17:29 04/26/24 16:36 Range/Units White Blood Count 35.2 *H 4.4-10.8 10^3/uL Red Blood Count 5.51 4.5-5.90 10^6/uL Hemoglobin 17.8 H 13.5-17.5 g/dL Hematocrit 52.5 41.0-53.0 % Mean Corpuscular Volume 95.2 80.0-100.0 fL Mean Corpuscular Hemoglobin 32.4 H 28.0-32.0 pg Mean Corpuscular Hemoglobin Concent 34.0 32.0-36.0 g/dL Red Cell Distribution Width 13.3 11.8-14.3 % Platelet Count 356 140-450 10^3/uL Mean Platelet Volume 7.9 6.9-10.8 fL Neutrophils (%) (Auto) 94.0 H 37.0-80.0 % Lymphocytes (%) (Auto) 1.3 L 10.0-50.0 % Monocytes (%) (Auto) 4.6 0.0-12.0 % Eosinophils (%) (Auto) 0.0 0.0-7.0 % Basophils (%) (Auto) 0.1 0.0-2.0 % Neutrophils # (Auto) 33.1 H 1.6-8.6 10 ^3/uL Lymphocytes # (Auto) 0.5 0.4-5.4 10 ^3/uL Monocytes # (Auto) 1.6 H 0-1.3 10 ^3/uL Eosinophils # (Auto) 0 0-0.8 10 ^3/uL Basophils # (Auto) 0 0-0.2 10 ^3/uL Nucleated Red Blood Cells 0.0 % Prothrombin Time 14.0 H 9.3-11.8 sec Prothrombin Time INR 1.36 H 0.9-1.15 Activated Partial Thromboplast Time 75.1 *H 24.5-34.5 SEC Sodium Level 128 L 136-145 mmol/L Potassium Level 4.9 3.5-5.1 mmol/L Chloride Level 101 98-107 mmol/L Carbon Dioxide Level 15 L 20-31 mmol/L Anion Gap 12 5-15 Blood Urea Nitrogen 26 H 9-23 mg/dL Creatinine 1.53 H 0.700-1.30 mg/dL Glomerular Filtration Rate Calc 53 >90 mL/min BUN/Creatinine Ratio 17.0 10.0-20.0 Serum Glucose 193 H 74-106 mg/dL Hemoglobin A1c 5.7 <5.7 % A1C Lactic Acid Level 3.1 *H 4.5 *H 0.4-2.0 mmol/L Calcium Level 9.0 8.7-10.4 mg/dL Total Bilirubin 0.3 0.2-1.0 mg/dL Aspartate Amino Transferase (AST) 144 H 13-40 U/L Alanine Aminotransferase (ALT) 51 H 7-40 U/L Alkaline Phosphatase 145 H 46-116 U/L Total Protein 6.0 5.7-8.2 g/dL Albumin 3.8 3.2-4.8 g/dL Lipase 44 12-53 U/L Troponin I High Sensitivity 71 *H 70 *H </=54 ng/L Test 04/26/24 15:35 Range/Units White Blood Count 38.2 *H 4.4-10.8 10^3/uL Red Blood Count 5.82 4.5-5.90 10^6/uL Hemoglobin 18.8 H 13.5-17.5 g/dL Hematocrit 55.8 H 41.0-53.0 % Mean Corpuscular Volume 96.0 80.0-100.0 fL Mean Corpuscular Hemoglobin 32.3 H 28.0-32.0 pg Mean Corpuscular Hemoglobin Concent 33.7 32.0-36.0 g/dL Red Cell Distribution Width 13.3 11.8-14.3 % Platelet Count 419 140-450 10^3/uL Mean Platelet Volume 7.6 6.9-10.8 fL Neutrophils (%) (Auto) 37.0-80.0 % Lymphocytes (%) (Auto) 10.0-50.0 % Monocytes (%) (Auto) 0.0-12.0 % Basophils (%) (Auto) 0.0-2.0 % Neutrophils # (Auto) 1.6-8.6 10 ^3/uL Lymphocytes # (Auto) 0.4-5.4 10 ^3/uL Monocytes # (Auto) 0-1.3 10 ^3/uL Differential Total Cells Counted 100.0 100 Neutrophils % (Manual) 71 37.0-80.0 Band Neutrophils % (Manual) 17 Lymphocytes % (Manual) 4 L 10.0-50.0 Monocytes % (Manual) 7 0-12 Eosinophils % (Manual) 0 0-7 Basophils % (Manual) 0 0.0-2.0 Metamyelocytes % (manual) 1 Myelocytes % (Manual) 0 Promyelocytes % (Manual) 0 Blast Cells % (Manual) 0 Reactive Lymphocytes 0 Platelet Estimate [place] Large Platelets Few Sodium Level 129 L 136-145 mmol/L Potassium Level 4.8 3.5-5.1 mmol/L Chloride Level 96 L 98-107 mmol/L Carbon Dioxide Level 19 L 20-31 mmol/L Anion Gap 14 5-15 Blood Urea Nitrogen 20 9-23 mg/dL Creatinine 1.44 H 0.700-1.30 mg/dL Glomerular Filtration Rate Calc 57 >90 mL/min BUN/Creatinine Ratio 13.9 10.0-20.0 Serum Glucose 194 H 74-106 mg/dL Lactic Acid Level 5.0 *H 0.4-2.0 mmol/L Calcium Level 10.4 8.7-10.4 mg/dL Total Bilirubin 0.4 0.2-1.0 mg/dL Aspartate Amino Transferase (AST) 144 H 13-40 U/L Alanine Aminotransferase (ALT) 54 H 7-40 U/L Alkaline Phosphatase 170 H 46-116 U/L Troponin I High Sensitivity 70 *H </=54 ng/L B-Type Natriuretic Peptide 82.32 0-100 pg/mL Total Protein 6.4 5.7-8.2 g/dL Albumin 4.2 3.2-4.8 g/dL Lipase 67 H 12-53 U/L Microbiology Date/Time Source Procedure Growth Status 04/28/24 20:07 Stool Clostridium difficile Toxin Assay - Final Complete 04/27/24 00:42 Nose MRSA Screen - Final Complete Assessment Acute kidney injury secondary to dehydration Diarrhea rule out C diff Metabolic acidosis Hyponatremia due to hypotonic IV fluid Transaminitis Recommendations Closely monitor fluid and electrolytes Avoid nephrotoxic medications Strict I&Os Change IV fluid to NS at 100 cc/hour KCL replacement Check urinalysis urine electrolytes We will continue to follow Patient seen and examined by myself. I discussed my plan of care with the patie nt and primary nurse at the bedside I would like to thank Dr. Diaz for the consult, will follow up Plan discussed with: Patient RUBY UMAÑA MD Apr 29, 2024 12:59
--- NOTE | 2024-04-29 13:13 | DVHPN2 ---
Progress Note - Dictate Date Seen: Apr 29, 2024 Medical Necessity Reason Pt with a Central, PICC or Fol: No Subjective PT WITH ABD PAIN ABD DISTENSION STOOL IMPACTION HYPOTENSION LEUKOCYTOSIS WITH LEFT SHIFT LEUKOCYTOSIS PROFILE IMPROVING NOW PT WITH BOWEL EMPTYING SX ARE IMPROVING HX OF CAD EF45% COPD/ ON HOME O2 TOBACCO USE ETOH USE HX OF GASTROPARESIS PAD Right lower extremity angiography revealed: * Right common iliac without any flow restrictive lesion. * Right external and internal iliac without any flow restrictive lesion. * Right common femoral without any flow restrictive lesion. * Right profunda and superficial femoral artery without any flow restrictive lesion. * Right popliteal, tibioperoneal trunk, anterior tibial, posterior tibial and the peroneal arteries were all patent all the way down to the ankle. Left lower extremity angiography revealed: * Left common iliac without any flow restrictive lesion. * Left common external and internal iliacs without any flow restrictive lesion. * Left common femoral without any flow restrictive lesion. * Left profunda and superficial femoral artery without any flow restrictive lesion. * Left popliteal, tibioperoneal trunk, posterior tibial and the peroneal arteries without any flow restrictive lesion. * Anterior tibial, however, is occluded at the level of the ankle. Unable to revascularize because of collateral circulation both from the posterior tibial and peroneal arteries. Furthermore, because of the heart rate that he has, I believe that is what compromises his circulation. At this time, the patient is having adequate supply to the ankle. There is no indication for revascularization of the anterior tibial at this time, especially with collateral circulation. Conservative medical management will be implemented. NATACHA/ WITH MULTIPLE ANKLE SURGERIES DEPRESSION HTN vital signs Vital Sign Date Time Temp Pulse Resp B/P (MAP) Pulse Ox O2 Delivery O2 Flow Rate FiO2 04/29/24 10:00 94 Nasal Cannula 3.0 04/29/24 10:00 32 04/29/24 08:57 98.1 90 19 112/77 (89) 98.1 Total Intake and Output 04/28/24 04/28/24 04/29/24 15:00 23:00 07:00 Intake Total 700 ml 1918 ml 500 ml Output Total 24 ml 8 ml Balance 700 ml 1894 ml 492 ml medications Current Medications Medications Dose Ordered Sig/Clarence Route Start Time Stop Time Status Last Admin Dose Admin Piperacillin Sod/ Tazobactam Sod 100 ml @ 25 mls/hr Q8HR IV 04/26/24 22:00 04/29/24 05:36 25 MLS/HR Albuterol 2.5 mg Q4HPRN PRN NEB 04/26/24 19:15 Ipratropium [place] 0.5 mg Q4HPRN PRN NEB 04/26/24 19:15 Famotidine 20 mg DAILY IV 04/27/24 10:00 04/29/24 10:37 20 MG Ondansetron HCl 4 mg Q4HP PRN IV 04/26/24 19:15 04/27/24 14:01 4 MG Docusate Sodium 100 mg BIDPRN PRN PO 04/26/24 19:15 Nitroglycerin 0.4 mg Q5MINP PRN SL 04/26/24 21:00 Morphine Sulfate 2 mg Q30M PRN IV 04/26/24 21:00 04/27/24 10:31 2 MG Thiamine HCl 100 mg DAILY PO 04/27/24 10:00 04/29/24 10:37 100 MG Folic Acid 1 mg DAILY PO 04/27/24 10:00 04/29/24 10:37 1 MG Multivitamins/ Minerals 1 tab DAILY PO 04/27/24 10:00 04/29/24 10:37 1 TAB Morphine Sulfate 2 mg Q6HPRN PRN IV 04/27/24 10:30 04/28/24 01:22 2 MG Lorazepam 0.5 mg Q12HP PRN PO 04/27/24 17:30 04/27/24 19:10 0.5 MG Pantoprazole Sodium 40 mg DAILY IV 04/28/24 10:00 04/29/24 10:36 40 MG Patient Own Medication 1 cap DAILY PO 04/30/24 10:00 UNV Patient Own Medication 10 mg DAILY PO 04/30/24 10:00 UNV Patient Own Medication 20 mg DAILY PO 04/30/24 10:00 UNV Sodium Chloride 1,000 ml @ 100 mls/hr Q10H IV 04/29/24 13:00 UNV laboratory and microbiology Laboratory Tests 04/29/24 05:28 Test 04/29/24 05:28 Range/Units Serum Glucose 119 #H 74-106 mg/dL Problem List ABD PAIN ABD DISTENSION STOOL IMPACTION HYPOTENSION LEUKOCYTOSIS WITH LEFT SHIFT LEUKOCYTOSIS PROFILE IMPROVING NOW PT WITH BOWEL EMPTYING SX ARE IMPROVING HX OF CAD EF45% COPD/ ON HOME O2 TOBACCO USE ETOH USE HX OF GASTROPARESIS PAD Right lower extremity angiography revealed: * Right common iliac without any flow restrictive lesion. * Right external and internal iliac without any flow restrictive lesion. * Right common femoral without any flow restrictive lesion. * Right profunda and superficial femoral artery without any flow restrictive lesion. * Right popliteal, tibioperoneal trunk, anterior tibial, posterior tibial and the peroneal arteries were all patent all the way down to the ankle. Left lower extremity angiography revealed: * Left common iliac without any flow restrictive lesion. * Left common external and internal iliacs without any flow restrictive lesion. * Left common femoral without any flow restrictive lesion. * Left profunda and superficial femoral artery without any flow restrictive lesion. * Left popliteal, tibioperoneal trunk, posterior tibial and the peroneal arteries without any flow restrictive lesion. * Anterior tibial, however, is occluded at the level of the ankle. Unable to revascularize because of collateral circulation both from the posterior tibial and peroneal arteries. Furthermore, because of the heart rate that he has, I believe that is what compromises his circulation. At this time, the patient is having adequate supply to the ankle. There is no indication for revascularization of the anterior tibial at this time, especially with collateral circulation. Conservative medical management will be implemented. NATACHA/ WITH MULTIPLE ANKLE SURGERIES DEPRESSION HTN Assessment/Plan ABX IV FLUIDS CORRECT LYTES KUB OBSTRUCTION RESOLVED LEUKOCYTOSIS RESOLVED Dietary Evaluation Review Comments: 1. Pt not to go >7 days of NPO/CL diet only -> Currently DAY 3 2. Monitor bowel function; noted +BM and flatus w/ bowel sounds 3. Suggest diet advancement as medically able to low-residue diet 4. If unable to advance diet or prolonged period of NPO expected, recommend TPN w/ 1680 ml total vol, 60 gm lipid, 100 gm AA, 350 gm D (provides 2190 kcal) + standard electrolytes; advance to goal per pharmacy discretion Expected Outcomes/Goals: Improved nutritional status, weight maintenance. Plan discussed with: Patient ROBERT CHRISTENSEN MD Apr 29, 2024 13:13
--- NOTE | 2024-04-29 14:45 | DVHINCON2 ---
GI Consult Consult Note GI consult note Date of Consultation: 04/29/2024 Chief Complaint: Diarrhea Referring Physician: Dr. Leno Meza H&P: 59-year-old male presented to ER with abdominal pain, in epigastric area that was constant and nonradiating Patient admits to pain having improved at this time. No nausea or vomiting. No hematemesis Patient does complain of loose stool, one stool per hour per patient. No melena or red blood in stool No recent antibiotic use per patient Patient admits to having a poor appetite at this time Past Medical History: ANXIETY, DEPRESSION, CHF, COPD, HTN, SCHIZOPHRENIA Past Surgical History: Tonsillectomy Social History: CIGARETTES, ALCOHOL, MARIJUANA Family History: Noncontributory Review of Systems: Constitutional: no fever, chill, weight loss HEENT: no eye pain, no hearing loss, no oral lesion, no scleral icterus Heart: no chest pain, no chest pressure Lung: no cough, no dyspnea with exertion Abdomen: see HPI Physical exam: General: NAD, AAOX3 Chest: lung dennis clear to auscultation Heart: RRR, no murmur Abdomen: non-distended, no tenderness to palpation, +BS Labs: Chemistry Test 04/29/24 05:28 Albumin 3.7 g/dL (3.2-4.8) Calcium Level 9.3 mg/dL (8.7-10.4) Total Protein 5.9 g/dL (5.7-8.2) LFT Test 04/29/24 05:28 Alanine Aminotransferase (ALT) 31 U/L (7-40) Alkaline Phosphatase 91 U/L (46-116) Aspartate Amino Transferase (AST) 53 U/L (13-40) H Total Bilirubin 0.3 mg/dL (0.2-1.0) Microbiology Microbiology Date/Time Source Procedure Growth Status 04/27/24 00:42 Nose MRSA Screen - Final Complete 04/26/24 17:29 Blood Blood Culture - Preliminary NO GROWTH AFTER 48 HOURS OF INCUBATION. Resulted Labs and/or images reviewed: Labs reviewed by me, Image(s) reviewed by me Imaging: CT abdomen pelvis IMPRESSION: 1. The stomach is moderately fluid distended. Suggest decompression by placement of an enteric tube. 2. Moderate fluid and fecal distention of the large bowel with loss of haustration without Mural thickening. 3. Borderline dilated appendix measuring 0.7 cm in caliber with mild mural thickening and adjacent fat stranding without an appendicolith. Developing appendicitis can not be ruled out. Recommend clinical and biochemical correlation. Abdominal x-ray Impression: Nonspecific bowel-gas pattern. Assessment: Abdominal pain improving Probable small bowel obstruction improving Diarrhea Plan: -discussed with Dr. Meza stool for C diff since last test was incomplete Continue antibiotic treatment Advance diet as tolerated We will continue to monitor the patient Thank you for this consult Date of Service: Apr 29, 2024 Billing Provider: ALEX SANTANA Common Visit Codes: CONSULT ONLY Consultation Codes: [id number] CONSULT <45MIN ALEX SANTANA Apr 29, 2024 14:45
[2024-04-29 14:57] LABS: Magnesium 1.9 mg/dL (1.6-2.6)
[2024-04-29 15:01] LABS: Phosphorus 1.8 mg/dL (2.4-5.1)
[2024-04-29] MEDS: SODIUM CHLORIDE 0.9% 1,000 ML IV SCH (20:00)
[2024-04-30] VITALS (7 sets, daily range): BP systolic 122–140; BP diastolic 68–97; PULSE 81–100; RESP 16–20; TEMP 97.6–98.9; O2SAT 93–99
[2024-04-30 04:37] LABS: Urine Bacteria None Seen /hpf (None Seen)
[2024-04-30 04:49] LABS: Urine Blood Negative /uL (Negative); Urine Clarity Clear (Clear); Urine Color STRAW (Yellow); Urine Protein, UAD Negative (Negative); Urine Specific Gravity 1.003 (1.001-1.035); Urine Squamous Epithelial Cell None Seen /hpf (<5); Urine Urobilinogen Normal (Negative); Urine pH 6.5 (5.0-9.0)
[2024-04-30 04:54] LABS: Sodium Urine 17 mmol/L (40-220)
[2024-04-30 05:01] LABS: Cannabinoid Screen, Urine Pos (NEGATIVE)
[2024-04-30 05:02] LABS: Creatinine, Urine 11.96 mg/dL (30.0-125.0)
[2024-04-30 05:04] LABS: Amphetamine Screen, Urine Neg (NEGATIVE); Barbiturate Scree,Urine Neg (NEGATIVE); Benzodiazephine Screen, Urine Neg (NEGATIVE); Cocaine Screen, Urine Neg (NEGATIVE); Opiate Scree,Urine Neg (NEGATIVE); Phencyclidine Screen, Urine Neg (NEGATIVE); Protein, Urine < 6.0 mg/dL (1-14)
[2024-04-30 05:57] LABS: Anion Gap 5 (5-15); Carbon Dioxide 27 mmol/L (20-31); Chloride 100 mmol/L (98-107); Potassium 3.9 mmol/L (3.5-5.1)
[2024-04-30 05:58] LABS: Calcium 9.2 mg/dL (8.7-10.4)
[2024-04-30 06:03] LABS: BUN/Creatinine Ratio 9.7 (10.0-20.0); Glucose 81 mg/dL (74-106)
[2024-04-30 06:06] LABS: Blood Urea Nitrogen 6 mg/dL (9-23); Sodium 132 mmol/L (136-145)
--- NOTE | 2024-04-30 09:51 | DVHPN2 ---
Progress Note Date Seen: Apr 30, 2024 Resident Creating Document: JESUS PARSONS RESIDENT Medical Necessity Reason Pt with a Central, PICC or Fol: No Subjective Review of Systems 59-year-old male presented to ER with abdominal pain, in epigastric area that was constant and nonradiating, Patient admits to pain having improved at this time. No nausea or vomiting. No hematemesis, Patient does complain of loose stool, one stool per hour per patient. No melena or red blood in stool, No recent antibiotic use per patient, Patient admits to having a poor appetite at this time. Objective vital signs Vital Sign Date Time Temp Pulse Resp B/P (MAP) Pulse Ox O2 Delivery O2 Flow Rate FiO2 04/30/24 08:46 98.3 97 20 124/72 (89) 97 98.3 04/29/24 20:00 Nasal Cannula* 3 32 Total Intake and Output 04/29/24 04/29/24 04/30/24 15:00 23:00 07:00 Intake Total 100 ml 800 ml 3130 ml Output Total 600 ml Balance 100 ml 800 ml 2530 ml medications Current Medications Medications Dose Ordered Sig/Clarence Route Start Time Stop Time Status Last Admin Dose Admin Piperacillin Sod/ Tazobactam Sod 100 ml @ 25 mls/hr Q8HR IV 04/26/24 22:00 04/30/24 05:34 25 MLS/HR Albuterol 2.5 mg Q4HPRN PRN NEB 04/26/24 19:15 Cancel Ipratropium [place] 0.5 mg Q4HPRN PRN NEB 04/26/24 19:15 Cancel Famotidine 20 mg DAILY IV 04/27/24 10:00 04/29/24 10:37 20 MG Ondansetron HCl 4 mg Q4HP PRN IV 04/26/24 19:15 04/27/24 14:01 4 MG Docusate Sodium 100 mg BIDPRN PRN PO 04/26/24 19:15 Nitroglycerin 0.4 mg Q5MINP PRN SL 04/26/24 21:00 Morphine Sulfate 2 mg Q30M PRN IV 04/26/24 21:00 04/27/24 10:31 2 MG Thiamine HCl 100 mg DAILY PO 04/27/24 10:00 04/29/24 10:37 100 MG Folic Acid 1 mg DAILY PO 04/27/24 10:00 04/29/24 10:37 1 MG Multivitamins/ Minerals 1 tab DAILY PO 04/27/24 10:00 04/29/24 10:37 1 TAB Morphine Sulfate 2 mg Q6HPRN PRN IV 04/27/24 10:30 04/28/24 01:22 2 MG Lorazepam 0.5 mg Q12HP PRN PO 04/27/24 17:30 04/27/24 19:10 0.5 MG Pantoprazole Sodium 40 mg DAILY IV 04/28/24 10:00 04/29/24 10:36 40 MG Fluoxetine HCl 20 mg DAILY PO 04/30/24 10:00 Montelukast Sodium 10 mg DAILY PO 04/30/24 10:00 Olanzapine 20 mg DAILY PO 04/30/24 10:00 Sodium Chloride 1,000 ml @ 100 mls/hr Q10H IV 04/29/24 13:00 04/29/24 20:00 100 MLS/HR Examination GENERAL: Not in acute distress. HEENT: EOMI, Moist mucous membranes. No scleral icterus. No cervical lymphadenopathy. LUNGS: Clear to auscultation bilaterally. No accessory muscle use. CARDIOVASCULAR: Regular rate and rhythm. No murmur. No JVD. ABDOMEN: Soft, nontender and nondistended. Bowel sounds hyperactive. EXTREMITIES: No edema. Nontender. SKIN: No rashes or lesions. Warm. NEUROLOGIC: Alert and oriented X3 laboratory and microbiology Laboratory Tests 04/30/24 05:13 04/29/24 05:28 Test 04/30/24 05:13 Range/Units Serum Glucose 81 74-106 mg/dL Microbiology Date/Time Source Procedure Growth Status 04/28/24 20:07 Stool Clostridium difficile Toxin Assay - Final Complete 04/27/24 00:42 Nose MRSA Screen - Final Complete 04/26/24 17:29 Blood Blood Culture - Preliminary NO GROWTH AFTER 72 HOURS OF INCUBATION. Resulted Problem List/Assessment/Plan Problem List/Assessment/Plan # Ruled out small bowel obstruction # sepsis probably secondary to enteritis/colitis # ALEXANDRA, vasomotor nephropathy # hyperkalemia # schizophrenia # primary hypertension # diarrhea Plan - Having multiple BMs. Repeat KUB negative for any type of obstruction. - continue antibiotics -stool for C diff since last test was incomplete - repeat C diff, sample already collected. - start cholestyramine b.i.d. - Lomotil 2.5 p.r.n. after each bowel movement -Flagyl 500 mg Q 8 hours - continue IV hydration -Advance diet as tolerated Thank you so much for the opportunity to consult on your patient. GI team will follow the patient. In case of any questions or concerns please feel free to reach out. Case discussed with Dr. Terrence Meza. The patient and caregiver team agreed to the plan. Plan discussed with: Patient Dietary Evaluation Review Comments: 1. Pt not to go >7 days of NPO/CL diet only -> Currently DAY 3 2. Monitor bowel function; noted +BM and flatus w/ bowel sounds 3. Suggest diet advancement as medically able to low-residue diet 4. If unable to advance diet or prolonged period of NPO expected, recommend TPN w/ 1680 ml total vol, 60 gm lipid, 100 gm AA, 350 gm D (provides 2190 kcal) + standard electrolytes; advance to goal per pharmacy discretion Expected Outcomes/Goals: Improved nutritional status, weight maintenance. JESUS PARSONS RESIDENT Apr 30, 2024 09:51
--- NOTE | 2024-04-30 10:41 | DVHPN2 ---
Progress Note Date Seen: Apr 30, 2024 Medical Necessity Reason Pt with a Central, PICC or Fol: No Subjective Patient reports: No new complaints Other Systems: Patient seen and examined by myself today in follow-up Objective vital signs Vital Sign Date Time Temp Pulse Resp B/P (MAP) Pulse Ox O2 Delivery O2 Flow Rate FiO2 04/30/24 08:46 98.3 97 20 124/72 (89) 97 98.3 04/29/24 20:00 Nasal Cannula* 3 32 Total Intake and Output 04/29/24 04/29/24 04/30/24 15:00 23:00 07:00 Intake Total 100 ml 800 ml 3130 ml Output Total 600 ml Balance 100 ml 800 ml 2530 ml medications Current Medications Medications Dose Ordered Sig/Clarence Route Start Time Stop Time Status Last Admin Dose Admin Piperacillin Sod/ Tazobactam Sod 100 ml @ 25 mls/hr Q8HR IV 04/26/24 22:00 04/30/24 05:34 25 MLS/HR Albuterol 2.5 mg Q4HPRN PRN NEB 04/26/24 19:15 Cancel Ipratropium [place] 0.5 mg Q4HPRN PRN NEB 04/26/24 19:15 Cancel Famotidine 20 mg DAILY IV 04/27/24 10:00 04/29/24 10:37 20 MG Ondansetron HCl 4 mg Q4HP PRN IV 04/26/24 19:15 04/27/24 14:01 4 MG Docusate Sodium 100 mg BIDPRN PRN PO 04/26/24 19:15 Nitroglycerin 0.4 mg Q5MINP PRN SL 04/26/24 21:00 Morphine Sulfate 2 mg Q30M PRN IV 04/26/24 21:00 04/27/24 10:31 2 MG Thiamine HCl 100 mg DAILY PO 04/27/24 10:00 04/29/24 10:37 100 MG Folic Acid 1 mg DAILY PO 04/27/24 10:00 04/29/24 10:37 1 MG Multivitamins/ Minerals 1 tab DAILY PO 04/27/24 10:00 04/29/24 10:37 1 TAB Morphine Sulfate 2 mg Q6HPRN PRN IV 04/27/24 10:30 04/28/24 01:22 2 MG Lorazepam 0.5 mg Q12HP PRN PO 04/27/24 17:30 04/27/24 19:10 0.5 MG Pantoprazole Sodium 40 mg DAILY IV 04/28/24 10:00 04/29/24 10:36 40 MG Fluoxetine HCl 20 mg DAILY PO 04/30/24 10:00 Montelukast Sodium 10 mg DAILY PO 04/30/24 10:00 Olanzapine 20 mg DAILY PO 04/30/24 10:00 Sodium Chloride 1,000 ml @ 100 mls/hr Q10H IV 04/29/24 13:00 04/29/24 20:00 100 MLS/HR Examination: LUNGS:Normal, CVS:Normal, MSK:Normal laboratory and microbiology Laboratory Tests 04/30/24 05:13 04/29/24 05:28 Test 04/30/24 05:13 Range/Units Serum Glucose 81 74-106 mg/dL Microbiology Date/Time Source Procedure Growth Status 04/28/24 20:07 Stool Clostridium difficile Toxin Assay - Final Complete 04/27/24 00:42 Nose MRSA Screen - Final Complete 04/26/24 17:29 Blood Blood Culture - Preliminary NO GROWTH AFTER 72 HOURS OF INCUBATION. Resulted Problem List/Assessment/Plan Problem List/Assessment/Plan Acute kidney injury secondary to dehydration Diarrhea rule out C diff Metabolic acidosis Hyponatremia due to hypotonic IV fluid Hypophosphatemia Transaminitis Recommendations Kidney function is improving Increased urine output Hyponatremia slowly and appropriately improving Strict I&Os IVF NS at 100 cc/hour KCL replacement Sodium phos 40 millimole IV piggyback Check urinalysis urine electrolytes We will continue to follow Plan discussed with: Patient My Orders My Orders Orders - RUBY UMAÑA MD Procedure Category Date Status Time Sodium Chloride 0.9% PHA 04/29/24 In Process 13:00 Hepatitis C Antibody LAB 04/29/24 In Process 13:01 Hepatitis B Surface LAB 04/29/24 In Process Antigen 13:01 Dietary Evaluation Review Comments: 1. Pt not to go >7 days of NPO/CL diet only -> Currently DAY 3 2. Monitor bowel function; noted +BM and flatus w/ bowel sounds 3. Suggest diet advancement as medically able to low-residue diet 4. If unable to advance diet or prolonged period of NPO expected, recommend TPN w/ 1680 ml total vol, 60 gm lipid, 100 gm AA, 350 gm D (provides 2190 kcal) + standard electrolytes; advance to goal per pharmacy discretion Expected Outcomes/Goals: Improved nutritional status, weight maintenance. RUBY UMAÑA MD Apr 30, 2024 10:41
[2024-04-30] MEDS: FLUoxetine HCL 20 MG CAP PO SCH (10:50)
[2024-04-30] MEDS: OLANZapine 5 MG TAB PO SCH (10:51)
[2024-04-30] MEDS: MONTELUKAST SODIUM 10 MG TAB PO SCH (10:51)
[2024-04-30] MEDS ORDERED: SUCRALFATE 1 GM/10 ML ORAL SUSP GT SCH (11:45)
[2024-04-30] MEDS ORDERED: DIPHENOXYLATE W/ATROPINE 2.5 MG TAB PO PRN (11:45)
--- NOTE | 2024-04-30 11:47 | DVHPN2 ---
Subjective Patient continues to have persistent diarrhea. Reviewed: Care Plan, H&P, Labs, Medications, Previous Orders Changes from previous H/P or p: No Changes General: Per HPI Eyes: No Pain, No Vision change, No Conjunctivae inflammation, No Eyelid inflammation, No Other, No Redness ENT: No Ear pain, No Ear discharge, No Nose pain, No Nose discharge, No Nose congestion, No Mouth pain, No Mouth swelling, No Throat pain, No Throat swelling, No Other Cardiovascular: No Chest Pain, No Palpitations, No Orthopnea, No Paroxysmal Noc. Dyspnea, No Edema, No Lt Headedness; Other (Hypotension) Respiratory: No Cough, No Dry, No Shortness of breath, No SOB with excertion, No Wheezing, No Hemoptysis, No Pleuritic Pain, No Sputum, No Other Gastrointestinal: No Nausea, No Vomiting; Abdominal Pain; No Diarrhea, No Constipation, No Melena, No Hematochezia, No Other Genitourinary: No Dysuria, No Frequency, No Incontinence, No Hematuria, No Retention, No Other Musculoskeletal: No other, No neck pain, No shoulder pain, No arm pain, No back pain, No hand pain, No leg pain, No foot pain Skin: No Rash, No Lesions, No Jaundice; Bruising (Skin); No Other Objective Vitals Vital Signs Date Time Temp Pulse Resp B/P (MAP) Pulse Ox O2 Delivery O2 Flow Rate FiO2 04/30/24 10:00 94 Nasal Cannula* 3 32 04/30/24 08:46 98.3 97 20 124/72 (89) 98.3 Intake/Output Intake and Output 04/30/24 07:00 Intake Total 4030 ml Output Total 600 ml Balance 3430 ml Intake Oral 2900 ml IV Total 1130 ml Output Urine Total 600 ml # Bowel Movements 16 General Appearance: Alert, Oriented X3, Cooperative, No acute distress HEENT: Atraumatic Lungs: Clear to auscultation, Normal air movement Cardiovascular: Regular rate, Normal S1, Normal S2 Abdomen: Normal bowel sounds, Soft, No tenderness, Other Genitourinary: No Apparent Abnormalities Skin: Dry, Intact, Other (Ecchymosis to left buttock and thigh) Psych/Mental Status: Mental status NL, Mood NL Medications Current Medications Medications Dose Ordered Sig/Clarence Route Start Time Stop Time Status Last Admin Dose Admin Piperacillin Sod/ Tazobactam Sod 100 ml @ 25 mls/hr Q8HR IV 04/26/24 22:00 04/30/24 05:34 25 MLS/HR Albuterol 2.5 mg Q4HPRN PRN NEB 04/26/24 19:15 Cancel Ipratropium [place] 0.5 mg Q4HPRN PRN NEB 04/26/24 19:15 Cancel Famotidine 20 mg DAILY IV 04/27/24 10:00 04/30/24 10:49 20 MG Ondansetron HCl 4 mg Q4HP PRN IV 04/26/24 19:15 04/27/24 14:01 4 MG Docusate Sodium 100 mg BIDPRN PRN PO 04/26/24 19:15 Nitroglycerin 0.4 mg Q5MINP PRN SL 04/26/24 21:00 Morphine Sulfate 2 mg Q30M PRN IV 04/26/24 21:00 04/27/24 10:31 2 MG Thiamine HCl 100 mg DAILY PO 04/27/24 10:00 04/30/24 10:50 100 MG Folic Acid 1 mg DAILY PO 04/27/24 10:00 04/30/24 10:49 1 MG Multivitamins/ Minerals 1 tab DAILY PO 04/27/24 10:00 04/30/24 10:49 1 TAB Morphine Sulfate 2 mg Q6HPRN PRN IV 04/27/24 10:30 04/28/24 01:22 2 MG Lorazepam 0.5 mg Q12HP PRN PO 04/27/24 17:30 04/27/24 19:10 0.5 MG Pantoprazole Sodium 40 mg DAILY IV 04/28/24 10:00 04/30/24 10:49 40 MG Fluoxetine HCl 20 mg DAILY PO 04/30/24 10:00 04/30/24 10:50 20 MG Montelukast Sodium 10 mg DAILY PO 04/30/24 10:00 04/30/24 10:51 10 MG Olanzapine 20 mg DAILY PO 04/30/24 10:00 04/30/24 10:51 20 MG Sodium Chloride 1,000 ml @ 100 mls/hr Q10H IV 04/29/24 13:00 04/29/24 20:00 100 MLS/HR Laboratory Results Laboratory Tests 04/29/24 05:28 04/30/24 05:13 Chemistry Test 04/30/24 05:13 Calcium Level 9.2 mg/dL (8.7-10.4) Urinalysis Test 04/30/24 04:20 Urine Color Straw (Yellow) Urine Clarity Clear (Clear) Urine pH 6.5 (5.0-9.0) Urine Specific [place] 1.003 (1.001-1.035) Urine Protein Negative (Negative) Urine Ketones Negative (Negative) Urine Blood Negative /uL (Negative) Urine Nitrite Negative (Negative) Urine Bilirubin Negative (Negative) Urine Urobilinogen Normal mg/dL (Negative) Urine Leukocyte Esterase Negative /uL (Negative) Urine RBC None seen /hpf (0 - 3) Urine Microscopic WBC /HPF (0-3) Urine Squamous Epithelial Cells None seen /hpf (<5) Urine Bacteria None seen /hpf (None Seen) Urine Creatinine 11.96 mg/dL (30.0-125.0) L Urine Protein/Creatinine Ratio 0.50 Urine Sodium 17 mmol/L (40-220) L Urine Glucose Normal mg/dL (Normal) Urine Total Protein < 6.0 mg/dL (1-14) Microbiology Microbiology Date/Time Source Procedure Growth Status 04/28/24 20:07 Stool Clostridium difficile Toxin Assay - Final Complete 04/27/24 00:42 Nose MRSA Screen - Final Complete 04/26/24 17:29 Blood Blood Culture - Preliminary NO GROWTH AFTER 72 HOURS OF INCUBATION. Resulted Labs and/or images reviewed: Labs reviewed by me, Image(s) reviewed by me Assessment/Plan Assessment/Plan Impression: -probable small bowel obstruction -sepsis probably secondary to enteritis/colitis -acute kidney injury, vasomotor nephropathy -hyperkalemia -schizophrenia -primary hypertension -septic shock, resolved Plan: Events: Patient continues to have multiple loose BMs. Initial C diff, inconclusive. Repeat C diff is currently pending. Patient will be started on Questran as well as Lomotil. -continue regular diet -change Protonix 40 mg IV b.i.d.. Carafate 1 g b.i.d. -C diff pending -continue antibiotic therapy with Zosyn -continue IV hydration -repeat labs in a.m. Total time spent with patient discussing and formulating plan of care: 35 minutes. This medical document was created using an electronic medical record system with Dragon computerized dictation system. Although this document has been carefully reviewed, there may still be some phonetic and typographical errors. These areas are purely typographical due to imperfections of the software programs, and do not reflect any compromise in the patient's medical care. Plan discussed with: Patient, Other (RN) My Orders Orders - KARSTEN CAST NP Procedure Category Date Status Time Mechanical Soft Diet DIET 04/29/24 Transmitted Lunch Transfer Orders XFER 04/29/24 Transmitted 11:52 Pantoprazole PHA 04/30/24 Verified (Protonix) 22:00 Sucralfate Susp PHA 04/30/24 Verified (Carafate Susp) 11:45 Diphenoxylate/Atropine PHA 04/30/24 Verified Tablet (Lomotil T 11:45 Cholestyramine Powder PHA 04/30/24 Verified (Questran Powder) 11:45 Basic Metabolic Panel LAB 05/01/24 Verified 04:00 Date of Service: Apr 30, 2024 Billing Provider: KARSTEN CAST NP Common Visit Codes: [id number] INP/OBS CARE(HIGH) KARSTEN CAST NP Apr 30, 2024 11:47
--- NOTE | 2024-04-30 12:24 | DVHPN2 ---
Progress Note - Dictate Date Seen: Apr 30, 2024 Medical Necessity Reason Pt with a Central, PICC or Fol: No Subjective PT WITH ABD PAIN ABD DISTENSION STOOL IMPACTION HYPOTENSION LEUKOCYTOSIS WITH LEFT SHIFT LEUKOCYTOSIS PROFILE IMPROVING NOW PT WITH BOWEL EMPTYING SX ARE IMPROVING HX OF CAD EF45% COPD/ ON HOME O2 TOBACCO USE ETOH USE HX OF GASTROPARESIS PAD Right lower extremity angiography revealed: * Right common iliac without any flow restrictive lesion. * Right external and internal iliac without any flow restrictive lesion. * Right common femoral without any flow restrictive lesion. * Right profunda and superficial femoral artery without any flow restrictive lesion. * Right popliteal, tibioperoneal trunk, anterior tibial, posterior tibial and the peroneal arteries were all patent all the way down to the ankle. Left lower extremity angiography revealed: * Left common iliac without any flow restrictive lesion. * Left common external and internal iliacs without any flow restrictive lesion. * Left common femoral without any flow restrictive lesion. * Left profunda and superficial femoral artery without any flow restrictive lesion. * Left popliteal, tibioperoneal trunk, posterior tibial and the peroneal arteries without any flow restrictive lesion. * Anterior tibial, however, is occluded at the level of the ankle. Unable to revascularize because of collateral circulation both from the posterior tibial and peroneal arteries. Furthermore, because of the heart rate that he has, I believe that is what compromises his circulation. At this time, the patient is having adequate supply to the ankle. There is no indication for revascularization of the anterior tibial at this time, especially with collateral circulation. Conservative medical management will be implemented. NATACHA/ WITH MULTIPLE ANKLE SURGERIES DEPRESSION HTN vital signs Vital Sign Date Time Temp Pulse Resp B/P (MAP) Pulse Ox O2 Delivery O2 Flow Rate FiO2 04/30/24 10:00 94 Nasal Cannula* 3 32 04/30/24 08:46 98.3 97 20 124/72 (89) 98.3 Total Intake and Output 04/29/24 04/29/24 04/30/24 15:00 23:00 07:00 Intake Total 100 ml 800 ml 3130 ml Output Total 600 ml Balance 100 ml 800 ml 2530 ml medications Current Medications Medications Dose Ordered Sig/Clarence Route Start Time Stop Time Status Last Admin Dose Admin Piperacillin Sod/ Tazobactam Sod 100 ml @ 25 mls/hr Q8HR IV 04/26/24 22:00 04/30/24 05:34 25 MLS/HR Albuterol 2.5 mg Q4HPRN PRN NEB 04/26/24 19:15 Cancel Ipratropium [place] 0.5 mg Q4HPRN PRN NEB 04/26/24 19:15 Cancel Ondansetron HCl 4 mg Q4HP PRN IV 04/26/24 19:15 04/27/24 14:01 4 MG Docusate Sodium 100 mg BIDPRN PRN PO 04/26/24 19:15 Nitroglycerin 0.4 mg Q5MINP PRN SL 04/26/24 21:00 Morphine Sulfate 2 mg Q30M PRN IV 04/26/24 21:00 04/27/24 10:31 2 MG Thiamine HCl 100 mg DAILY PO 04/27/24 10:00 04/30/24 10:50 100 MG Folic Acid 1 mg DAILY PO 04/27/24 10:00 04/30/24 10:49 1 MG Multivitamins/ Minerals 1 tab DAILY PO 04/27/24 10:00 04/30/24 10:49 1 TAB Morphine Sulfate 2 mg Q6HPRN PRN IV 04/27/24 10:30 04/28/24 01:22 2 MG Lorazepam 0.5 mg Q12HP PRN PO 04/27/24 17:30 04/27/24 19:10 0.5 MG Fluoxetine HCl 20 mg DAILY PO 04/30/24 10:00 04/30/24 10:50 20 MG Montelukast Sodium 10 mg DAILY PO 04/30/24 10:00 04/30/24 10:51 10 MG Olanzapine 20 mg DAILY PO 04/30/24 10:00 04/30/24 10:51 20 MG Sodium Chloride 1,000 ml @ 100 mls/hr Q10H IV 04/29/24 13:00 04/30/24 09:00 100 MLS/HR Pantoprazole Sodium 40 mg BID IV 04/30/24 22:00 Sucralfate 1 gm BID@0600,2200 GT 04/30/24 11:45 Enoxaparin Sodium 40 mg DAILY SC 05/01/24 10:00 UNV Cholestyramine Resin 4 gm Q12HR@11,23 GT 04/30/24 23:00 Diphenoxylate HCl/ Atropine 2.5 mg PRN PRN PO 04/30/24 12:00 Metronidazole 500 mg Q8HR PO 04/30/24 14:00 laboratory and microbiology Laboratory Tests 04/30/24 05:13 04/29/24 05:28 Test 04/30/24 05:13 Range/Units Serum Glucose 81 74-106 mg/dL Problem List ABD PAIN ABD DISTENSION STOOL IMPACTION HYPOTENSION LEUKOCYTOSIS WITH LEFT SHIFT LEUKOCYTOSIS PROFILE IMPROVING NOW PT WITH BOWEL EMPTYING SX ARE IMPROVING HX OF CAD EF45% COPD/ ON HOME O2 TOBACCO USE ETOH USE HX OF GASTROPARESIS PAD Right lower extremity angiography revealed: * Right common iliac without any flow restrictive lesion. * Right external and internal iliac without any flow restrictive lesion. * Right common femoral without any flow restrictive lesion. * Right profunda and superficial femoral artery without any flow restrictive lesion. * Right popliteal, tibioperoneal trunk, anterior tibial, posterior tibial and the peroneal arteries were all patent all the way down to the ankle. Left lower extremity angiography revealed: * Left common iliac without any flow restrictive lesion. * Left common external and internal iliacs without any flow restrictive lesion. * Left common femoral without any flow restrictive lesion. * Left profunda and superficial femoral artery without any flow restrictive lesion. * Left popliteal, tibioperoneal trunk, posterior tibial and the peroneal arteries without any flow restrictive lesion. * Anterior tibial, however, is occluded at the level of the ankle. Unable to revascularize because of collateral circulation both from the posterior tibial and peroneal arteries. Furthermore, because of the heart rate that he has, I believe that is what compromises his circulation. At this time, the patient is having adequate supply to the ankle. There is no indication for revascularization of the anterior tibial at this time, especially with collateral circulation. Conservative medical management will be implemented. NATACHA/ WITH MULTIPLE ANKLE SURGERIES DEPRESSION HTN Assessment/Plan ABX IV FLUIDS CORRECT LYTES KUB OBSTRUCTION RESOLVED LEUKOCYTOSIS RESOLVED MAY DC HOME Dietary Evaluation Review Comments: 1. Pt not to go >7 days of NPO/CL diet only -> Currently DAY 3 2. Monitor bowel function; noted +BM and flatus w/ bowel sounds 3. Suggest diet advancement as medically able to low-residue diet 4. If unable to advance diet or prolonged period of NPO expected, recommend TPN w/ 1680 ml total vol, 60 gm lipid, 100 gm AA, 350 gm D (provides 2190 kcal) + standard electrolytes; advance to goal per pharmacy discretion Expected Outcomes/Goals: Improved nutritional status, weight maintenance. Plan discussed with: Patient ROBERT CHRISTENSEN MD Apr 30, 2024 12:24
[2024-04-30] MEDS: CHOLESTYRAMINE 4 GM POWDER PO ONE (14:17)
[2024-04-30] MEDS: SUCRALFATE 1 GM/10 ML ORAL SUSP PO ONE (14:17)
[2024-04-30] MEDS: metroNIDAZOLE 500 MG TAB PO SCH (14:21)
[2024-04-30] MEDS: SODIUM PHOSPHATES 40 MEQ in D5W 5% 250 ML IV ONE (14:36)
[2024-04-30] MEDS: DIPHENOXYLATE W/ATROPINE 2.5 MG TAB PO PRN (16:54)
--- NOTE | 2024-04-30 18:46 | DVHPN2 ---
Progress Note Date Seen: Apr 30, 2024 Medical Necessity Reason Pt with a Central, PICC or Fol: No Objective vital signs Vital Sign Date Time Temp Pulse Resp B/P (MAP) Pulse Ox O2 Delivery O2 Flow Rate FiO2 04/30/24 12:39 98.9 98 18 140/97 (111) 99 98.9 04/30/24 10:00 Nasal Cannula* 3 32 Total Intake and Output 04/29/24 04/29/24 04/30/24 15:00 23:00 07:00 Intake Total 100 ml 800 ml 3130 ml Output Total 600 ml Balance 100 ml 800 ml 2530 ml medications Current Medications Medications Dose Ordered Sig/Clarence Route Start Time Stop Time Status Last Admin Dose Admin Piperacillin Sod/ Tazobactam Sod 100 ml @ 25 mls/hr Q8HR IV 04/26/24 22:00 04/30/24 14:17 25 MLS/HR Albuterol 2.5 mg Q4HPRN PRN NEB 04/26/24 19:15 Cancel Ipratropium [place] 0.5 mg Q4HPRN PRN NEB 04/26/24 19:15 Cancel Ondansetron HCl 4 mg Q4HP PRN IV 04/26/24 19:15 04/27/24 14:01 4 MG Docusate Sodium 100 mg BIDPRN PRN PO 04/26/24 19:15 Nitroglycerin 0.4 mg Q5MINP PRN SL 04/26/24 21:00 Morphine Sulfate 2 mg Q30M PRN IV 04/26/24 21:00 04/27/24 10:31 2 MG Thiamine HCl 100 mg DAILY PO 04/27/24 10:00 04/30/24 10:50 100 MG Folic Acid 1 mg DAILY PO 04/27/24 10:00 04/30/24 10:49 1 MG Multivitamins/ Minerals 1 tab DAILY PO 04/27/24 10:00 04/30/24 10:49 1 TAB Lorazepam 0.5 mg Q12HP PRN PO 04/27/24 17:30 04/27/24 19:10 0.5 MG Fluoxetine HCl 20 mg DAILY PO 04/30/24 10:00 04/30/24 10:50 20 MG Montelukast Sodium 10 mg DAILY PO 04/30/24 10:00 04/30/24 10:51 10 MG Olanzapine 20 mg DAILY PO 04/30/24 10:00 04/30/24 10:51 20 MG Sodium Chloride 1,000 ml @ 100 mls/hr Q10H IV 04/29/24 13:00 04/30/24 14:39 100 MLS/HR Pantoprazole Sodium 40 mg BID IV 04/30/24 22:00 Enoxaparin Sodium 40 mg DAILY SC 05/01/24 10:00 Cholestyramine Resin 4 gm Q12HR@11,23 GT 04/30/24 23:00 Diphenoxylate HCl/ Atropine 2.5 mg PRN PRN PO 04/30/24 12:00 04/30/24 16:54 2.5 MG Metronidazole 500 mg Q8HR PO 04/30/24 14:00 04/30/24 14:21 500 MG Sucralfate 1 gm BID@0600,2200 PO 04/30/24 22:00 Morphine Sulfate 2 mg Q6HPRN PRN IV 04/30/24 15:30 Tramadol HCl 50 mg Q8HPRN PRN PO 04/30/24 15:30 laboratory and microbiology Laboratory Tests 04/30/24 05:13 04/29/24 05:28 Test 04/30/24 05:13 Range/Units Serum Glucose 81 74-106 mg/dL Microbiology Date/Time Source Procedure Growth Status 04/28/24 20:07 Stool Clostridium difficile Toxin Assay - Final Complete 04/27/24 00:42 Nose MRSA Screen - Final Complete 04/26/24 17:29 Blood Blood Culture - Preliminary NO GROWTH AFTER 72 HOURS OF INCUBATION. Resulted Problem List/Assessment/Plan Problem List/Assessment/Plan AFEBRILE VSS NO INCREASING ABD PAIN BM + FLATUS + DIARRHEA WBC TRENDING DOWN WNL ABD SOFT LESS TENDER MORE IN THE LLQ HIGH RISK FOR SURGERY ONGOING RESUSCITATION CONTINUE CLOSE OBSERVATION CONSIDER EMERGENT SURGERY BASED ON ONGOING EVAL AND RESUSCITATION NURSE AT BEDSIDE REPEAT CT SCAN ABD PELVIS WITH PO CONTRAST AM REPEAT LABS AM Plan discussed with: Patient Dietary Evaluation Review Comments: 1. Pt not to go >7 days of NPO/CL diet only -> Currently DAY 3 2. Monitor bowel function; noted +BM and flatus w/ bowel sounds 3. Suggest diet advancement as medically able to low-residue diet 4. If unable to advance diet or prolonged period of NPO expected, recommend TPN w/ 1680 ml total vol, 60 gm lipid, 100 gm AA, 350 gm D (provides 2190 kcal) + standard electrolytes; advance to goal per pharmacy discretion Expected Outcomes/Goals: Improved nutritional status, weight maintenance. SENTHIL DIAZ MD Apr 30, 2024 18:46
[2024-04-30] MEDS: traMADol HCL 50 MG TAB PO PRN (20:32)
[2024-04-30] MEDS: SUCRALFATE 1 GM/10 ML ORAL SUSP PO SCH (21:13)
[2024-04-30] MEDS: PANTOPRAZOLE 40 MG/10 ML VIAL INJ IV SCH (21:14)
[2024-04-30] MEDS: CHOLESTYRAMINE 4 GM POWDER GT SCH (22:11)
[2024-05-01 05:00] VITALS: BP 128/83; PULSE 82; RESP 17; TEMP 98.1; O2SAT 95
[2024-05-01 05:41] LABS: Hematocrit 36.9 % (41.0-53.0); Hemoglobin 12.9 g/dL (13.5-17.5); Mean Corpuscular Hemoglobin 32.3 pg (28.0-32.0); Mean Corpuscular Volume 92.3 fL (80.0-100.0); Platelet Count (auto) 239 10^3/uL (140-450); White Blood Cell 9.1 10^3/uL (4.4-10.8)
[2024-05-01 05:43] LABS: Band Neutrophils % (manual) 0; Basophils % (manual) 0 (0.0-2.0); Blast Cells 0; Metamyelocytes % 0; Myelocytes % 0; Promyelocytes % 0; Reactive Lymphocytes 0
[2024-05-01 05:57] LABS: Alanine Aminotransferase 33 U/L (7-40); Alkaline Phosphatase 97 U/L (46-116); Anion Gap 5 (5-15); BUN/Creatinine Ratio 8.8 (10.0-20.0); Carbon Dioxide 27 mmol/L (20-31); Chloride 100 mmol/L (98-107); Total Protein 5.7 g/dL (5.7-8.2)
[2024-05-01 05:58] LABS: Albumin 3.8 g/dL (3.2-4.8); Aspartate Aminotransferase 40 U/L (13-40); Bilirubin, Total 0.5 mg/dL (0.2-1.0)
[2024-05-01 06:00] LABS: Blood Urea Nitrogen 5 mg/dL (9-23); Calcium 8.6 mg/dL (8.7-10.4); Glucose 107 mg/dL (74-106); Potassium 3.2 mmol/L (3.5-5.1); Sodium 132 mmol/L (136-145)
[2024-05-01 06:49] LABS: Eosinophils % (manual) 1 (0-7); Lymphocytes % (manual) 20 (10.0-50.0); Monocytes % (manual) 16 (0-12); Platelet Estimate Adequate
[2024-05-01] MEDS ORDERED: GASTROGRAFIN 30 ML SOL ONE (08:10)
[2024-05-01 09:00] VITALS: BP 129/81; PULSE 86; RESP 18; TEMP 97.5; O2SAT 97
[2024-05-01 10:05] VITALS: O2SAT 97
[2024-05-01] MEDS: ENOXAPARIN SOD 40 MG/0.4 ML SYRINGE SC SCH (10:06)
[2024-05-01 10:59] LABS: Hepatitis B Surface Antigen Negative (Negative); Hepatitis C Antibody Negative (Negative)
--- NOTE | 2024-05-01 11:14 | DVHPN2 ---
Progress Note Date Seen: May 01, 2024 Resident Creating Document: JESUS PARSONS RESIDENT Medical Necessity Reason Pt with a Central, PICC or Fol: No Subjective Review of Systems 59-year-old male presented to ER with abdominal pain, in epigastric area that was constant and nonradiating, Patient admits to pain having improved at this time. No nausea or vomiting. No hematemesis, Patient does complain of loose stool, one stool per hour per patient. No melena or red blood in stool, No recent antibiotic use per patient, Patient admits to having a poor appetite at this time. Patient is still complaining of diarrhea and mild abdominal pain. Objective vital signs Vital Sign Date Time Temp Pulse Resp B/P (MAP) Pulse Ox O2 Delivery O2 Flow Rate FiO2 05/01/24 09:00 97.5 86 18 129/81 (97) 97 97.5 05/01/24 08:05 Room Air* 0 21 Total Intake and Output 04/30/24 04/30/24 05/01/24 15:00 23:00 07:00 Intake Total 1500 ml 2000 ml Balance 1500 ml 2000 ml medications Current Medications Medications Dose Ordered Sig/Clarence Route Start Time Stop Time Status Last Admin Dose Admin Piperacillin Sod/ Tazobactam Sod 100 ml @ 25 mls/hr Q8HR IV 04/26/24 22:00 05/01/24 05:04 25 MLS/HR Albuterol 2.5 mg Q4HPRN PRN NEB 04/26/24 19:15 Cancel Ipratropium [place] 0.5 mg Q4HPRN PRN NEB 04/26/24 19:15 Cancel Ondansetron HCl 4 mg Q4HP PRN IV 04/26/24 19:15 04/27/24 14:01 4 MG Nitroglycerin 0.4 mg Q5MINP PRN SL 04/26/24 21:00 Morphine Sulfate 2 mg Q30M PRN IV 04/26/24 21:00 04/27/24 10:31 2 MG Thiamine HCl 100 mg DAILY PO 04/27/24 10:00 05/01/24 10:06 100 MG Folic Acid 1 mg DAILY PO 04/27/24 10:00 05/01/24 10:06 1 MG Multivitamins/ Minerals 1 tab DAILY PO 04/27/24 10:00 05/01/24 10:06 1 TAB Lorazepam 0.5 mg Q12HP PRN PO 04/27/24 17:30 04/27/24 19:10 0.5 MG Fluoxetine HCl 20 mg DAILY PO 04/30/24 10:00 05/01/24 10:06 20 MG Montelukast Sodium 10 mg DAILY PO 04/30/24 10:00 05/01/24 10:06 10 MG Olanzapine 20 mg DAILY PO 04/30/24 10:00 05/01/24 10:06 20 MG Pantoprazole Sodium 40 mg BID IV 04/30/24 22:00 05/01/24 10:05 40 MG Enoxaparin Sodium 40 mg DAILY SC 05/01/24 10:00 05/01/24 10:06 40 MG Cholestyramine Resin 4 gm Q12HR@11,23 GT 04/30/24 23:00 04/30/24 22:11 4 GM Diphenoxylate HCl/ Atropine 2.5 mg PRN PRN PO 04/30/24 12:00 04/30/24 20:31 2.5 MG Metronidazole 500 mg Q8HR PO 04/30/24 14:00 05/01/24 05:03 500 MG Sucralfate 1 gm BID@0600,2200 PO 04/30/24 22:00 04/30/24 21:13 1 GM Morphine Sulfate 2 mg Q6HPRN PRN IV 04/30/24 15:30 Tramadol HCl 50 mg Q8HPRN PRN PO 04/30/24 15:30 05/01/24 05:03 50 MG Potassium Chloride/Dextrose/ Sod Cl 1,000 ml @ 120 mls/hr Q8H20M IV 05/01/24 09:45 Examination GENERAL: Not in acute distress. HEENT: EOMI, Moist mucous membranes. No scleral icterus. No cervical lymphadenopathy. LUNGS: Clear to auscultation bilaterally. No accessory muscle use. CARDIOVASCULAR: Regular rate and rhythm. No murmur. No JVD. ABDOMEN: Soft, and nondistended. Mild tenderness, Bowel sounds hyperactive. EXTREMITIES: No edema. Nontender. SKIN: No rashes or lesions. Warm. NEUROLOGIC: Alert and oriented X3 laboratory and microbiology Laboratory Tests 05/01/24 05:09 Test 05/01/24 05:09 Range/Units Serum Glucose 107 H 74-106 mg/dL Microbiology Date/Time Source Procedure Growth Status 04/30/24 15:04 Stool Stool Culture - Preliminary Resulted 04/30/24 15:04 Stool Shiga Toxin I & II Pending Resulted 04/27/24 00:42 Nose MRSA Screen - Final Complete 04/26/24 17:29 Blood Blood Culture - Preliminary NO GROWTH AFTER 72 HOURS OF INCUBATION. Resulted Problem List/Assessment/Plan Problem List/Assessment/Plan # Ruled out small bowel obstruction # sepsis probably secondary to enteritis/colitis # ALEXANDRA, vasomotor nephropathy # hyperkalemia # schizophrenia # primary hypertension # Diarrhea Plan - Having multiple BMs. Repeat KUB negative for any type of obstruction. - continue antibiotics -stool for C diff since last test was incomplete - repeat C diff, sample already collected. Result pending - continue cholestyramine b.i.d. - continue Lomotil 2.5 p.r.n. after each bowel movement -continue Flagyl 500 mg Q 8 hours - continue IV hydration - stool for WBC: Few -Advance diet as tolerated Thank you so much for the opportunity to consult on your patient. GI team will follow the patient. In case of any questions or concerns please feel free to reach out. Case discussed with Dr. Terrence Meza. The patient and caregiver team agreed to the plan. Plan discussed with: Patient Dietary Evaluation Review Comments: 1. Pt not to go >7 days of NPO/CL diet only -> Currently DAY 3 2. Monitor bowel function; noted +BM and flatus w/ bowel sounds 3. Suggest diet advancement as medically able to low-residue diet 4. If unable to advance diet or prolonged period of NPO expected, recommend TPN w/ 1680 ml total vol, 60 gm lipid, 100 gm AA, 350 gm D (provides 2190 kcal) + standard electrolytes; advance to goal per pharmacy discretion Expected Outcomes/Goals: Improved nutritional status, weight maintenance. JESUS PARSONS RESIDENT May 01, 2024 11:14
[2024-05-01] MEDS: D5W/SOD CHL 0.9%/KCL 40MEQ 1,000 ML IV SCH (11:24)
--- NOTE | 2024-05-01 11:40 | DVHPN2 ---
Progress Note Date Seen: May 01, 2024 Medical Necessity Reason Pt with a Central, PICC or Fol: No Subjective Patient reports: No new complaints Other Systems: Patient seen and examined by myself today in follow-up Objective vital signs Vital Sign Date Time Temp Pulse Resp B/P (MAP) Pulse Ox O2 Delivery O2 Flow Rate FiO2 05/01/24 09:00 97.5 86 18 129/81 (97) 97 97.5 05/01/24 08:05 Room Air* 0 21 Total Intake and Output 04/30/24 04/30/24 05/01/24 15:00 23:00 07:00 Intake Total 1500 ml 2000 ml Balance 1500 ml 2000 ml medications Current Medications Medications Dose Ordered Sig/Clarence Route Start Time Stop Time Status Last Admin Dose Admin Piperacillin Sod/ Tazobactam Sod 100 ml @ 25 mls/hr Q8HR IV 04/26/24 22:00 05/01/24 05:04 25 MLS/HR Albuterol 2.5 mg Q4HPRN PRN NEB 04/26/24 19:15 Cancel Ipratropium [place] 0.5 mg Q4HPRN PRN NEB 04/26/24 19:15 Cancel Ondansetron HCl 4 mg Q4HP PRN IV 04/26/24 19:15 04/27/24 14:01 4 MG Nitroglycerin 0.4 mg Q5MINP PRN SL 04/26/24 21:00 Morphine Sulfate 2 mg Q30M PRN IV 04/26/24 21:00 04/27/24 10:31 2 MG Thiamine HCl 100 mg DAILY PO 04/27/24 10:00 05/01/24 10:06 100 MG Folic Acid 1 mg DAILY PO 04/27/24 10:00 05/01/24 10:06 1 MG Multivitamins/ Minerals 1 tab DAILY PO 04/27/24 10:00 05/01/24 10:06 1 TAB Lorazepam 0.5 mg Q12HP PRN PO 04/27/24 17:30 04/27/24 19:10 0.5 MG Fluoxetine HCl 20 mg DAILY PO 04/30/24 10:00 05/01/24 10:06 20 MG Montelukast Sodium 10 mg DAILY PO 04/30/24 10:00 05/01/24 10:06 10 MG Olanzapine 20 mg DAILY PO 04/30/24 10:00 05/01/24 10:06 20 MG Pantoprazole Sodium 40 mg BID IV 04/30/24 22:00 05/01/24 10:05 40 MG Enoxaparin Sodium 40 mg DAILY SC 05/01/24 10:00 05/01/24 10:06 40 MG Cholestyramine Resin 4 gm Q12HR@11,23 GT 04/30/24 23:00 04/30/24 22:11 4 GM Diphenoxylate HCl/ Atropine 2.5 mg PRN PRN PO 04/30/24 12:00 04/30/24 20:31 2.5 MG Metronidazole 500 mg Q8HR PO 04/30/24 14:00 05/01/24 05:03 500 MG Sucralfate 1 gm BID@0600,2200 PO 04/30/24 22:00 04/30/24 21:13 1 GM Morphine Sulfate 2 mg Q6HPRN PRN IV 04/30/24 15:30 Tramadol HCl 50 mg Q8HPRN PRN PO 04/30/24 15:30 05/01/24 05:03 50 MG Potassium Chloride/Dextrose/ Sod Cl 1,000 ml @ 120 mls/hr Q8H20M IV 05/01/24 09:45 05/01/24 11:24 120 MLS/HR Examination: LUNGS:Normal, CVS:Normal, MSK:Normal laboratory and microbiology Laboratory Tests 05/01/24 05:09 Test 05/01/24 05:09 Range/Units Serum Glucose 107 H 74-106 mg/dL Microbiology Date/Time Source Procedure Growth Status 04/30/24 15:04 Stool Stool Culture - Preliminary Resulted 04/30/24 15:04 Stool Shiga Toxin I & II Pending Resulted 04/27/24 00:42 Nose MRSA Screen - Final Complete 04/26/24 17:29 Blood Blood Culture - Preliminary NO GROWTH AFTER 72 HOURS OF INCUBATION. Resulted Problem List/Assessment/Plan Problem List/Assessment/Plan Acute kidney injury secondary to dehydration Diarrhea rule out C diff Metabolic acidosis Hyponatremia due to hypotonic IV fluid Hypophosphatemia Transaminitis Recommendations Kidney function resolved back to normal Increased urine output Hyponatremia slowly and appropriately improving Strict I&Os IVF NS at 100 cc/hour KCL replacement Sodium phos 40 millimole IV piggyback Check urinalysis urine electrolytes I will sign off this case, please reconsult as needed Thank you for the consult Plan discussed with: Patient Dietary Evaluation Review Comments: 1. Pt not to go >7 days of NPO/CL diet only -> Currently DAY 3 2. Monitor bowel function; noted +BM and flatus w/ bowel sounds 3. Suggest diet advancement as medically able to low-residue diet 4. If unable to advance diet or prolonged period of NPO expected, recommend TPN w/ 1680 ml total vol, 60 gm lipid, 100 gm AA, 350 gm D (provides 2190 kcal) + standard electrolytes; advance to goal per pharmacy discretion Expected Outcomes/Goals: Improved nutritional status, weight maintenance. RUBY UMAÑA MD May 01, 2024 11:40
--- NOTE | 2024-05-01 11:46 | DVH ---
CT ABDOMEN AND PELVIS WITHOUT CONTRAST CLINICAL HISTORY: R/O APPENDICITIS TECHNIQUE: Multiple contiguous axial images of the abdomen and pelvis without intravenous and with or al contrast. The images were reformatted degenerate coronal and sagittal reconstructions. All CT scans at this medical facility are performed using dose modulation techniques as appropriate t o a performed exam including the following:Automated exposure control was utilized; adjustment of the MA and/or KV according to patient size; and use of iterative reconstruction technique. Radiation Dose Information: CT Dose: CTDI volume is 13.91 mGy. Dose-length product is 685.33 mGy*cm Comparison: CT CT AB PEL WO CON-NO ORAL OR IV on DOS: 04/26/24, ECIDC on DOS: 01/10/22 FINDINGS: Evaluation of the abdomen and pelvis is limited without intravenous contrast. The liver, gallbladder, pancreas, kidneys, adrenal glands, and spleen appear within normal limits. There is no gross evidence of abdominal lymphadenopathy. There is no free fluid or free air. There is oral contrast seen in the stomach, small bowel loops in in the colon to the level of the spl enic flexure. The stomach grossly appears unremarkable. The small and large bowel loops demonstrate normal caliber and appear within normal limits.. There is partial visualization of appendix in the r ight lower quadrant which measures 6 mm diameter on the current study . There is no obvious mural th ickening or adjacent inflammatory changes. There are calcified atherosclerotic changes in the abdominal aorta. The IVC appears within normal li mits. The bladder appears unremarkable for the degree of distention. Pelvic organ appears within normal escobar its. There is no gross evidence of a pelvic mass. There is no free fluid collection. Lung bases are clear. There is no acute osseous abnormality. There are stable compression deformities of the T12 and L1 darrell tebral bodies. Are multilevel degenerative changes in the lumbar spine. IMPRESSION: 1. The appendix is partially visualized on the current study does not appear significantly dilated. There is no obvious mural thickening or adjacent inflammatory changes. HS:Y
--- NOTE | 2024-05-01 12:27 | DVHPN2 ---
Subjective Patient continues to have persistent diarrhea, but improved Reviewed: Care Plan, H&P, Labs, Medications, Previous Orders Changes from previous H/P or p: No Changes General: Per HPI Eyes: No Pain, No Vision change, No Conjunctivae inflammation, No Eyelid inflammation, No Other, No Redness ENT: No Ear pain, No Ear discharge, No Nose pain, No Nose discharge, No Nose congestion, No Mouth pain, No Mouth swelling, No Throat pain, No Throat swelling, No Other Cardiovascular: No Chest Pain, No Palpitations, No Orthopnea, No Paroxysmal Noc. Dyspnea, No Edema, No Lt Headedness; Other (Hypotension) Respiratory: No Cough, No Dry, No Shortness of breath, No SOB with excertion, No Wheezing, No Hemoptysis, No Pleuritic Pain, No Sputum, No Other Gastrointestinal: No Nausea, No Vomiting; Abdominal Pain; No Diarrhea, No Constipation, No Melena, No Hematochezia, No Other Genitourinary: No Dysuria, No Frequency, No Incontinence, No Hematuria, No Retention, No Other Musculoskeletal: No other, No neck pain, No shoulder pain, No arm pain, No back pain, No hand pain, No leg pain, No foot pain Skin: No Rash, No Lesions, No Jaundice; Bruising (Skin); No Other Objective Vitals Vital Signs Date Time Temp Pulse Resp B/P (MAP) Pulse Ox O2 Delivery O2 Flow Rate FiO2 05/01/24 10:05 97 Room Air 05/01/24 10:05 0 21 05/01/24 09:00 97.5 86 18 129/81 (97) 97.5 Intake/Output Intake and Output 05/01/24 07:00 Intake Total 3500 ml Balance 3500 ml Intake Oral 3400 ml IV Total 100 ml # Voids 25 # Bowel Movements 25 General Appearance: Alert, Oriented X3, Cooperative, No acute distress HEENT: Atraumatic, PERRLA Lungs: Clear to auscultation, Normal air movement Cardiovascular: Regular rate, Normal S1, Normal S2 Abdomen: Normal bowel sounds, Soft, No tenderness, Other Genitourinary: No Apparent Abnormalities Musculoskeletal: Normal sensory function, Normal motor function Skin: Dry, Intact, Other (Ecchymosis to left buttock and thigh) Psych/Mental Status: Mental status NL, Mood NL Medications Current Medications Medications Dose Ordered Sig/Clarence Route Start Time Stop Time Status Last Admin Dose Admin Piperacillin Sod/ Tazobactam Sod 100 ml @ 25 mls/hr Q8HR IV 04/26/24 22:00 05/01/24 05:04 25 MLS/HR Albuterol 2.5 mg Q4HPRN PRN NEB 04/26/24 19:15 Cancel Ipratropium [place] 0.5 mg Q4HPRN PRN NEB 04/26/24 19:15 Cancel Ondansetron HCl 4 mg Q4HP PRN IV 04/26/24 19:15 04/27/24 14:01 4 MG Nitroglycerin 0.4 mg Q5MINP PRN SL 04/26/24 21:00 Morphine Sulfate 2 mg Q30M PRN IV 04/26/24 21:00 04/27/24 10:31 2 MG Thiamine HCl 100 mg DAILY PO 04/27/24 10:00 05/01/24 10:06 100 MG Folic Acid 1 mg DAILY PO 04/27/24 10:00 05/01/24 10:06 1 MG Multivitamins/ Minerals 1 tab DAILY PO 04/27/24 10:00 05/01/24 10:06 1 TAB Lorazepam 0.5 mg Q12HP PRN PO 04/27/24 17:30 04/27/24 19:10 0.5 MG Fluoxetine HCl 20 mg DAILY PO 04/30/24 10:00 05/01/24 10:06 20 MG Montelukast Sodium 10 mg DAILY PO 04/30/24 10:00 05/01/24 10:06 10 MG Olanzapine 20 mg DAILY PO 04/30/24 10:00 05/01/24 10:06 20 MG Pantoprazole Sodium 40 mg BID IV 04/30/24 22:00 05/01/24 10:05 40 MG Enoxaparin Sodium 40 mg DAILY SC 05/01/24 10:00 05/01/24 10:06 40 MG Cholestyramine Resin 4 gm Q12HR@,23 GT 04/30/24 23:00 04/30/24 22:11 4 GM Diphenoxylate HCl/ Atropine 2.5 mg PRN PRN PO 04/30/24 12:00 04/30/24 20:31 2.5 MG Metronidazole 500 mg Q8HR PO 04/30/24 14:00 05/01/24 05:03 500 MG Sucralfate 1 gm BID@0600,2200 PO 04/30/24 22:00 04/30/24 21:13 1 GM Morphine Sulfate 2 mg Q6HPRN PRN IV 04/30/24 15:30 Tramadol HCl 50 mg Q8HPRN PRN PO 04/30/24 15:30 05/01/24 05:03 50 MG Potassium Chloride/Dextrose/ Sod Cl 1,000 ml @ 120 mls/hr Q8H20M IV 05/01/24 09:45 05/01/24 11:24 120 MLS/HR Laboratory Results Laboratory Tests 05/01/24 05:09 Chemistry Test 05/01/24 05:09 Albumin 3.8 g/dL (3.2-4.8) Calcium Level 8.6 mg/dL (8.7-10.4) L Total Protein 5.7 g/dL (5.7-8.2) LFT Test 05/01/24 05:09 Alanine Aminotransferase (ALT) 33 U/L (7-40) Alkaline Phosphatase 97 U/L (46-116) Aspartate Amino Transferase (AST) 40 U/L (13-40) Total Bilirubin 0.5 mg/dL (0.2-1.0) Urinalysis Test 04/30/24 04:20 Urine Color Straw (Yellow) Urine Clarity Clear (Clear) Urine pH 6.5 (5.0-9.0) Urine Specific [place] 1.003 (1.001-1.035) Urine Protein Negative (Negative) Urine Ketones Negative (Negative) Urine Blood Negative /uL (Negative) Urine Nitrite Negative (Negative) Urine Bilirubin Negative (Negative) Urine Urobilinogen Normal mg/dL (Negative) Urine Leukocyte Esterase Negative /uL (Negative) Urine RBC None seen /hpf (0 - 3) Urine Microscopic WBC /HPF (0-3) Urine Squamous Epithelial Cells None seen /hpf (<5) Urine Bacteria None seen /hpf (None Seen) Urine Creatinine 11.96 mg/dL (30.0-125.0) L Urine Protein/Creatinine Ratio 0.50 Urine Sodium 17 mmol/L (40-220) L Urine Glucose Normal mg/dL (Normal) Urine Total Protein < 6.0 mg/dL (1-14) Microbiology Microbiology Date/Time Source Procedure Growth Status 04/30/24 15:04 Stool Stool Culture - Preliminary Resulted 04/30/24 15:04 Stool Shiga Toxin I & II - Final Resulted 04/27/24 00:42 Nose MRSA Screen - Final Complete 04/26/24 17:29 Blood Blood Culture - Preliminary NO GROWTH AFTER 72 HOURS OF INCUBATION. Resulted Labs and/or images reviewed: Labs reviewed by me, Image(s) reviewed by me Assessment/Plan Assessment/Plan Impression: -probable small bowel obstruction -sepsis probably secondary to enteritis/colitis -acute kidney injury, vasomotor nephropathy -hyperkalemia -schizophrenia -primary hypertension -septic shock, resolved Plan: Events: Improvement with BM frequency. Ct abdomen pending -continue regular diet -change Protonix 40 mg IV b.i.d.. Carafate 1 g b.i.d. -C diff pending -continue antibiotic therapy with Zosyn -continue IV hydration -repeat labs in a.m. Total time spent with patient discussing and formulating plan of care: 35 minutes. This medical document was created using an electronic medical record system with [email or web address] dictation system. Although this document has been carefully reviewed, there may still be some phonetic and typographical errors. These areas are purely typographical due to imperfections of the software programs, and do not reflect any compromise in the patient's medical care. Plan discussed with: Patient, Other (RN) My Orders Orders - KARSTEN CAST NP Procedure Category Date Status Time Sucralfate Susp PHA 04/30/24 In Process (Carafate Susp) 22:00 Morphine Sulfate PHA 04/30/24 In Process Injection 15:30 Tramadol Hcl (Ultram) PHA 04/30/24 In Process 15:30 D5w/Sod Chl 0.9%/Kcl PHA 05/01/24 In Process [id number] 09:45 Date of Service: May 01, 2024 Billing Provider: KARSTEN CAST NP Common Visit Codes: [id number] INP/OBS CARE(HIGH) KARSTEN CAST NP May 01, 2024 12:27
[2024-05-01 13:00] VITALS: BP 141/78; PULSE 87; RESP 18; TEMP 97.7; O2SAT 95
[2024-05-01 17:30] VITALS: BP 126/78; PULSE 87; RESP 18; TEMP 97.8; O2SAT 92
[2024-05-01 21:00] VITALS: BP 131/82; PULSE 89; RESP 20; TEMP 97.8; O2SAT 93
[2024-05-02] MEDS: MORPHINE SULFATE INJ 2 MG/ml SYRG IV PRN (00:17)
[2024-05-02 01:00] VITALS: BP 146/91; PULSE 88; RESP 20; TEMP 97.8; O2SAT 92
[2024-05-02 05:00] VITALS: BP 146/88; PULSE 93; RESP 19; TEMP 97.3; O2SAT 96
[2024-05-02 09:06] VITALS: BP 131/85; PULSE 89; RESP 19; TEMP 97.2; O2SAT 92
--- NOTE | 2024-05-02 09:30 | DVH ---
Exam: XY KUB ABDOMEN SINGLE VIEW Indication: contrast in rectum Comparison: XY KUB ABDOMEN SINGLE VIEW on DOS: 04/29/24, XY KUB ABDOMEN SINGLE VIEW on DOS: 04/27/24 Technique: 1 radiographic views of the abdomen. Findings: Nonspecific bowel-gas pattern. Enteric contrast is present in the proximal colon. There is no definite evidence for pneumoperitoneum. No abnormal calcifications noted. Impression: Nonspecific bowel-gas pattern. Enteric contrast is present in the proximal colon.
[2024-05-02 10:20] VITALS: O2SAT 92
--- NOTE | 2024-05-02 10:20 | DVHPNRES ---
Progress Note Date Seen: May 02, 2024 Resident Creating Document: ANTONIO ARMSTRONG RESIDENT Medical Necessity Reason Pt with a Central, PICC or Fol: No Subjective Review of Systems HEENT:Normal, CVS:Normal, RESPIRATORY:Normal, GI:Normal, :Normal, MSK:Normal, NEURO:Normal Objective vital signs Vital Sign Date Time Temp Pulse Resp B/P (MAP) Pulse Ox O2 Delivery O2 Flow Rate FiO2 05/02/24 09:06 97.2 89 19 131/85 (100) 92 97.2 05/02/24 08:11 Room Air* 0 21 Total Intake and Output 05/01/24 05/01/24 05/02/24 15:00 23:00 07:00 Intake Total 740 ml 2020 ml 2700 ml Balance 740 ml 2020 ml 2700 ml medications Current Medications Medications Dose Ordered Sig/Clarence Route Start Time Stop Time Status Last Admin Dose Admin Piperacillin Sod/ Tazobactam Sod 100 ml @ 25 mls/hr Q8HR IV 04/26/24 22:00 05/02/24 05:20 25 MLS/HR Albuterol 2.5 mg Q4HPRN PRN NEB 04/26/24 19:15 Cancel Ipratropium [place] 0.5 mg Q4HPRN PRN NEB 04/26/24 19:15 Cancel Ondansetron HCl 4 mg Q4HP PRN IV 04/26/24 19:15 04/27/24 14:01 4 MG Nitroglycerin 0.4 mg Q5MINP PRN SL 04/26/24 21:00 Morphine Sulfate 2 mg Q30M PRN IV 04/26/24 21:00 04/27/24 10:31 2 MG Thiamine HCl 100 mg DAILY PO 04/27/24 10:00 05/02/24 09:09 100 MG Folic Acid 1 mg DAILY PO 04/27/24 10:00 05/02/24 09:09 1 MG Multivitamins/ Minerals 1 tab DAILY PO 04/27/24 10:00 05/02/24 09:08 1 TAB Lorazepam 0.5 mg Q12HP PRN PO 04/27/24 17:30 05/01/24 22:58 0.5 MG Fluoxetine HCl 20 mg DAILY PO 04/30/24 10:00 05/02/24 09:09 20 MG Montelukast Sodium 10 mg DAILY PO 04/30/24 10:00 05/02/24 09:09 10 MG Olanzapine 20 mg DAILY PO 04/30/24 10:00 05/02/24 09:08 20 MG Pantoprazole Sodium 40 mg BID IV 04/30/24 22:00 05/02/24 09:07 40 MG Enoxaparin Sodium 40 mg DAILY SC 05/01/24 10:00 05/02/24 09:07 40 MG Cholestyramine Resin 4 gm Q12HR@11,23 GT 04/30/24 23:00 05/01/24 22:09 4 GM Diphenoxylate HCl/ Atropine 2.5 mg PRN PRN PO 04/30/24 12:00 04/30/24 20:31 2.5 MG Metronidazole 500 mg Q8HR PO 04/30/24 14:00 05/02/24 05:20 500 MG Sucralfate 1 gm BID@0600,2200 PO 04/30/24 22:00 05/02/24 05:20 1 GM Morphine Sulfate 2 mg Q6HPRN PRN IV 04/30/24 15:30 05/02/24 00:17 2 MG Tramadol HCl 50 mg Q8HPRN PRN PO 04/30/24 15:30 05/01/24 17:45 50 MG Potassium Chloride/Dextrose/ Sod Cl 1,000 ml @ 120 mls/hr Q8H20M IV 05/01/24 09:45 05/02/24 02:25 120 MLS/HR Examination GENERAL:Normal, HEENT:Normal, NECK:Normal, LUNGS:Normal, CVS:Normal, ABDOMEN:Normal, MSK:Abnormal, SKIN:Normal, NEURO:Normal, :Normal laboratory and microbiology Laboratory Tests 05/01/24 05:09 Test 05/01/24 05:09 Range/Units Serum Glucose 107 H 74-106 mg/dL Microbiology Date/Time Source Procedure Growth Status 04/30/24 15:04 Stool Stool Culture - Final Complete 04/30/24 15:04 Stool Shiga Toxin I & II - Final Complete 04/27/24 00:42 Nose MRSA Screen - Final Complete 04/26/24 17:29 Blood Blood Culture - Final NO GROWTH AFTER 5 DAYS OF INCUBATION. Complete Labs and/or images reviewed: Labs reviewed by me, Image(s) reviewed by me Problem List/Assessment/Plan Problem List/Assessment/Plan A 59-year-old male with a history of COPD, CHF, anxiety, depression, schizophrenia, and hypertension presented to the ED with worsening nonradiating abdominal pain. He was found to have bruises, abnormal lab results, and hypotension (BP 73/50). Imaging revealed possible developing appendicitis and signs of bronchitis. He was started on Levophed and admitted for further evaluation and management. His past medical history includes anxiety, CHF, COPD, depression, hypertension, and schizophrenia, with past surgeries of tonsillectomy and ankle surgery. He lives at home, smokes cigarettes, is sober from alcohol, and uses marijuana. 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 #HD via ayala catheter / fistula / tunneled catheter Plan: Recommendations Kidney function resolved back to normal Increased urine output Hyponatremia slowly and appropriately improving Strict I&Os IVF NS at 100 cc/hour KCL replacement Sodium phos 40 millimole IV piggyback Check urinalysis urine electrolytes I will sign off this case, please reconsult as needed #Strict I&O and check Daily weight #Avoid Nephrotoxics #Avoid hyper/hypo tension Fluid Restriction, but it depents #Daily BMP, Serum Phosphorus, PTH Labs and Correct electrolytes but do not correct chronic (>) #Kidney Ultrasound. #Electrolytes urine K Na Protein Creatinine #Urinalysis #Hemodialysis done today, Removed #S/p HD Epogen given #Following Dr. Flore[facility]: Next dialysis. #Dopamine fixed dose for renal. Thank you for the opportunity to follow up on your patient. In case of any question feel free to reach out to the Nephrology team. Discussed with Nephrology attending Dr. Florez. Plan discussed with: Patient, Other My Orders My Orders Orders - ANTONIO ARMSTRONG RESIDENT Procedure Category Date Status Time Basic Metabolic Panel LAB 05/02/24 Logged 10:08 Dietary Evaluation Review Comments: 1. Pt not to go >7 days of NPO/CL diet only -> Currently DAY 3 2. Monitor bowel function; noted +BM and flatus w/ bowel sounds 3. Suggest diet advancement as medically able to low-residue diet 4. If unable to advance diet or prolonged period of NPO expected, recommend TPN w/ 1680 ml total vol, 60 gm lipid, 100 gm AA, 350 gm D (provides 2190 kcal) + standard electrolytes; advance to goal per pharmacy discretion Expected Outcomes/Goals: Improved nutritional status, weight maintenance. ANTONIO ARMSTRONG RESIDENT May 02, 2024 10:20
[2024-05-02] MEDS ORDERED: METR-344 PO (10:44)
--- NOTE | 2024-05-02 10:54 | DVHDS2 ---
Discharge Summary Date of Admission Apr 26, 2024 at 20:53 Date of Discharge: May 02, 2024 Admitting Diagnosis Septic shock Labs/Diagnostic Data: Laboratory Results Test 05/01/24 05:09 04/30/24 04:20 04/29/24 14:12 04/29/24 05:28 White Blood Count 9.1 10^3/uL (4.4-10.8) Red Blood Count 4.00 10^6/uL (4.5-5.90) Hemoglobin 12.9 g/dL (13.5-17.5) Hematocrit 36.9 % (41.0-53.0) Mean Corpuscular Volume 92.3 fL (80.0-100.0) Mean Corpuscular Hemoglobin 32.3 pg (28.0-32.0) Mean Corpuscular Hemoglobin Concent 35.0 g/dL (32.0-36.0) Red Cell Distribution Width 13.0 % (11.8-14.3) Platelet Count 239 10^3/uL (140-450) Mean Platelet Volume 7.7 fL (6.9-10.8) Neutrophils (%) (Auto) % (37.0-80.0) Lymphocytes (%) (Auto) % (10.0-50.0) Monocytes (%) (Auto) % (0.0-12.0) Basophils (%) (Auto) % (0.0-2.0) Neutrophils # (Auto) 10 ^3/uL (1.6-8.6) Lymphocytes # (Auto) 10 ^3/uL (0.4-5.4) Monocytes # (Auto) 10 ^3/uL (0-1.3) Differential Total Cells Counted 100.0 (100) Neutrophils % (Manual) 63 (37.0-80.0) Band Neutrophils % (Manual) 0 Lymphocytes % (Manual) 20 (10.0-50.0) Monocytes % (Manual) 16 (0-12) Eosinophils % (Manual) 1 (0-7) Basophils % (Manual) 0 (0.0-2.0) Metamyelocytes % (manual) 0 Myelocytes % (Manual) 0 Promyelocytes % (Manual) 0 Blast Cells % (Manual) 0 Reactive Lymphocytes 0 Platelet Estimate Adequate Sodium Level 132 mmol/L (136-145) Potassium Level 3.2 mmol/L (3.5-5.1) Chloride Level 100 mmol/L (98-107) Carbon Dioxide Level 27 mmol/L (20-31) Anion Gap 5 (5-15) Blood Urea Nitrogen 5 mg/dL (9-23) Creatinine 0.57 mg/dL (0.700-1.30) Glomerular Filtration Rate Calc 114 mL/min (>90) BUN/Creatinine Ratio 8.8 (10.0-20.0) Serum Glucose 107 mg/dL (74-106) Calcium Level 8.6 mg/dL (8.7-10.4) Total Bilirubin 0.5 mg/dL (0.2-1.0) Aspartate Amino Transferase (AST) 40 U/L (13-40) Alanine Aminotransferase (ALT) 33 U/L (7-40) Alkaline Phosphatase 97 U/L (46-116) Total Protein 5.7 g/dL (5.7-8.2) Albumin 3.8 g/dL (3.2-4.8) Urine Color Straw (Yellow) Urine Clarity Clear (Clear) Urine pH 6.5 (5.0-9.0) Urine Specific [place] 1.003 (1.001-1.035) Urine Protein Negative (Negative) Urine Ketones Negative (Negative) Urine Blood Negative /uL (Negative) Urine Nitrite Negative (Negative) Urine Bilirubin Negative (Negative) Urine Urobilinogen Normal mg/dL (Negative) Urine Leukocyte Esterase Negative /uL (Negative) Urine RBC None seen /hpf (0 - 3) Urine Microscopic WBC /HPF (0-3) Urine Squamous Epithelial Cells None seen /hpf (<5) Urine Bacteria None seen /hpf (None Seen) Urine Creatinine 11.96 mg/dL (30.0-125.0) Urine Protein/Creatinine Ratio 0.50 Urine Sodium 17 mmol/L (40-220) Urine Glucose Normal mg/dL (Normal) Urine Total Protein < 6.0 mg/dL (1-14) Urine Opiates Screen Neg (NEGATIVE) Urine Fentanyl Screen Neg (NEGATIVE) Urine Barbiturates Screen Neg (NEGATIVE) Urine Phencyclidine Screen Neg (NEGATIVE) Urine Amphetamines Screen Neg (NEGATIVE) Urine Benzodiazepines Screen Neg (NEGATIVE) Urine Cocaine Screen Neg (NEGATIVE) Urine Cannabinoids Screen Pos (NEGATIVE) Stool for White Cells Few Eosinophils (%) (Auto) 0.4 % (0.0-7.0) Eosinophils # (Auto) 0 10 ^3/uL (0-0.8) Basophils # (Auto) 0 10 ^3/uL (0-0.2) Nucleated Red Blood Cells 0.0 % Phosphorus Level 1.8 mg/dL (2.4-5.1) Magnesium Level 1.9 mg/dL (1.6-2.6) Hepatitis B Surface Antigen Negative (Negative) Hepatitis C Antibody Negative (Negative) Test 04/27/24 04:19 04/26/24 23:23 04/26/24 19:09 04/26/24 18:21 Lactic Acid Level 2.7 mmol/L (0.4-2.0) Prothrombin Time 14.0 sec (9.3-11.8) Prothrombin Time INR 1.36 (0.9-1.15) Activated Partial Thromboplast Time 52.4 SEC (24.5-34.5) Hemoglobin A1c 5.7 % A1C (<5.7) Lipase 44 U/L (12-53) Troponin I High Sensitivity 71 ng/L (</=54) Test 04/26/24 15:35 Large Platelets Few B-Type Natriuretic Peptide 82.32 pg/mL (0-100) Other Laboratory Tests 05/01/24 05:09 Brief Hx & Hospital Course: History of Present Illness Patient is a 59-year-old male with past medical history of COPD, CHF, anxiety, depression, schizophrenia, and hypertension who presented to [facility] ED with complaint of acute abdominal pain. Patient reports symptoms progressively get worse with constant nonradiating abdominal pain, getting worse that prompted this visit. Patient was seen and evaluated in the ED with bruises all his body, laboratory data shows WBC 38.2, platelets 419, sodium 129, potassium 4.8, BUN 20, creatinine 1.44, GFR 57, glucose 194, hemoglobin A1c 5.7, troponin 70, lactic acid 4.5, BNP 82.32, AST 144, ALT 54, lipase 67, PT 14.0, INR 1.36, APTT 75.1 trending down to 52.4, blood pressure 73/50, heart rate 82, temperature 97.6 F, O2 saturation 92% oxygen. Abdomen/pelvis CT showed moderately fluid distended, suggest decompression by placement of an enteric tube, moderate fluid and fecal distention of the large bowel with loss of haustration without mural thickening, borderline dilated appendix measuring 0.7 cm in caliber with mild mural thickening and adjacent fat stranding without and appendicolith, developing appendicitis can not be ruled out. Chest x-ray revealing bilateral perihilar infiltrates and bibasilar airspace disease and atelectasis; correlate for possible bronchitis. EKG showed no STEMI at this time. Patient was started Levophed, please see medication orders section in the computer. On my assessment, patient denied chest pain, no headache, no dizziness, diaphoresis, currently on oxygen, no diarrhea, no nausea, vomiting, no fever, no chills. Patient was admitted for further evaluation and medical management. Course of hospitalization: Patient was found to be in acute kidney injury, severe dehydration, as well as hypovolemic. Patient was noted to have increased lactic acid level, white blood cell count, for which empiric antibiotic therapy started with the patient. CT scan was performed of the abdomen and pelvis which revealed severe stool burden with the patient reporting that he has not had a bowel movement in over a week. Surgical consultation was obtained. Patient was given aggressive IV hydration with vasopressor therapy weaned off. Patient also had multiple CT scans which showed resolution of previous stool burden, also negative for any acute pathology. White blood cell count improved. Patient has been tolerating oral intake. Patient did have problems with multiple bouts of diarrhea with adequate IV resuscitation performed as well as electrolyte replete. Patient was stating that he was feeling better. He was requesting to be discharged home. Patient has been cleared by General surgery. He will be followed up by his PCP, Dr. Galdamez in 1-2 weeks. All cultures are thus negative including C diff. Patient will be continued on antibiotic therapy with Flagyl 500 mg p.o. 3 times a day for additional five days. Patient was agreeable with discharge plan. All questions answered. Physical examination General: Alert and Oriented x3. No acute distress. Well-nourished. Eyes: EOMI. Anicteric. HENT: Moist mucous membranes. Lungs: Clear to auscultation bilaterally. No accessory muscle use. Cardiovascular: Regular rate and rhythm. No murmur. No JVD. Abdomen: Soft, non-tender and non-distended. No palpable masses. Extremities: No edema. Non-tender. Skin: No rashes or lesions. Warm. Neurologic: No focal neurological deficits. CN II-XII grossly intact, but not individually tested. Psychiatric: Cooperative. Appropriate mood and affect. Total time spent with patient discussing and formulating plan of care: 35 minutes. This medical document was created using an electronic medical record system with [employer] dictation system. Although this document has been carefully reviewed, there may still be some phonetic and typographical errors. These areas are purely typographical due to imperfections of the software programs, and do not reflect any compromise in the patient's medical care. Consults/Reason for consult General surgery: Acute abdomen Cardiology: Septic shock Condition at Discharge: Guarded Final Diagnosis/Problems List Severe obstipation with sirs Secondary diagnosis: -probable small bowel obstruction , resolved -sepsis probably secondary to enteritis/colitis -acute kidney injury, vasomotor nephropathy -hyperkalemia -schizophrenia -primary hypertension -septic shock, resolved Discharge Disposition: Home Discharge Instruct/Medications Diet: Regular Activity: No Restrictions, As Tolerated Follow Up/Referral: Follow up with Dr. Galdamez 1-2 weeks Medications: Continue all home medication Flagyl 500 mg p.o. t.i.d. times five days 36 Discharge Statement: "Patient was advised to return to the ER or call 911 if any headaches, dizziness, shortness of breath, chest pain, abdominal pain, bleeding, fevers, or worsening of medical condition. Patient was counseled about treatment plan, medications, possible side effects, patientverbalized understanding. All questions were answered to the best of my ability. This discharge took greater then 30 minutes in planning, reviewing documentation, counseling the patient, and discussing with other team members." ASSESSMENT ASSESSMENT Assessment Severe obstipation with sirs Date of Service: May 02, 2024 Billing Provider: KARSTEN CAST NP Common Visit Codes: 25069-CJC/OBS DISCH DAY >30min KARSTEN CAST NP May 02, 2024 10:54
[2024-05-02 11:14] VITALS: BP 131/85; PULSE 89; RESP 19; TEMP 36.2; O2SAT 92
[2024-05-02 11:33] LABS: Anion Gap 7 (5-15); Calcium 8.9 mg/dL (8.7-10.4); Carbon Dioxide 26 mmol/L (20-31); Chloride 102 mmol/L (98-107); Potassium 3.2 mmol/L (3.5-5.1); Sodium 135 mmol/L (136-145)
[2024-05-02 11:39] LABS: BUN/Creatinine Ratio 8.8 (10.0-20.0); Blood Urea Nitrogen 5 mg/dL (9-23); Glucose 128 mg/dL (74-106)
--- NOTE | 2024-05-02 12:12 | DVHPN2 ---
Progress Note Date Seen: May 02, 2024 Resident Creating Document: JESUS PARSONS RESIDENT Medical Necessity Reason Pt with a Central, PICC or Fol: No Subjective Review of Systems 59-year-old male presented to ER with abdominal pain, in epigastric area that was constant and nonradiating, Patient admits to pain having improved at this time. No nausea or vomiting. No hematemesis, Patient does complain of loose stool, one stool per hour per patient. No melena or red blood in stool, No recent antibiotic use per patient, Patient admits to having a poor appetite at this time. Patient seen and examined at bedside, patient states diary improved Objective vital signs Vital Sign Date Time Temp Pulse Resp B/P (MAP) Pulse Ox O2 Delivery O2 Flow Rate FiO2 05/02/24 11:14 36.2 89 19 92 05/02/24 10:20 Room Air 05/02/24 10:20 0 21 05/02/24 09:06 131/85 (100) Total Intake and Output 05/01/24 05/01/24 05/02/24 15:00 23:00 07:00 Intake Total 740 ml 2020 ml 2700 ml Balance 740 ml 2020 ml 2700 ml medications Current Medications Medications Dose Ordered Sig/Clarence Route Start Time Stop Time Status Last Admin Dose Admin Piperacillin Sod/ Tazobactam Sod 100 ml @ 25 mls/hr Q8HR IV 04/26/24 22:00 05/02/24 05:20 25 MLS/HR Albuterol 2.5 mg Q4HPRN PRN NEB 04/26/24 19:15 Cancel Ipratropium [place] 0.5 mg Q4HPRN PRN NEB 04/26/24 19:15 Cancel Ondansetron HCl 4 mg Q4HP PRN IV 04/26/24 19:15 04/27/24 14:01 4 MG Nitroglycerin 0.4 mg Q5MINP PRN SL 04/26/24 21:00 Morphine Sulfate 2 mg Q30M PRN IV 04/26/24 21:00 04/27/24 10:31 2 MG Thiamine HCl 100 mg DAILY PO 04/27/24 10:00 05/02/24 09:09 100 MG Folic Acid 1 mg DAILY PO 04/27/24 10:00 05/02/24 09:09 1 MG Multivitamins/ Minerals 1 tab DAILY PO 04/27/24 10:00 05/02/24 09:08 1 TAB Lorazepam 0.5 mg Q12HP PRN PO 04/27/24 17:30 05/01/24 22:58 0.5 MG Fluoxetine HCl 20 mg DAILY PO 04/30/24 10:00 05/02/24 09:09 20 MG Montelukast Sodium 10 mg DAILY PO 04/30/24 10:00 05/02/24 09:09 10 MG Olanzapine 20 mg DAILY PO 04/30/24 10:00 05/02/24 09:08 20 MG Pantoprazole Sodium 40 mg BID IV 04/30/24 22:00 05/02/24 09:07 40 MG Enoxaparin Sodium 40 mg DAILY SC 05/01/24 10:00 05/02/24 09:07 40 MG Cholestyramine Resin 4 gm Q12HR@11,23 GT 04/30/24 23:00 05/01/24 22:09 4 GM Diphenoxylate HCl/ Atropine 2.5 mg PRN PRN PO 04/30/24 12:00 04/30/24 20:31 2.5 MG Metronidazole 500 mg Q8HR PO 04/30/24 14:00 05/02/24 05:20 500 MG Sucralfate 1 gm BID@0600,2200 PO 04/30/24 22:00 05/02/24 05:20 1 GM Morphine Sulfate 2 mg Q6HPRN PRN IV 04/30/24 15:30 05/02/24 00:17 2 MG Tramadol HCl 50 mg Q8HPRN PRN PO 04/30/24 15:30 05/01/24 17:45 50 MG Potassium Chloride/Dextrose/ Sod Cl 1,000 ml @ 120 mls/hr Q8H20M IV 05/01/24 09:45 05/02/24 10:45 120 MLS/HR Examination GENERAL: Not in acute distress. HEENT: EOMI, Moist mucous membranes. No scleral icterus. No cervical lymphadenopathy. LUNGS: Clear to auscultation bilaterally. No accessory muscle use. CARDIOVASCULAR: Regular rate and rhythm. No murmur. No JVD. ABDOMEN: Soft, and nondistended. Mild tenderness, Bowel sounds hyperactive. EXTREMITIES: No edema. Nontender. SKIN: No rashes or lesions. Warm. NEUROLOGIC: Alert and oriented X3 laboratory and microbiology Laboratory Tests 05/02/24 10:50 05/01/24 05:09 Test 05/02/24 10:50 Range/Units Serum Glucose 128 H 74-106 mg/dL Microbiology Date/Time Source Procedure Growth Status 04/30/24 15:04 Stool Stool Culture - Final Complete 04/30/24 15:04 Stool Shiga Toxin I & II - Final Complete 04/27/24 00:42 Nose MRSA Screen - Final Complete 04/26/24 17:29 Blood Blood Culture - Final NO GROWTH AFTER 5 DAYS OF INCUBATION. Complete Problem List/Assessment/Plan Problem List/Assessment/Plan # Ruled out small bowel obstruction # sepsis probably secondary to enteritis/colitis # ALEXANDRA, vasomotor nephropathy # hyperkalemia # schizophrenia # primary hypertension # Diarrhea Plan - daily improved. Repeat KUB negative for any type of obstruction. - continue antibiotics -stool for C diff since last test was incomplete - repeat C diff, Result negative - continue cholestyramine daily - stool for WBC: Few -Advance diet as tolerated Recommend to prescribe cholestyramine one pack p.o. daily, Imodium p.r.n. Thank you so much for the opportunity to consult on your patient. GI team will follow the patient. In case of any questions or concerns please feel free to reach out. Case discussed with Dr. Terrence eMza. The patient and caregiver team agreed to the plan. Plan discussed with: Patient Dietary Evaluation Review Comments: 1. Pt not to go >7 days of NPO/CL diet only -> Currently DAY 3 2. Monitor bowel function; noted +BM and flatus w/ bowel sounds 3. Suggest diet advancement as medically able to low-residue diet 4. If unable to advance diet or prolonged period of NPO expected, recommend TPN w/ 1680 ml total vol, 60 gm lipid, 100 gm AA, 350 gm D (provides 2190 kcal) + standard electrolytes; advance to goal per pharmacy discretion Expected Outcomes/Goals: Improved nutritional status, weight maintenance. JESUS PARSONS RESIDENT May 02, 2024 12:12
[2024-05-02] MEDS: POTASSIUM CHL 20 Meq TABLET PO ONE (12:14)
--- NOTE | 2024-05-02 12:47 | DVHPN2 ---
Progress Note Date Seen: May 02, 2024 Medical Necessity Reason Pt with a Central, PICC or Fol: No Objective vital signs Vital Sign Date Time Temp Pulse Resp B/P (MAP) Pulse Ox O2 Delivery O2 Flow Rate FiO2 05/02/24 11:14 36.2 89 19 92 05/02/24 10:20 Room Air 05/02/24 10:20 0 21 05/02/24 09:06 131/85 (100) Total Intake and Output 05/01/24 05/01/24 05/02/24 15:00 23:00 07:00 Intake Total 740 ml 2020 ml 2700 ml Balance 740 ml 2020 ml 2700 ml medications Current Medications Medications Dose Ordered Sig/Clarence Route Start Time Stop Time Status Last Admin Dose Admin Piperacillin Sod/ Tazobactam Sod 100 ml @ 25 mls/hr Q8HR IV 04/26/24 22:00 05/02/24 05:20 25 MLS/HR Albuterol 2.5 mg Q4HPRN PRN NEB 04/26/24 19:15 Cancel Ipratropium [place] 0.5 mg Q4HPRN PRN NEB 04/26/24 19:15 Cancel Ondansetron HCl 4 mg Q4HP PRN IV 04/26/24 19:15 04/27/24 14:01 4 MG Nitroglycerin 0.4 mg Q5MINP PRN SL 04/26/24 21:00 Morphine Sulfate 2 mg Q30M PRN IV 04/26/24 21:00 04/27/24 10:31 2 MG Thiamine HCl 100 mg DAILY PO 04/27/24 10:00 05/02/24 09:09 100 MG Folic Acid 1 mg DAILY PO 04/27/24 10:00 05/02/24 09:09 1 MG Multivitamins/ Minerals 1 tab DAILY PO 04/27/24 10:00 05/02/24 09:08 1 TAB Lorazepam 0.5 mg Q12HP PRN PO 04/27/24 17:30 05/01/24 22:58 0.5 MG Fluoxetine HCl 20 mg DAILY PO 04/30/24 10:00 05/02/24 09:09 20 MG Montelukast Sodium 10 mg DAILY PO 04/30/24 10:00 05/02/24 09:09 10 MG Olanzapine 20 mg DAILY PO 04/30/24 10:00 05/02/24 09:08 20 MG Pantoprazole Sodium 40 mg BID IV 04/30/24 22:00 05/02/24 09:07 40 MG Enoxaparin Sodium 40 mg DAILY SC 05/01/24 10:00 05/02/24 09:07 40 MG Cholestyramine Resin 4 gm Q12HR@11,23 GT 04/30/24 23:00 05/01/24 22:09 4 GM Diphenoxylate HCl/ Atropine 2.5 mg PRN PRN PO 04/30/24 12:00 04/30/24 20:31 2.5 MG Metronidazole 500 mg Q8HR PO 04/30/24 14:00 05/02/24 05:20 500 MG Sucralfate 1 gm BID@0600,2200 PO 04/30/24 22:00 05/02/24 05:20 1 GM Morphine Sulfate 2 mg Q6HPRN PRN IV 04/30/24 15:30 05/02/24 00:17 2 MG Tramadol HCl 50 mg Q8HPRN PRN PO 04/30/24 15:30 05/01/24 17:45 50 MG Potassium Chloride/Dextrose/ Sod Cl 1,000 ml @ 120 mls/hr Q8H20M IV 05/01/24 09:45 05/02/24 10:45 120 MLS/HR laboratory and microbiology Laboratory Tests 05/02/24 10:50 05/01/24 05:09 Test 05/02/24 10:50 Range/Units Serum Glucose 128 H 74-106 mg/dL Microbiology Date/Time Source Procedure Growth Status 04/30/24 15:04 Stool Stool Culture - Final Complete 04/30/24 15:04 Stool Shiga Toxin I & II - Final Complete 04/27/24 00:42 Nose MRSA Screen - Final Complete 04/26/24 17:29 Blood Blood Culture - Final NO GROWTH AFTER 5 DAYS OF INCUBATION. Complete Problem List/Assessment/Plan Problem List/Assessment/Plan AFEBRILE VSS NO INCREASING ABD PAIN BM + FLATUS + DIARRHEA WBC TRENDING DOWN WNL ABD SOFT LESS TENDER MORE IN THE LLQ HIGH RISK FOR SURGERY CONTINUE CLOSE OBSERVATION NURSE AT BEDSIDE REPEAT CT SCAN ABD PELVIS NO APPENDICITIS CONFIRMED REPEAT LABS AM Plan discussed with: Patient Dietary Evaluation Review Comments: 1. Pt not to go >7 days of NPO/CL diet only -> Currently DAY 3 2. Monitor bowel function; noted +BM and flatus w/ bowel sounds 3. Suggest diet advancement as medically able to low-residue diet 4. If unable to advance diet or prolonged period of NPO expected, recommend TPN w/ 1680 ml total vol, 60 gm lipid, 100 gm AA, 350 gm D (provides 2190 kcal) + standard electrolytes; advance to goal per pharmacy discretion Expected Outcomes/Goals: Improved nutritional status, weight maintenance. SENTHIL DIAZ MD May 02, 2024 12:47
--- NOTE | 2024-05-02 15:06 | DVHPN2 ---
Progress Note - Dictate Date Seen: May 02, 2024 Medical Necessity Reason Pt with a Central, PICC or Fol: No Subjective PT WITH ABD PAIN ABD DISTENSION STOOL IMPACTION HYPOTENSION LEUKOCYTOSIS WITH LEFT SHIFT LEUKOCYTOSIS PROFILE IMPROVING NOW PT WITH BOWEL EMPTYING SX ARE IMPROVING HX OF CAD EF45% COPD/ ON HOME O2 TOBACCO USE ETOH USE HX OF GASTROPARESIS PAD Right lower extremity angiography revealed: * Right common iliac without any flow restrictive lesion. * Right external and internal iliac without any flow restrictive lesion. * Right common femoral without any flow restrictive lesion. * Right profunda and superficial femoral artery without any flow restrictive lesion. * Right popliteal, tibioperoneal trunk, anterior tibial, posterior tibial and the peroneal arteries were all patent all the way down to the ankle. Left lower extremity angiography revealed: * Left common iliac without any flow restrictive lesion. * Left common external and internal iliacs without any flow restrictive lesion. * Left common femoral without any flow restrictive lesion. * Left profunda and superficial femoral artery without any flow restrictive lesion. * Left popliteal, tibioperoneal trunk, posterior tibial and the peroneal arteries without any flow restrictive lesion. * Anterior tibial, however, is occluded at the level of the ankle. Unable to revascularize because of collateral circulation both from the posterior tibial and peroneal arteries. Furthermore, because of the heart rate that he has, I believe that is what compromises his circulation. At this time, the patient is having adequate supply to the ankle. There is no indication for revascularization of the anterior tibial at this time, especially with collateral circulation. Conservative medical management will be implemented. NATACHA/ WITH MULTIPLE ANKLE SURGERIES DEPRESSION HTN vital signs Vital Sign Date Time Temp Pulse Resp B/P (MAP) Pulse Ox O2 Delivery O2 Flow Rate FiO2 05/02/24 11:14 36.2 89 19 92 05/02/24 10:20 Room Air 05/02/24 10:20 0 21 05/02/24 09:06 131/85 (100) Total Intake and Output 05/01/24 05/01/24 05/02/24 15:00 23:00 07:00 Intake Total 740 ml 2020 ml 2700 ml Balance 740 ml 2020 ml 2700 ml medications Current Medications Medications Dose Ordered Sig/Clarence Route Start Time Stop Time Status Last Admin Dose Admin Albuterol 2.5 mg Q4HPRN PRN NEB 04/26/24 19:15 Cancel Ipratropium [place]ettie 0.5 mg Q4HPRN PRN NEB 04/26/24 19:15 Cancel laboratory and microbiology Laboratory Tests 05/02/24 10:50 05/01/24 05:09 Test 05/02/24 10:50 Range/Units Serum Glucose 128 H 74-106 mg/dL Problem List ABD PAIN ABD DISTENSION STOOL IMPACTION HYPOTENSION LEUKOCYTOSIS WITH LEFT SHIFT LEUKOCYTOSIS PROFILE IMPROVING NOW PT WITH BOWEL EMPTYING SX ARE IMPROVING HX OF CAD EF45% COPD/ ON HOME O2 TOBACCO USE ETOH USE HX OF GASTROPARESIS PAD Right lower extremity angiography revealed: * Right common iliac without any flow restrictive lesion. * Right external and internal iliac without any flow restrictive lesion. * Right common femoral without any flow restrictive lesion. * Right profunda and superficial femoral artery without any flow restrictive lesion. * Right popliteal, tibioperoneal trunk, anterior tibial, posterior tibial and the peroneal arteries were all patent all the way down to the ankle. Left lower extremity angiography revealed: * Left common iliac without any flow restrictive lesion. * Left common external and internal iliacs without any flow restrictive lesion. * Left common femoral without any flow restrictive lesion. * Left profunda and superficial femoral artery without any flow restrictive lesion. * Left popliteal, tibioperoneal trunk, posterior tibial and the peroneal arteries without any flow restrictive lesion. * Anterior tibial, however, is occluded at the level of the ankle. Unable to revascularize because of collateral circulation both from the posterior tibial and peroneal arteries. Furthermore, because of the heart rate that he has, I believe that is what compromises his circulation. At this time, the patient is having adequate supply to the ankle. There is no indication for revascularization of the anterior tibial at this time, especially with collateral circulation. Conservative medical management will be implemented. NATACHA/ WITH MULTIPLE ANKLE SURGERIES DEPRESSION HTN Assessment/Plan ABX IV FLUIDS CORRECT LYTES KUB OBSTRUCTION RESOLVED LEUKOCYTOSIS RESOLVED MAY DC HOME C DIFF NEGATIVE Dietary Evaluation Review Comments: 1. Pt not to go >7 days of NPO/CL diet only -> Currently DAY 3 2. Monitor bowel function; noted +BM and flatus w/ bowel sounds 3. Suggest diet advancement as medically able to low-residue diet 4. If unable to advance diet or prolonged period of NPO expected, recommend TPN w/ 1680 ml total vol, 60 gm lipid, 100 gm AA, 350 gm D (provides 2190 kcal) + standard electrolytes; advance to goal per pharmacy discretion Expected Outcomes/Goals: Improved nutritional status, weight maintenance. Plan discussed with: Patient ROBERT CHRISTENSEN MD May 02, 2024 15:06
--- NOTE | 2024-05-09 09:16 | DVHPN2 ---
Progress Note - Dictate Date Seen: May 01, 2024 Medical Necessity Reason Pt with a Central, PICC or Fol: No Subjective PT WITH ABD PAIN ABD DISTENSION STOOL IMPACTION HYPOTENSION LEUKOCYTOSIS WITH LEFT SHIFT LEUKOCYTOSIS PROFILE IMPROVING NOW PT WITH BOWEL EMPTYING SX ARE IMPROVING HX OF CAD EF45% COPD/ ON HOME O2 TOBACCO USE ETOH USE HX OF GASTROPARESIS PAD Right lower extremity angiography revealed: * Right common iliac without any flow restrictive lesion. * Right external and internal iliac without any flow restrictive lesion. * Right common femoral without any flow restrictive lesion. * Right profunda and superficial femoral artery without any flow restrictive lesion. * Right popliteal, tibioperoneal trunk, anterior tibial, posterior tibial and the peroneal arteries were all patent all the way down to the ankle. Left lower extremity angiography revealed: * Left common iliac without any flow restrictive lesion. * Left common external and internal iliacs without any flow restrictive lesion. * Left common femoral without any flow restrictive lesion. * Left profunda and superficial femoral artery without any flow restrictive lesion. * Left popliteal, tibioperoneal trunk, posterior tibial and the peroneal arteries without any flow restrictive lesion. * Anterior tibial, however, is occluded at the level of the ankle. Unable to revascularize because of collateral circulation both from the posterior tibial and peroneal arteries. Furthermore, because of the heart rate that he has, I believe that is what compromises his circulation. At this time, the patient is having adequate supply to the ankle. There is no indication for revascularization of the anterior tibial at this time, especially with collateral circulation. Conservative medical management will be implemented. NATACHA/ WITH MULTIPLE ANKLE SURGERIES DEPRESSION HTN medications Current Medications Medications Dose Ordered Sig/Clarence Route Start Time Stop Time Status Last Admin Dose Admin Albuterol 2.5 mg Q4HPRN PRN NEB 04/26/24 19:15 Cancel Ipratropium [place] 0.5 mg Q4HPRN PRN NEB 04/26/24 19:15 Cancel laboratory and microbiology Laboratory Tests 05/02/24 10:50 05/01/24 05:09 Test 05/02/24 10:50 Range/Units Serum Glucose 128 H 74-106 mg/dL Problem List ABD PAIN ABD DISTENSION STOOL IMPACTION HYPOTENSION LEUKOCYTOSIS WITH LEFT SHIFT LEUKOCYTOSIS PROFILE IMPROVING NOW PT WITH BOWEL EMPTYING SX ARE IMPROVING HX OF CAD EF45% COPD/ ON HOME O2 TOBACCO USE ETOH USE HX OF GASTROPARESIS PAD Right lower extremity angiography revealed: * Right common iliac without any flow restrictive lesion. * Right external and internal iliac without any flow restrictive lesion. * Right common femoral without any flow restrictive lesion. * Right profunda and superficial femoral artery without any flow restrictive lesion. * Right popliteal, tibioperoneal trunk, anterior tibial, posterior tibial and the peroneal arteries were all patent all the way down to the ankle. Left lower extremity angiography revealed: * Left common iliac without any flow restrictive lesion. * Left common external and internal iliacs without any flow restrictive lesion. * Left common femoral without any flow restrictive lesion. * Left profunda and superficial femoral artery without any flow restrictive lesion. * Left popliteal, tibioperoneal trunk, posterior tibial and the peroneal arteries without any flow restrictive lesion. * Anterior tibial, however, is occluded at the level of the ankle. Unable to revascularize because of collateral circulation both from the posterior tibial and peroneal arteries. Furthermore, because of the heart rate that he has, I believe that is what compromises his circulation. At this time, the patient is having adequate supply to the ankle. There is no indication for revascularization of the anterior tibial at this time, especially with collateral circulation. Conservative medical management will be implemented. NATACHA/ WITH MULTIPLE ANKLE SURGERIES DEPRESSION HTN Assessment/Plan ABX IV FLUIDS CORRECT LYTES KUB OBSTRUCTION RESOLVED LEUKOCYTOSIS RESOLVED MAY DC HOME C DIFF NEGATIVE Dietary Evaluation Review Comments: 1. Pt not to go >7 days of NPO/CL diet only -> Currently DAY 3 2. Monitor bowel function; noted +BM and flatus w/ bowel sounds 3. Suggest diet advancement as medically able to low-residue diet 4. If unable to advance diet or prolonged period of NPO expected, recommend TPN w/ 1680 ml total vol, 60 gm lipid, 100 gm AA, 350 gm D (provides 2190 kcal) + standard electrolytes; advance to goal per pharmacy discretion Expected Outcomes/Goals: Improved nutritional status, weight maintenance. ROBERT CHRISTENSEN MD May 09, 2024 09:16
== END 2024-05-02 14:05 | disposition home or self-care (01) | DRG 871 ==
LOC: EDBD 15:18 → ER 15:18 → OVERFLOW 20:53 → TELE-EAST 04-27 20:46 → EAST 04-30 01:20
PROVIDERS: ADMIT Nurse Practitioner Acute Care; ATTEND Nurse Practitioner Acute Care
PROC: 0D9670Z Drainage of Stomach with Drainage Device, Via Natural or Artificial Opening (ICD-10-PCS; principal; 2024-04-28)
DX: A41.9 Sepsis, unspecified organism (principal); J18.9 Pneumonia, unspecified organism; R65.21 Severe sepsis with septic shock; N17.0 Acute kidney failure with tubular necrosis; D68.9 Coagulation defect, unspecified; E87.1 Hypo-osmolality and hyponatremia; K56.609 Unspecified intestinal obstruction, unspecified as to partial versus complete obstruction; E87.20 Acidosis, unspecified; J44.0 Chronic obstructive pulmonary disease with (acute) lower respiratory infection; K52.9 Noninfective gastroenteritis and colitis, unspecified; E87.5 Hyperkalemia; E86.0 Dehydration; F17.210 Nicotine dependence, cigarettes, uncomplicated; F12.90 Cannabis use, unspecified, uncomplicated; K59.00 Constipation, unspecified; E83.39 Other disorders of phosphorus metabolism; R74.01 Elevation of levels of liver transaminase levels; F20.9 Schizophrenia, unspecified; F32.A Depression, unspecified; E86.1 Hypovolemia; K37 Unspecified appendicitis; I11.0 Hypertensive heart disease with heart failure; I50.9 Heart failure, unspecified; F41.9 Anxiety disorder, unspecified; Z79.899 Other long term (current) drug therapy; Z79.891 Long term (current) use of opiate analgesic; Z79.1 Long term (current) use of non-steroidal anti-inflammatories (NSAID); Z82.5 Family history of asthma and other chronic lower respiratory diseases; Z83.3 Family history of diabetes mellitus; Z82.49 Family history of ischemic heart disease and other diseases of the circulatory system
CPT/HCPCS: 36415; 71045; 74018; 74176; 80048; 80053; 80307; 81001; 82570; 83036; 83605; 83690; 83735; 83880; 84100; 84156; 84300; 84484; 85007; 85014; 85018; 85025; 85027; 85048; 85610; 85730; 86803; 87040; 87045; 87081; 87340; 87427; 87493; 93005; 94640; 94660; 96361; 96365; 96375; 96376; 99291; 99292; G0378; J1815; J2405; J2470; J2543; J3490; J7060

== ENCOUNTER 2024-06-09 14:42 | Inpatient (IN) | payer MEDICARE, MEDICAID ==
[~2024-06-09] VITALS: Ht 188 cm; Wt 93.0 kg
[~2024-06-09 14:42] MED LIST changes: +METR-344 PO
--- NOTE | 2024-06-09 15:02 | ED.PDOC ---
GI ASSESSMENT HPI Comments 59 y.o male with PMHx of COPD, chronic back pain, bipolar disorder, and CHF, presents to the ED for a chief complaint of constipation and nausea that started 5 days ago. Patient reports passing some gas and has abdominal discomfort due to the constipation. Patient mentions one month ago he was diagnosed with intestinal obstruction and was concerned of similar diagnosis today. Patient is on [place] 10mg 3x a day for chronic back pain. He denies any vomiting, rectal bleeding, fever, chills, sweats, or weakness. Time Seen by MD: 14:54 Primary Care Provider: UNKNOWN Reviewed Notes: Nurses Notes, Medications, Allergies Allergies: Coded Allergies: NO KNOWN ALLERGIES (Unverified , 06/21/09) Home Meds Active Scripts Metronidazole (Flagyl) 500 Mg Tab, 1 TAB PO TID for 5 Days, #15 TAB Prov:KARSTEN CAST RX SPECIALIST 05/02/24 Reported Medications Potassium Chloride (Klor-Con M10) 10 Meq Tab, 1 TAB PO DAILY 12/25/22 Furosemide (Lasix) 20 Mg Tb, 1 TAB PO DAILY 12/25/22 Hydrocodone-Acetaminophen (Hydrocodone/Acetaminophen 10-325 mg) 1 Tab Tab, 1 TAB PO TID 12/25/22 Tramadol Hcl (Tramadol Hcl) 50 Mg Tab, 50 MG PO BID 12/25/22 Lorazepam (Ativan) 0.5 Mg Tab, 1 MG PO qhs 12/25/22 Montelukast Sodium (Singulair) 5 Mg Chw, 10 MG PO DAILY 12/25/22 Suvorexant (Belsomra) 20 Mg Tab, 20 MG PO DAILY 12/25/22 Sucralfate (CARAFATE) 1 Gm Tab, 2 GM PO BID 12/25/22 Ondansetron Odt 4MG Tab (ZOFRAN PO) 4 Mg Tb, 4 MG PO Q8HPRN PRN for NAUSEA / VO MITING ODT TAB-DISSOLVE IN MOUTH, THEN SWALLOW 12/25/22 Fluoxetine Hcl (Fluoxetine Hcl) 40 Mg Cap, 1 CAP PO DAILY 12/28/20 Disulfiram (DISULFIRAM) 250 Mg Tab, 1 TAB PO DAILY 12/28/20 Diphenoxylate W/ Atropine (Diphenoxylate/Atropine 2.5-0.025 mg) 1 Tab Tab, 1 TAB PO QID PRN for FOR DIARRHEA 12/28/20 Dexlansoprazole (Dexilant) 60 Mg Cap, 1 CAP PO BID 12/28/20 Albuterol Sulfate (Albuterol Sulfate Hfa) 108 Mcg/Act Aer, 2 PUFF PO Q4HPRN PRN for wheezing 12/28/20 Benazepril Hcl (Benazepril Hcl) 10 Mg Tab, 1 TAB PO DAILY 12/28/20 Tkkywenkvhm-Yfnxlihbyith-Bqgwd (Trelegy Ellipta 100-62.5-25 Mcg/INH) 1 Aer Aer, 1 PUFF PO DAILY 12/28/20 Olanzapine (Zyprexa) 20 Mg Tab, 20 MG PO DAILY 12/06/20 Information Source: Patient Mode of Arrival: Wheelchair Timing: Days (5) Duration: Since onset Quality: Aching Vomitus: None Stool: Empty Severity: Moderate Modifying Factors: Nothing Associated sign and symptoms: Nausea, Constipation Past Medical History PAST MEDICAL HISTORY: Anxiety, CHF, COPD, Depression, HTN, Schizophrenia Surgical History: Tonsillectomy Surgical History (Other): intestinal obstruction Family History Family History: Reviewed,noncontributory to illness, Family hx of heart olga Social History Smoker: Quit Less Than 1 Year, Cigarettes Alcohol: Sober Drugs: Marijuana Lives In: Home Constitutional: denies: chills, diaphoresis, fatigue, fever, malaise, sweats, weakness, others EENTM: denies: blurred vision, double vision, ear bleeding, ear discharge, ear drainage, ear pain, ear ringing, eye pain, eye redness, hearing loss, mouth pa in, mouth swelling, nasal discharge, nose bleeding, nose congestion, nose pain, photophobia, tearing, throat pain, throat swelling, voice changes, others Respiratory: denies: cough, hemoptysis, orthopnea, SOB at rest, shortness of breath, SOB with excertion, stridor, wheezing, others Cardiovascular: denies: chest pain, dizzy spells, diaphoresis, Dyspnea on exertion, edema, irregular heart beat, left arm pain, lightheadedness, palpitations, PND, syncope, others Gastrointestinal: reports: constipated, nausea; denies: abdomen distended, abdominal pain, blood streaked bowels, diarrhea, dysphagia, difficulty swallowing, hematemesis, melena, poor appetite, poor fluid intake, rectal bleeding, rectal pain, vomiting, others Genitourinary: denies: burning, dysuria, flank pain, frequency, hematuria, incontinence, penile discharge, penile sore, pain, testicle pain, testicle swelling, urgency, others Neurological: denies: dizziness, fainting, headache, left sided numbness, left sided weakness, numbness, paresthesia, pre-existing deficit, right sided numbness, right sided weakness, seizure, speech problems, tingling, tremors, weakness, others Musculoskeletal: denies: back pain, gout, joint pain, joint swelling, muscle pain, muscle stiffness, neck pain, others Integumetry: denies: bruises, change in color, change in hair/nails, dryness, laceration, lesions, lumps, rash, wounds, others Allergic/Immunocompromised: denies: Difficulty Healing, Frequent Infections, Hives, Itching, others Hematologic/Lymphatic: denies: anemia, blood clots, easy bleeding, easy bruising, swollen glands, others Endocrine: denies: excessive hunger, excessive sweating, excessive thirst, excessive urination, flushing, intolerance to cold, intolerance to heat, unexplained weight gain, unexplained weight loss, others Psychiatric: denies: anxiety, bipolar disorder, depression, hopeless, panic disorder, schizophrenia, sleepless, suicidal, others All Other Systems: Reviewed and Negative Physical Exam General Appearance: Moderate Distress HEENT: Normal ENT Inspection, Pharynx Normal, TMs Normal Neck: Full Range of Motion, Non-Tender, Normal, Normal Inspection Respiratory: Chest Non-Tender, Lungs Clear, No Accessory Muscle Use, No Respiratory Distress, Normal Breath Sounds Cardiovascular: No Edema, No JVD, No Murmur, No Gallop, Normal Peripheral Pulses, Tachycardia Breast Exam: Deferred Gastrointestinal: No Organomegaly, Non Tender, No Pulsatile Mass, Normal Bowel Sounds, Soft Genitalia: Deferred Pelvic: Deferred Rectal: Deferred Extremities: No calf tenderness, Normal capillary refill, Normal inspection, Normal range of motion, Non-tender, No pedal edema Musculoskeletal : Apperance: Normal Neurologic: Alert, retail personal banker II-XII nml as Tested, No Motor Deficits, Normal Affect, Normal Mood, No Sensory Deficits Cerebellar Function: NOT DONE Reflexes: NOT DONE Skin: Dry, Normal Color, Warm Peripheral Pulses: 3+ Radial (R), 3+ Radial (L) Lymphatic: No Adenopathy Was a procedure done? Was a procedure done?: No GI differential Dx Differential Diagnosis: Constipation, Diverticular disease, Esophagitis, Gastritis/PUD, Gastroenteritis, Inflammatory BD X-Ray, Labs, Meds, VS Vital Signs Date Time Temp Pulse Resp B/P (MAP) Pulse Ox O2 Delivery O2 Flow Rate FiO2 06/09/24 15:01 97.8 113 16 115/81 (92) 95 97.8 Lab Test 06/09/24 15:29 Range/Units White Blood Count Pending Red Blood Count Pending Hemoglobin Pending Hematocrit Pending Mean Corpuscular Volume Pending Mean Corpuscular Hemoglobin Pending Mean Corpuscular Hemoglobin Concent Pending Red Cell Distribution Width Pending Platelet Count Pending Mean Platelet Volume Pending Neutrophils (%) (Auto) Pending Lymphocytes (%) (Auto) Pending Monocytes (%) (Auto) Pending Basophils (%) (Auto) Pending Neutrophils # (Auto) Pending Lymphocytes # (Auto) Pending Monocytes # (Auto) Pending Sodium Level 128 L 136-145 mmol/L Potassium Level 3.8 3.5-5.1 mmol/L Chloride Level 102 98-107 mmol/L Carbon Dioxide Level 19 L 20-31 mmol/L Anion Gap 7 5-15 Blood Urea Nitrogen 9 9-23 mg/dL Creatinine 0.75 0.700-1.30 mg/dL Glomerular Filtration Rate Calc 105 >90 mL/min BUN/Creatinine Ratio 12.0 10.0-20.0 Serum Glucose 133 H 74-106 mg/dL Calcium Level 10.2 8.7-10.4 mg/dL Patient alert. Tachycardic. Blood pressure within normal limits. Saturation within normal limits pain Abdomen is soft diffusely tender. Slightly distended. Denies suicidal or homicidal ideation. Reviewed his previous visit. Explained to the patient. Continue monitoring. KUB x-ray does show ileus with constipation. Chest x-ray reviewed does not show any acute process. Time of 1ST Reevaluation: 14:59 Reevaluation 1ST: Unchanged Patient Education/Counseling: Diagnosis, Treatment, Prognosis Family Education/Counseling: No Family Present Departure 1 Departure Time of Disposition: 15:06 Impression: Primary Impression: Acute abdominal pain Additional Impressions: Ileus Constipation Qualified Codes: K59.01 - Slow transit constipation Hyperglycemia Disposition: 09 ADMITTED INPATIENT Admit to: Med Surg Condition: Guarded Critical Care Note Critical Care Time?: No Stability Stability form required: No I personally scribed for KENNY YANG MD ([email or web address]) on 06/09/24 at 15:02. Electronically submitted by Ro Meraz ([facility]). KENNY YANG MD Jun 09, 2024 15:02
[2024-06-09 15:38] LABS: Basophils # (auto) 0.1 10 ^3/uL (0-0.2); Basophils % (auto) 0.4 % (0.0-2.0); Eosinophils # (auto) 0 10 ^3/uL (0-0.8); Eosinophils % (auto) 0.1 % (0.0-7.0); Hematocrit 43.8 % (41.0-53.0); Hemoglobin 15.6 g/dL (13.5-17.5); Lymphocytes # (auto) 1.4 10 ^3/uL (0.4-5.4); Lymphocytes % (auto) 9.9 % (10.0-50.0); Mean Corpuscular Hemoglobin 32.6 pg (28.0-32.0); Mean Corpuscular Hgb Conc. 35.6 g/dL (32.0-36.0); Mean Corpuscular Volume 91.6 fL (80.0-100.0); Monocytes # (auto) 0.6 10 ^3/uL (0-1.3); Monocytes % (auto) 3.8 % (0.0-12.0); Neutrophils # (auto) 12.5 10 ^3/uL (1.6-8.6); Neutrophils % (auto) 85.8 % (37.0-80.0); Platelet Count (auto) 371 10^3/uL (140-450); Red Blood Cells 4.78 10^6/uL (4.5-5.90); Red Cell Distribution Width 13.7 % (11.8-14.3); White Blood Cell 14.6 10^3/uL (4.4-10.8)
--- NOTE | 2024-06-09 15:44 | DVH ---
INDICATION: sob TECHNIQUE: Frontal view of the chest. COMPARISON: XY CHEST PORTABLE on DOS: 04/28/24, XY CHEST XRAY 1 VIEW on DOS: 04/27/24, XY CHEST PORTABLE on DOS: 04/26/24, XY CHEST PORTABLE on DOS: 04/26/24, CXRP on DOS: 01/29/22 FINDINGS: . The heart and mediastinal contours are grossly unremarkable. There is no evidence of pleural disea se. The lungs are clear. The bony structures of the chest are intact without fracture. IMPRESSION: 1. No evidence of acute disease.
--- NOTE | 2024-06-09 15:44 | DVH ---
Date: 06/09/2024 03:21 PM Examination: XY KUB ABDOMEN SINGLE VIEW History: constipation Comparison: XY KUB ABDOMEN SINGLE VIEW on DOS: 05/02/24, XY KUB ABDOMEN SINGLE VIEW on DOS: 04/29/24, X Y KUB ABDOMEN SINGLE VIEW on DOS: 04/27/24 TECHNIQUE: Frontal views of the abdomen was obtained. FINDINGS: Bowel gas pattern is unremarkable. The lung bases are unremarkable. No acute osseous abnormality identified. IMPRESSION: Nonobstructive bowel gas pattern. Large stool burden.
[2024-06-09 15:46] LABS: Chloride 102 mmol/L (98-107); Potassium 3.8 mmol/L (3.5-5.1)
[2024-06-09 15:47] LABS: Anion Gap 7 (5-15)
[2024-06-09 15:48] LABS: Calcium 10.2 mg/dL (8.7-10.4)
[2024-06-09 15:55] LABS: Blood Urea Nitrogen 9 mg/dL (9-23); Carbon Dioxide 19 mmol/L (20-31); Glucose 133 mg/dL (74-106); Sodium 128 mmol/L (136-145)
--- NOTE | 2024-06-09 22:14 | DVHHPRES ---
History of Present Illness Resident Creating Document: ASIF NESBITT RESIDENT History of Present Illness Mr Cleary is a 59-year-old male patient with past medical history of COPD on 3 L home oxygen at nighttime, congestive heart failure with EF 45%, history of peripheral arterial disease in anterior tibial artery was unable to salo scularize on medical management, ETOH use dependence, nicotine dependence, bipolar disorder who presented to the ER chief complaint of abdominal pain patient for the past 2 days. Patient was recently seen in this facility last month 05/02/2024 for leukocytosis with stool impaction and hypotension requiring Levophed. Stool culture was negative at the time. He was treated medically with edema. Patient reports that he has not had a bowel movement for the past 5 days. Reports lower abdominal diffuse pain 7/10 associated with fever, chills, feeling of cold, nausea and 1 X vomiting which was clear. He takes [place] 10 mg thrice daily, last dose was 2 days back for chronic back pain. He denies any urinary symptoms at this point. Also takes Dulcolax and stool softeners at home. Past medical history: See above PCP: Dr. HERNANDEZ Social history: Lives with father age 92, smokes a pack a day for the past 40 years, quit drinking 2 years ago, smokes marijuana. On arrival to the ER, patient was afebrile, pulse was in 90s, normotensive and breathing on room air at 97 saturation. WBC 14.6 with 85% neutrophils. BMP showed chronic hyponatremia, sodium 128. KUB showed nonobstructive bowel gas pattern with large stool burden. Patient had a large bowel movement earlier this morning of 06/10. Enema and MiraLax ordered pending. Family History: None Smoke: 1 pack per day ALCOHOL: occassional Drugs: None Lives: with Family Review of Systems Constitutional: Yes: Fever, Chills, Weakness Gastrointestinal: Nausea, Vomiting, Abdominal Pain, Constipation Allergies: Coded Allergies: NO KNOWN ALLERGIES (Unverified , 06/21/09) Exam Vital Signs Vital Signs Date Time Temp Pulse Resp B/P (MAP) Pulse Ox O2 Delivery O2 Flow Rate FiO2 06/09/24 19:51 97.5 98 20 115/73 (87) 97 97.5 06/09/24 19:51 Room Air Exam Patient sitting in a chair comfortably in, no acute distress General: Well-built, afebrile, palor, mucosae are moist Cardiovascular: Regular S1 and S2. No murmurs, gallops or rubs. No JVD elevation. No pedal edema Respiratory: Normal B/L air entry on room air. Clear lung sounds on auscultation Abdomen: Soft, nontender, nondistended, hyperactive bowel sounds, no rebound tenderness, no organomegaly, no masses Genitourinary: Deferred MSK/skin: Mobilizes 4 limbs. Skin is dry and warm Neurological: No motor, no sensitive deficits, normal speech. Pupils are isocoric and reactive. Psych/Mental Status: A/Ox3 Labs/Xrays Labs Test 06/09/24 15:29 Range/Units White Blood Count 14.6 H 4.4-10.8 10^3/uL Red Blood Count 4.78 4.5-5.90 10^6/uL Hemoglobin 15.6 13.5-17.5 g/dL Hematocrit 43.8 41.0-53.0 % Mean Corpuscular Volume 91.6 80.0-100.0 fL Mean Corpuscular Hemoglobin 32.6 H 28.0-32.0 pg Mean Corpuscular Hemoglobin Concent 35.6 32.0-36.0 g/dL Red Cell Distribution Width 13.7 11.8-14.3 % Platelet Count 371 140-450 10^3/uL Mean Platelet Volume 6.9 6.9-10.8 fL Neutrophils (%) (Auto) 85.8 H 37.0-80.0 % Lymphocytes (%) (Auto) 9.9 L 10.0-50.0 % Monocytes (%) (Auto) 3.8 0.0-12.0 % Eosinophils (%) (Auto) 0.1 0.0-7.0 % Basophils (%) (Auto) 0.4 0.0-2.0 % Neutrophils # (Auto) 12.5 H 1.6-8.6 10 ^3/uL Lymphocytes # (Auto) 1.4 0.4-5.4 10 ^3/uL Monocytes # (Auto) 0.6 0-1.3 10 ^3/uL Eosinophils # (Auto) 0 0-0.8 10 ^3/uL Basophils # (Auto) 0.1 0-0.2 10 ^3/uL Nucleated Red Blood Cells 0.0 % Sodium Level 128 L 136-145 mmol/L Potassium Level 3.8 3.5-5.1 mmol/L Chloride Level 102 98-107 mmol/L Carbon Dioxide Level 19 L 20-31 mmol/L Anion Gap 7 5-15 Blood Urea Nitrogen 9 9-23 mg/dL Creatinine 0.75 0.700-1.30 mg/dL Glomerular Filtration Rate Calc 105 >90 mL/min BUN/Creatinine Ratio 12.0 10.0-20.0 Serum Glucose 133 H 74-106 mg/dL Calcium Level 10.2 8.7-10.4 mg/dL Assessment/Plan Assessment/Plan Acute gastroenteritis, likely etiology infectious Constipation, likely opioid induced. Intractable nausea and vomiting COPD on 3 L home oxygen at nighttime History of heart failure with reduced ejection fraction-EF 45% Peripheral arterial disease-anterior tibial-unable to revascularize-on medical management Chronic Hyponatremia Bipolar disorder Chronic nicotine dependence History of ETOH dependence Chronic back pain Plan: Per patient, he had a large bowel movement 06/10 midnight. IV ceftriaxone, IV metronidazole starting 06/10 IV Zofran q.6 hour Clear liquid diet Fleet enema ordered, MiraLax and docusate Physical therapy consulted Pantoprazole 40 mg daily Lovenox 40 mg sc daily Plan discussed with patient in which all questions have been answered Goals of care discussed for more than 20 minutes, full code status Case discussed with Dr. Cai Plan discussed with: Patient Date of Service: Jun 09, 2024 Billing Provider: JUSTIN CAI MD Common Visit Codes: [id number] INP/OBS CARE (HIGH) ASIF NESBITT RESIDENT Jun 09, 2024 22:14 JUSTIN CAI MD Jun 10, 2024 21:04
[2024-06-10] VITALS (9 sets, daily range): BP systolic 105–123; BP diastolic 66–79; PULSE 72–99; RESP 14–18; TEMP 97.4–97.8; O2SAT 93–97
[2024-06-10] MEDS: FLEET ENEMA(ADULT) 135 ML PR ONE (01:07)
[2024-06-10] MEDS: cefTRIAXone 1GM/50ML D5W 50 ML IV ONE (01:16)
[2024-06-10] MEDS: PANTOPRAZOLE 40 MG/10 ML VIAL INJ IV ONE (01:16)
[2024-06-10] MEDS: KETOROLAC TROMETH 30 MG/ML 1ML VIAL IV ONE (01:17)
[2024-06-10] MEDS: SIMETHICONE 80 MG CHEWABLE TABLET PO ONE (01:24)
[2024-06-10] MEDS: POLYETHYLENE GLYCOL 17 GM PWDR PO ONE (01:24)
[2024-06-10] MEDS: DOCUSATE SOD 100 MG CAP PO ONE (01:24)
[2024-06-10] MEDS: LIDOCAINE 5% TOPICAL PATCH TOP ONE (01:25)
[2024-06-10] MEDS: metroNIDAZOLE 500MG/100ML 100 ML IV ONE (02:50)
[2024-06-10] MEDS ORDERED: ONDANSETRON HCL 4 MG/2 ML VIAL IV PRN (03:00)
[2024-06-10 03:44] LABS: Alanine Aminotransferase 19 U/L (7-40); Albumin 4.7 g/dL (3.2-4.8); Alkaline Phosphatase 115 U/L (46-116); Anion Gap 7 (5-15); Aspartate Aminotransferase 13 U/L (13-40); BUN/Creatinine Ratio 12.8 (10.0-20.0); Blood Urea Nitrogen 11 mg/dL (9-23); Calcium 10.1 mg/dL (8.7-10.4); Chloride 105 mmol/L (98-107); Potassium 3.5 mmol/L (3.5-5.1); Total Protein 7.7 g/dL (5.7-8.2)
[2024-06-10 03:45] LABS: Bilirubin, Total 0.4 mg/dL (0.2-1.0)
[2024-06-10 03:46] LABS: Carbon Dioxide 19 mmol/L (20-31); Glucose 130 mg/dL (74-106); Sodium 131 mmol/L (136-145)
[2024-06-10 03:49] LABS: INR 1.03 (0.9-1.15); Partial Thromboplastin Time 29.1 SEC (24.5-34.5); Prothrombin Time 10.9 sec (9.3-11.8)
[2024-06-10 04:43] LABS: Basophils # (auto) 0.3 10 ^3/uL (0-0.2); Basophils % (auto) 2.1 % (0.0-2.0); Eosinophils # (auto) 0 10 ^3/uL (0-0.8); Eosinophils % (auto) 0.3 % (0.0-7.0); Hemoglobin 15.1 g/dL (13.5-17.5); Lymphocytes # (auto) 1.7 10 ^3/uL (0.4-5.4); Lymphocytes % (auto) 12.7 % (10.0-50.0); Mean Corpuscular Hemoglobin 32.6 pg (28.0-32.0); Mean Corpuscular Hgb Conc. 35.1 g/dL (32.0-36.0); Mean Corpuscular Volume 92.9 fL (80.0-100.0); Monocytes # (auto) 1.1 10 ^3/uL (0-1.3); Monocytes % (auto) 8.8 % (0.0-12.0); Neutrophils # (auto) 9.9 10 ^3/uL (1.6-8.6); Neutrophils % (auto) 76.1 % (37.0-80.0); Nucleated Red Blood Cells % 0.1 %; Platelet Count (auto) 383 10^3/uL (140-450); Red Blood Cells 4.62 10^6/uL (4.5-5.90); Red Cell Distribution Width 13.4 % (11.8-14.3)
[2024-06-10] MEDS: ACETAMINOPHEN 325 MG TAB PO PRN (06:07)
[2024-06-10 07:45] LABS: Urine Bacteria None Seen /hpf (None Seen); Urine Blood Negative /uL (Negative); Urine Clarity Clear (Clear); Urine Color Yellow (Yellow); Urine Hyaline Cast FEW /lpf (0 - 2); Urine Protein, UAD Negative (Negative); Urine Specific Gravity 1.013 (1.001-1.035); Urine Squamous Epithelial Cell None Seen /hpf (<5); Urine Urobilinogen Normal (Negative); Urine WBC 1 /HPF (0-3); Urine pH 5.5 (5.0-9.0)
[2024-06-10 08:12] LABS: Cannabinoid Screen, Urine Pos (NEGATIVE); Opiate Scree,Urine Neg (NEGATIVE); Phencyclidine Screen, Urine Neg (NEGATIVE)
[2024-06-10 08:14] LABS: Amphetamine Screen, Urine Neg (NEGATIVE); Barbiturate Scree,Urine Neg (NEGATIVE); Benzodiazephine Screen, Urine Neg (NEGATIVE); Cocaine Screen, Urine Neg (NEGATIVE)
--- NOTE | 2024-06-10 08:47 | DVHPN2 ---
Progress Note - Dictate Date Seen: Jun 09, 2024 Subjective ABD PAIN ABD DISTENSION STOOL IMPACTION HYPOTENSION LEUKOCYTOSIS WITH LEFT SHIFT LEUKOCYTOSIS NOW PT WITH BOWEL EMPTYING SX ARE IMPROVING HX OF CAD EF45% COPD/ ON HOME O2 TOBACCO USE ETOH USE HX OF GASTROPARESIS PAD Right lower extremity angiography revealed: * Right common iliac without any flow restrictive lesion. * Right external and internal iliac without any flow restrictive lesion. * Right common femoral without any flow restrictive lesion. * Right profunda and superficial femoral artery without any flow restrictive lesion. * Right popliteal, tibioperoneal trunk, anterior tibial, posterior tibial and the peroneal arteries were all patent all the way down to the ankle. Left lower extremity angiography revealed: * Left common iliac without any flow restrictive lesion. * Left common external and internal iliacs without any flow restrictive lesion. * Left common femoral without any flow restrictive lesion. * Left profunda and superficial femoral artery without any flow restrictive lesion. * Left popliteal, tibioperoneal trunk, posterior tibial and the peroneal arteries without any flow restrictive lesion. * Anterior tibial, however, is occluded at the level of the ankle. Unable to revascularize because of collateral circulation both from the posterior tibial and peroneal arteries. Furthermore, because of the heart rate that he has, I believe that is what compromises his circulation. At this time, the patient is having adequate supply to the ankle. There is no indication for revascularization of the anterior tibial at this time, especially with collateral circulation. Conservative medical management will be implemented. NATACHA/ WITH MULTIPLE ANKLE SURGERIES DEPRESSION HTN vital signs Vital Sign Date Time Temp Pulse Resp B/P (MAP) Pulse Ox O2 Delivery O2 Flow Rate FiO2 06/10/24 03:58 98.4 84 15 127/80 (96) 95 98.4 06/09/24 19:51 Room Air Total Intake and Output 06/09/24 06/09/24 06/10/24 15:00 23:00 07:00 Intake Total 150 ml Balance 150 ml medications Current Medications Medications Dose Ordered Sig/Clarence Route Start Time Stop Time Status Last Admin Dose Admin Docusate Sodium 100 mg BID PO 06/10/24 10:00 Polyethylene Glycol 17 gm DAILY PO 06/10/24 10:00 Enoxaparin Sodium 40 mg DAILY SC 06/10/24 10:00 Acetaminophen 650 mg Q4HP PRN PO 06/10/24 00:45 06/10/24 06:07 650 MG Lidocaine 1 patch DAILY TOP 06/11/24 10:00 Pantoprazole Sodium 40 mg DAILY IV 06/10/24 10:00 Ceftriaxone Sodium 50 ml @ 100 mls/hr DAILY@09 IV 06/11/24 09:00 Metronidazole 100 ml @ 100 mls/hr Q8HR IV 06/10/24 14:00 Ondansetron HCl 4 mg Q6HPRN PRN IV 06/10/24 03:00 laboratory and microbiology Laboratory Tests 06/10/24 04:29 06/10/24 03:03 Test 06/10/24 03:03 Range/Units Serum Glucose 130 H 74-106 mg/dL Problem List ABD DISTENSION STOOL IMPACTION HYPOTENSION LEUKOCYTOSIS WITH LEFT SHIFT LEUKOCYTOSIS NOW PT WITH BOWEL EMPTYING HYPONATREMIA HX OF CAD EF45% COPD/ ON HOME O2 TOBACCO USE ETOH USE HX OF GASTROPARESIS PAD Right lower extremity angiography revealed: * Right common iliac without any flow restrictive lesion. * Right external and internal iliac without any flow restrictive lesion. * Right common femoral without any flow restrictive lesion. * Right profunda and superficial femoral artery without any flow restrictive lesion. * Right popliteal, tibioperoneal trunk, anterior tibial, posterior tibial and the peroneal arteries were all patent all the way down to the ankle. Left lower extremity angiography revealed: * Left common iliac without any flow restrictive lesion. * Left common external and internal iliacs without any flow restrictive lesion. * Left common femoral without any flow restrictive lesion. * Left profunda and superficial femoral artery without any flow restrictive lesion. * Left popliteal, tibioperoneal trunk, posterior tibial and the peroneal arteries without any flow restrictive lesion. * Anterior tibial, however, is occluded at the level of the ankle. Unable to revascularize because of collateral circulation both from the posterior tibial and peroneal arteries. Furthermore, because of the heart rate that he has, I believe that is what compromises his circulation. At this time, the patient is having adequate supply to the ankle. There is no indication for revascularization of the anterior tibial at this time, especially with collateral circulation. Conservative medical management will be implemented. NATACHA/ WITH MULTIPLE ANKLE SURGERIES DEPRESSION HTN Assessment/Plan OPIOID INDUCED CONSTIPATION LINZESS 290 MCG PO QD LACTULOSE Critical Care Time(min): 35 ROBERT CHRISTENSEN MD Jun 10, 2024 08:47
[2024-06-10] MEDS: ENOXAPARIN SOD 40 MG/0.4 ML SYRINGE SC SCH (09:13)
[2024-06-10] MEDS: POLYETHYLENE GLYCOL 17 GM PWDR PO SCH (09:13)
[2024-06-10] MEDS: DOCUSATE SOD 100 MG CAP PO SCH (09:13)
[2024-06-10] MEDS: PANTOPRAZOLE 40 MG/10 ML VIAL INJ IV SCH (09:13)
[2024-06-10] MEDS: HYDROcodone-ACET 5/325MG TAB PO PRN (12:06)
--- NOTE | 2024-06-10 13:29 | DVHPNRES ---
Progress Note Date Seen: Jun 10, 2024 Resident Creating Document: KOLBY MENDES RESIDENT Medical Necessity Reason Pt with a Central, PICC or Fol: No Subjective Review of Systems This is a 59-year-old male with past medical history of COPD on 3 L home oxygen at nighttime, CHF with EF 45%, PAD, chronic back pain, Alcohol use disorder, nicotine dependence, bipolar disorder presented to the ED with a chief complaint of abdominal pain and constipation for 2 days prior to this admission. Patient was recently seen in this facility last month 05/02/2024 for leukocytosis with stool impaction and hypotension requiring Levophed. the patient's reports that he has not had a bowel movement for the last 5 days and also complaint of lower abdominal diffuse pain which was 7/10, associated with fever chills feeling of cold, nausea and vomiting. takes [place] 10 mg 3 times a day and last dose was 2 days back for chronic back pain and also takes Dulcolax and stool softener at home. and denies chest pain, shortness of breath, hematemesis, hematochezia, dysuria. patient was seen and examined on the bedside. he is alert oriented x3. mentioned large bowel movement 2 times in the morning and also complaint of mild diffuse abdominal pain and back pain. Constitutional: No: Fever, Chills, Sweats, Weakness, Malaise, Other Eyes: No: Pain, Vision change, Conjunctivae inflammation, Eyelid inflammation, Other, Redness ENT: No: Ear pain, Ear discharge, Nose pain, Nose discharge, Nose congestion, Mouth pain, Mouth swelling, Throat pain, Throat swelling, Other Respiratory: Shortness of breath, improving No: Cough, Dry,Wheezing, Hemoptysis, Pleuritic Pain, Sputum, Wheezing, Other Cardiovascular: No: Chest Pain, Palpitations, Orthopnea, Paroxysmal Noc. Dyspnea, Edema, Lt Headedness, Other Gastrointestinal: Nausea, Vomiting, Abdominal Pain, Constipation,No diarrhoea, Melena, Hematochezia, Other Musculoskeletal: No: other, neck pain, shoulder pain, arm pain, back pain, hand pain, leg pain, foot pain Neurological:; No: Weakness, Numbness, Incoordination, Change in speech, Confusion, Seizures Objective vital signs Vital Sign Date Time Temp Pulse Resp B/P (MAP) Pulse Ox O2 Delivery O2 Flow Rate FiO2 06/10/24 12:05 98.1 81 16 119/67 (86) 93 98.1 06/10/24 09:03 Room Air* 0 21 Total Intake and Output 06/09/24 06/09/24 06/10/24 15:00 23:00 07:00 Intake Total 150 ml Balance 150 ml medications Current Medications Medications Dose Ordered Sig/Clarence Route Start Time Stop Time Status Last Admin Dose Admin Docusate Sodium 100 mg BID PO 06/10/24 10:00 06/10/24 09:13 100 MG Polyethylene Glycol 17 gm DAILY PO 06/10/24 10:00 06/10/24 09:13 17 GM Enoxaparin Sodium 40 mg DAILY SC 06/10/24 10:00 06/10/24 09:13 40 MG Acetaminophen 650 mg Q4HP PRN PO 06/10/24 00:45 06/10/24 06:07 650 MG Lidocaine 1 patch DAILY TOP 06/11/24 10:00 Pantoprazole Sodium 40 mg DAILY IV 06/10/24 10:00 06/10/24 09:13 40 MG Ceftriaxone Sodium 50 ml @ 100 mls/hr DAILY@09 IV 06/11/24 09:00 Metronidazole 100 ml @ 100 mls/hr Q8HR IV 06/10/24 14:00 Ondansetron HCl 4 mg Q6HPRN PRN IV 06/10/24 03:00 Acetaminophen/ Hydrocodone Bitart 1 tab Q4HPRN PRN PO 06/10/24 12:00 06/10/24 12:06 1 TAB Examination Physical examination: General Appearance: Alert, Oriented X3, Cooperative, No acute distress HEENT: Atraumatic, PERRLA, EOMI, Mucous membrane moist/pink Respiratory: Clear to auscultation, Normal air movement Cardiovascular: Regular rate, Normal S1, Normal S2, No murmurs, no chest wall tenderness Abdominal: Normal bowel sounds, Soft, mild tenderness, No hepatospenomegaly, No masses Extremities: No clubbing, No cyanosis, No edema, Normal pulses, No tenderness/swelling Skin: No rashes, No breakdown, No significant lesion Neuro: Normal gait, Normal speech, Strength at 5/5 X4 ext, Normal tone, Sensation intact,grossly intact cranial nerves. Psych/Mental Status: Mental status NL, Mood NL laboratory and microbiology Laboratory Tests 06/10/24 04:29 06/10/24 03:03 Test 06/10/24 03:03 Range/Units Serum Glucose 130 H 74-106 mg/dL Labs and/or images reviewed: Labs reviewed by me, Image(s) reviewed by me Problem List/Assessment/Plan Problem List/Assessment/Plan Assessment and plan: # Intractable nausea and vomiting likely due to viral gastroenteritis # Constipation likely opioid induced # Posssible stercoral colitis secondary to constipation - Plain Xray KUB abdomen demonstrated nonobstructive bowel gas pattern and large stool burden - Clear liquid diet - Fleet enema once, MiraLax powder daily and Colace 100 mg b.i.d. - Ordered stool for WBC - IV ceftriaxone 1 g daily and IV metronidazole 500 mg t.i.d. - IV Zofran 4 mg Q 8 p.r.n. # Peripheral arterial disease-anterior tibial-unable to revascularize-on medical management # Chronic back pain - Lidocaine patch daily, [place] 5/325 mg Q 4 PRN - Physical therapy # Chronic COPD on home oxygen 3 L - Med neb with albuterol and ipratropium q.6 p.r.n. # Chronic systolic heart failure with mildly reduced ejection fraction 45-50% ( 03/15) - blood pressure is on the lower side # bipolar disorder - continue home meds # Nicotine dependence # History of alcohol use disorder - 30 pack year smoking history - counseled patient regarding quit smoking, cessation of drinking and rehabilitation. # PUD prophylaxis - Protonix 40 mg p.o. daily # DVT prophylaxis - Lovenox 40 mg sc daily Goal of care discussed with the patient for more than 20 minutes full code Plan discussed with Dr. Cai Plan discussed with: Patient, Other My Orders My Orders Orders - KOLBY MENDES RESIDENT Procedure Category Date Status Time Hydrocodone-Acet PHA 06/10/24 In Process 5/325mg Tab ([place] 12:00 Date of Service: Jun 10, 2024 Billing Provider: JUSTIN CAI MD Common Visit Codes: [id number] INP/OBS CARE(HIGH) KOLBY MENDES Jun 10, 2024 13:29 JUSTIN CAI MD Jun 10, 2024 21:55
[2024-06-10] MEDS: metroNIDAZOLE 500MG/100ML 100 ML IV SCH (15:17)
[2024-06-10 19:10] LABS: Base Excess -1.2 mmol/L (-2.0-3.0)
[2024-06-11] VITALS (11 sets, daily range): BP systolic 123–133; BP diastolic 76–88; PULSE 67–85; RESP 15–21; TEMP 97.7–98.7; O2SAT 93–99
[2024-06-11 06:10] LABS: Basophils # (auto) 0 10 ^3/uL (0-0.2); Basophils % (auto) 0.6 % (0.0-2.0); Eosinophils # (auto) 0.1 10 ^3/uL (0-0.8); Eosinophils % (auto) 2.5 % (0.0-7.0); Hemoglobin 15.3 g/dL (13.5-17.5); Lymphocytes # (auto) 1.5 10 ^3/uL (0.4-5.4); Mean Corpuscular Hemoglobin 32.2 pg (28.0-32.0); Mean Corpuscular Volume 94.7 fL (80.0-100.0); Monocytes # (auto) 0.8 10 ^3/uL (0-1.3); Monocytes % (auto) 13.4 % (0.0-12.0); Neutrophils # (auto) 3.2 10 ^3/uL (1.6-8.6); Neutrophils % (auto) 57.5 % (37.0-80.0); Nucleated Red Blood Cells % 0.2 %; Platelet Count (auto) 322 10^3/uL (140-450); Red Blood Cells 4.75 10^6/uL (4.5-5.90); Red Cell Distribution Width 13.5 % (11.8-14.3); White Blood Cell 5.6 10^3/uL (4.4-10.8)
[2024-06-11 06:31] LABS: Calcium 9.9 mg/dL (8.7-10.4); Chloride 105 mmol/L (98-107); Potassium 3.9 mmol/L (3.5-5.1)
[2024-06-11 06:32] LABS: Anion Gap 6 (5-15); Carbon Dioxide 23 mmol/L (20-31)
[2024-06-11 06:34] LABS: Sodium 134 mmol/L (136-145)
[2024-06-11 06:37] LABS: BUN/Creatinine Ratio 9.2 (10.0-20.0)
[2024-06-11 06:44] LABS: Blood Urea Nitrogen 7 mg/dL (9-23); Glucose 107 mg/dL (74-106)
--- NOTE | 2024-06-11 08:41 | DVHPN2 ---
Progress Note - Dictate Date Seen: Jun 10, 2024 Medical Necessity Reason Pt with a Central, PICC or Fol: No Subjective ABD PAIN ABD DISTENSION STOOL IMPACTION HYPOTENSION LEUKOCYTOSIS WITH LEFT SHIFT LEUKOCYTOSIS NOW PT WITH BOWEL EMPTYING SX ARE IMPROVING HX OF CAD EF45% COPD/ ON HOME O2 TOBACCO USE ETOH USE HX OF GASTROPARESIS PAD Right lower extremity angiography revealed: * Right common iliac without any flow restrictive lesion. * Right external and internal iliac without any flow restrictive lesion. * Right common femoral without any flow restrictive lesion. * Right profunda and superficial femoral artery without any flow restrictive lesion. * Right popliteal, tibioperoneal trunk, anterior tibial, posterior tibial and the peroneal arteries were all patent all the way down to the ankle. Left lower extremity angiography revealed: * Left common iliac without any flow restrictive lesion. * Left common external and internal iliacs without any flow restrictive lesion. * Left common femoral without any flow restrictive lesion. * Left profunda and superficial femoral artery without any flow restrictive lesion. * Left popliteal, tibioperoneal trunk, posterior tibial and the peroneal arteries without any flow restrictive lesion. * Anterior tibial, however, is occluded at the level of the ankle. Unable to revascularize because of collateral circulation both from the posterior tibial and peroneal arteries. Furthermore, because of the heart rate that he has, I believe that is what compromises his circulation. At this time, the patient is having adequate supply to the ankle. There is no indication for revascularization of the anterior tibial at this time, especially with collateral circulation. Conservative medical management will be implemented. NATACHA/ WITH MULTIPLE ANKLE SURGERIES DEPRESSION HTN vital signs Vital Sign Date Time Temp Pulse Resp B/P (MAP) Pulse Ox O2 Delivery O2 Flow Rate FiO2 06/11/24 06:15 96 Room Air* 0 21 06/11/24 05:00 97.9 80 19 129/88 (102) 97.9 Total Intake and Output 06/10/24 06/10/24 06/11/24 15:00 23:00 07:00 Intake Total 400 ml 925 ml Balance 400 ml 925 ml medications Current Medications Medications Dose Ordered Sig/Clarence Route Start Time Stop Time Status Last Admin Dose Admin Docusate Sodium 100 mg BID PO 06/10/24 10:00 06/10/24 21:05 100 MG Polyethylene Glycol 17 gm DAILY PO 06/10/24 10:00 06/10/24 09:13 17 GM Enoxaparin Sodium 40 mg DAILY SC 06/10/24 10:00 06/10/24 09:13 40 MG Acetaminophen 650 mg Q4HP PRN PO 06/10/24 00:45 06/11/24 07:34 650 MG Lidocaine 1 patch DAILY TOP 06/11/24 10:00 Pantoprazole Sodium 40 mg DAILY IV 06/10/24 10:00 06/10/24 09:13 40 MG Ceftriaxone Sodium 50 ml @ 100 mls/hr DAILY@09 IV 06/11/24 09:00 Metronidazole 100 ml @ 100 mls/hr Q8HR IV 06/10/24 14:00 06/11/24 05:02 100 MLS/HR Ondansetron HCl 4 mg Q6HPRN PRN IV 06/10/24 03:00 Acetaminophen/ Hydrocodone Bitart 1 tab Q4HPRN PRN PO 06/10/24 12:00 06/10/24 21:52 1 TAB Albuterol 2.5 mg Q6HPRN PRN NEB 06/10/24 13:45 Ipratropium Elliott 0.5 mg Q6HPRN PRN NEB 06/10/24 13:45 laboratory and microbiology Laboratory Tests 06/11/24 05:13 Test 06/11/24 05:13 Range/Units Serum Glucose 107 H 74-106 mg/dL Problem List ABD DISTENSION STOOL IMPACTION HYPOTENSION LEUKOCYTOSIS WITH LEFT SHIFT LEUKOCYTOSIS NOW PT WITH BOWEL EMPTYING HYPONATREMIA HX OF CAD EF45% COPD/ ON HOME O2 TOBACCO USE ETOH USE HX OF GASTROPARESIS PAD Right lower extremity angiography revealed: * Right common iliac without any flow restrictive lesion. * Right external and internal iliac without any flow restrictive lesion. * Right common femoral without any flow restrictive lesion. * Right profunda and superficial femoral artery without any flow restrictive lesion. * Right popliteal, tibioperoneal trunk, anterior tibial, posterior tibial and the peroneal arteries were all patent all the way down to the ankle. Left lower extremity angiography revealed: * Left common iliac without any flow restrictive lesion. * Left common external and internal iliacs without any flow restrictive lesion. * Left common femoral without any flow restrictive lesion. * Left profunda and superficial femoral artery without any flow restrictive lesion. * Left popliteal, tibioperoneal trunk, posterior tibial and the peroneal arteries without any flow restrictive lesion. * Anterior tibial, however, is occluded at the level of the ankle. Unable to revascularize because of collateral circulation both from the posterior tibial and peroneal arteries. Furthermore, because of the heart rate that he has, I believe that is what compromises his circulation. At this time, the patient is having adequate supply to the ankle. There is no indication for revascularization of the anterior tibial at this time, especially with collateral circulation. Conservative medical management will be implemented. NATACHA/ WITH MULTIPLE ANKLE SURGERIES DEPRESSION HTN Assessment/Plan OPIOID INDUCED CONSTIPATION [place] 290 MCG PO QD LACTULOSE MULTILE BOWEL MOVEMENTS CHECK KUB IF RESOLVED MAY DC HOME ON LACTULOSE Plan discussed with: Patient ROBERT CHRISTENSEN MD Jun 11, 2024 08:41
[2024-06-11] MEDS: cefTRIAXone 1GM/50ML D5W 50 ML IV SCH (09:17)
[2024-06-11] MEDS: LIDOCAINE 5% TOPICAL PATCH TOP SCH (09:18)
[2024-06-11] MEDS ORDERED: LINA290C OR (11:04)
[2024-06-11] MEDS ORDERED: LACT10SO3 PO (11:04)
[2024-06-11] MEDS: GASTROGRAFIN 120 ML SOL ONE (12:14)
--- NOTE | 2024-06-11 12:15 | DVH ---
Date: 06/11/2024 09:16 AM Examination: XY KUB ABDOMEN SINGLE VIEW History: CONSTIPATION Comparison: XY KUB ABDOMEN SINGLE VIEW on DOS: 06/09/24, XY KUB ABDOMEN SINGLE VIEW on DOS: 05/02/24, X Y KUB ABDOMEN SINGLE VIEW on DOS: 04/29/24, XY KUB ABDOMEN SINGLE VIEW on DOS: 04/27/24 TECHNIQUE: Frontal views of the abdomen was obtained. FINDINGS: Bowel gas pattern is unremarkable. The lung bases are unremarkable. No acute osseous abnormality identified. IMPRESSION: Nonobstructive bowel gas pattern.
[2024-06-11] MEDS: LACTULOSE 20Gm/30ML SOLN PO ONE (13:39)
--- NOTE | 2024-06-11 14:48 | DVHPNRES ---
Progress Note Date Seen: Jun 11, 2024 Resident Creating Document: KOLBY MENDES RESIDENT Medical Necessity Reason Pt with a Central, PICC or Fol: No Subjective Review of Systems Patient was seen and examined on the bedside. He is alert oriented x3. Complaint of mild abdominal discomfort and not having any bowel movements since yesterday. Given lactulose 60 mL once and ordered Gastrografin small bowel series. Possible discharge tomorrow Objective vital signs Vital Sign Date Time Temp Pulse Resp B/P (MAP) Pulse Ox O2 Delivery O2 Flow Rate FiO2 06/11/24 12:34 97.8 75 18 126/76 (93) 98 97.8 06/11/24 08:15 Room Air* 0 21 Total Intake and Output 06/10/24 06/10/24 06/11/24 15:00 23:00 07:00 Intake Total 400 ml 925 ml Balance 400 ml 925 ml medications Current Medications Medications Dose Ordered Sig/Clarence Route Start Time Stop Time Status Last Admin Dose Admin Docusate Sodium 100 mg BID PO 06/10/24 10:00 06/11/24 09:17 100 MG Polyethylene Glycol 17 gm DAILY PO 06/10/24 10:00 06/11/24 09:17 17 GM Enoxaparin Sodium 40 mg DAILY SC 06/10/24 10:00 06/11/24 09:19 40 MG Acetaminophen 650 mg Q4HP PRN PO 06/10/24 00:45 06/11/24 07:34 650 MG Lidocaine 1 patch DAILY TOP 06/11/24 10:00 Pantoprazole Sodium 40 mg DAILY IV 06/10/24 10:00 06/11/24 09:17 40 MG Ceftriaxone Sodium 50 ml @ 100 mls/hr DAILY@09 IV 06/11/24 09:00 06/11/24 09:17 100 MLS/HR Metronidazole 100 ml @ 100 mls/hr Q8HR IV 06/10/24 14:00 06/11/24 13:40 100 MLS/HR Ondansetron HCl 4 mg Q6HPRN PRN IV 06/10/24 03:00 Acetaminophen/ Hydrocodone Bitart 1 tab Q4HPRN PRN PO 06/10/24 12:00 06/11/24 12:07 1 TAB Albuterol 2.5 mg Q6HPRN PRN NEB 06/10/24 13:45 Ipratropium [place] 0.5 mg Q6HPRN PRN NEB 06/10/24 13:45 Examination Physical examination: General Appearance: Alert, Oriented X3, Cooperative, No acute distress HEENT: Atraumatic, PERRLA, EOMI, Mucous membrane moist/pink Respiratory: Clear to auscultation, Normal air movement Cardiovascular: Regular rate, Normal S1, Normal S2, No murmurs, no chest wall tenderness Abdominal: Normal bowel sounds, Soft, no tenderness, No hepatospenomegaly, No masses Extremities: No clubbing, No cyanosis, No edema, Normal pulses, No tenderness/swelling Skin: No rashes, No breakdown, No significant lesion Neuro: Normal gait, Normal speech, Strength at 5/5 X4 ext, Normal tone, Sensation intact,grossly intact cranial nerves. Psych/Mental Status: Mental status NL, Mood NL laboratory and microbiology Laboratory Tests 06/11/24 05:13 Test 06/11/24 05:13 Range/Units Serum Glucose 107 H 74-106 mg/dL Labs and/or images reviewed: Labs reviewed by me, Image(s) reviewed by me Problem List/Assessment/Plan Problem List/Assessment/Plan Assessment and plan: # Intractable nausea and vomiting likely due to viral gastroenteritis # Constipation likely opioid induced # Posssible stercoral colitis secondary to constipation - Plain Xray KUB abdomen demonstrated nonobstructive bowel gas pattern and large stool burden - Clear liquid diet - Fleet enema once, MiraLax powder daily and Colace 100 mg b.i.d. - Lactulose 60 ml once - Ordered gastrograffin small bowel series - IV ceftriaxone 1 g daily and IV metronidazole 500 mg t.i.d. - IV Zofran 4 mg Q 8 p.r.n. # Peripheral arterial disease-anterior tibial-unable to revascularize-on medical management # Chronic back pain - Lidocaine patch daily, [place] 5/325 mg Q 4 PRN - Physical therapy # Chronic COPD on home oxygen 3 L - Med neb with albuterol and ipratropium q.6 p.r.n. # Chronic systolic heart failure with mildly reduced ejection fraction 45-50% ( 03/15) - blood pressure is on the lower side # bipolar disorder - continue home meds # Nicotine dependence # History of alcohol use disorder - 30 pack year smoking history - counseled patient regarding quit smoking, cessation of drinking and rehabilitation. # PUD prophylaxis - Protonix 40 mg p.o. daily # DVT prophylaxis - Lovenox 40 mg sc daily Goal of care discussed with the patient for more than 20 minutes full code Plan discussed with Dr. Cai Plan discussed with: Patient, Other My Orders My Orders Orders - KOLBY MENDES Procedure Category Date Status Time Abg W/ Co-Ox RT 06/10/24 Logged 17:59 Dietary Evaluation Review Comments: Joining an alcohlic rehabilation program is recommended. Expected Outcomes/Goals: recovered alcohlic, improved GI function and general health Date of Service: Jun 11, 2024 Billing Provider: JUSTIN CAI MD Common Visit Codes: [id number] INP/OBS CARE(MOD) KOLBY MENDES RESIDENT Jun 11, 2024 14:48 JUSTIN CAI MD Jun 11, 2024 21:13
--- NOTE | 2024-06-11 16:24 | DVH ---
Procedure: XY SMALL BOWEL SERIES-W GASTROGRA Reason for study/Clinical History: ileus Comparison Study: None available at time of dictation. Technique: Single contrast small bowel series performed. FINDINGS/IMPRESSION: Initial process description writer view of the abdomen and pelvis appears demonstrates no acute process. Contrast is identified within the colon by 2 hours. This represents a normal small bowel transit prema herrera
[2024-06-11] MEDS: IPRATROPIUM BROM 0.5 MG/2.5ML INH SOL NEB PRN (20:30)
[2024-06-11] MEDS: ALBUTEROL SULF 2.5 MG/0.5ML(0.5%) NEB SOLN NEB PRN (20:30)
[2024-06-12 05:00] VITALS: BP 121/81; PULSE 73; RESP 16; TEMP 97.7; O2SAT 97
[2024-06-12 06:01] LABS: Basophils # (auto) 0 10 ^3/uL (0-0.2); Basophils % (auto) 0.6 % (0.0-2.0); Eosinophils # (auto) 0.1 10 ^3/uL (0-0.8); Eosinophils % (auto) 1.9 % (0.0-7.0); Hematocrit 43.2 % (41.0-53.0); Hemoglobin 15.2 g/dL (13.5-17.5); Lymphocytes # (auto) 1.3 10 ^3/uL (0.4-5.4); Lymphocytes % (auto) 25.2 % (10.0-50.0); Mean Corpuscular Hemoglobin 32.6 pg (28.0-32.0); Mean Corpuscular Hgb Conc. 35.2 g/dL (32.0-36.0); Mean Corpuscular Volume 92.7 fL (80.0-100.0); Monocytes # (auto) 0.7 10 ^3/uL (0-1.3); Monocytes % (auto) 12.9 % (0.0-12.0); Neutrophils # (auto) 3.1 10 ^3/uL (1.6-8.6); Neutrophils % (auto) 59.4 % (37.0-80.0); Nucleated Red Blood Cells % 0.2 %; Platelet Count (auto) 310 10^3/uL (140-450); Red Blood Cells 4.66 10^6/uL (4.5-5.90); White Blood Cell 5.1 10^3/uL (4.4-10.8)
[2024-06-12 06:10] VITALS: O2SAT 94
[2024-06-12 06:12] LABS: Anion Gap 5 (5-15); Carbon Dioxide 26 mmol/L (20-31); Chloride 106 mmol/L (98-107); Potassium 3.8 mmol/L (3.5-5.1); Sodium 137 mmol/L (136-145)
[2024-06-12 06:13] LABS: Calcium 9.6 mg/dL (8.7-10.4)
[2024-06-12 06:18] LABS: Glucose 101 mg/dL (74-106)
[2024-06-12 06:26] LABS: Blood Urea Nitrogen 6 mg/dL (9-23)
[2024-06-12 07:16] VITALS: PULSE 73; RESP 20; O2SAT 94
[2024-06-12 07:22] VITALS: PULSE 85; RESP 20; O2SAT 100
[2024-06-12 09:00] VITALS: BP 127/87; PULSE 82; RESP 20; TEMP 97.6; O2SAT 93
[2024-06-12] MEDS ORDERED: AUG875T PO (09:35)
[2024-06-12 11:58] VITALS: TEMP 36.4
--- NOTE | 2024-06-12 18:07 | DVHDSRES ---
Discharge Summary Date of Admission Resident Creating Document: KOLBY MENDES RESIDENT Jun 09, 2024 at 22:11 Date of Discharge: Jun 12, 2024 Admitting Diagnosis Intractable abdominal pain likely due to constipation Wounds: No wound was present Labs/Diagnostic Data: Laboratory Results Test 06/12/24 04:54 06/10/24 18:50 06/10/24 07:30 06/10/24 04:29 White Blood Count 5.1 10^3/uL (4.4-10.8) Red Blood Count 4.66 10^6/uL (4.5-5.90) Hemoglobin 15.2 g/dL (13.5-17.5) Hematocrit 43.2 % (41.0-53.0) Mean Corpuscular Volume 92.7 fL (80.0-100.0) Mean Corpuscular Hemoglobin 32.6 pg (28.0-32.0) Mean Corpuscular Hemoglobin Concent 35.2 g/dL (32.0-36.0) Red Cell Distribution Width 13.0 % (11.8-14.3) Platelet Count 310 10^3/uL (140-450) Mean Platelet Volume 7.4 fL (6.9-10.8) Neutrophils (%) (Auto) 59.4 % (37.0-80.0) Lymphocytes (%) (Auto) 25.2 % (10.0-50.0) Monocytes (%) (Auto) 12.9 % (0.0-12.0) Eosinophils (%) (Auto) 1.9 % (0.0-7.0) Basophils (%) (Auto) 0.6 % (0.0-2.0) Neutrophils # (Auto) 3.1 10 ^3/uL (1.6-8.6) Lymphocytes # (Auto) 1.3 10 ^3/uL (0.4-5.4) Monocytes # (Auto) 0.7 10 ^3/uL (0-1.3) Eosinophils # (Auto) 0.1 10 ^3/uL (0-0.8) Basophils # (Auto) 0 10 ^3/uL (0-0.2) Nucleated Red Blood Cells 0.2 % Sodium Level 137 mmol/L (136-145) Potassium Level 3.8 mmol/L (3.5-5.1) Chloride Level 106 mmol/L (98-107) Carbon Dioxide Level 26 mmol/L (20-31) Anion Gap 5 (5-15) Blood Urea Nitrogen 6 mg/dL (9-23) Creatinine 0.67 mg/dL (0.700-1.30) Glomerular Filtration Rate Calc 109 mL/min (>90) BUN/Creatinine Ratio 9.0 (10.0-20.0) Serum Glucose 101 mg/dL (74-106) Calcium Level 9.6 mg/dL (8.7-10.4) Blood Gas Specimen Type Arterial Blood Gas Sample Site Right radial Blood Gas Patient Temperature 37.0 Arterial Blood Date Drawn [id number] Arterial Blood pH 7.470 (7.350-7.450) Arterial Blood Partial Pressure CO2 29.9 mmHg (35.0-48.0) Arterial Blood Partial Pressure O2 60.0 mmHg (83.0-108.0) Arterial Blood HCO3 21.3 mmol/L (21.0-28.0) Arterial Blood Oxygen Saturation 90.3 % (94.0-98.0) Arterial Blood Base Excess -1.2 mmol/L (-2.0-3.0) Arterial Blood Oxyhemoglobin 88.7 % (94.0-98.0) Arterial Blood Carboxyhemoglobin 1.5 % (0.5-1.5) Arterial Blood Methemoglobin 0.3 % (0.0-1.5) Cipriano Test Modified Blood Gas Total Hemoglobin 14.40 g/dL (13.5-17.5) Blood Gas Modality Room air FiO2 % 21.0 Urine Color Yellow (Yellow) Urine Clarity Clear (Clear) Urine pH 5.5 (5.0-9.0) Urine Specific [place] 1.013 (1.001-1.035) Urine Protein Negative (Negative) Urine Ketones Negative (Negative) Urine Blood Negative /uL (Negative) Urine Nitrite Negative (Negative) Urine Bilirubin Negative (Negative) Urine Urobilinogen Normal mg/dL (Negative) Urine Leukocyte Esterase Negative /uL (Negative) Urine RBC 1 /hpf (0 - 3) Urine Microscopic WBC 1 /HPF (0-3) Urine Squamous Epithelial Cells None seen /hpf (<5) Urine Bacteria None seen /hpf (None Seen) Urine Hyaline Casts Few /lpf (0 - 2) Urine Glucose Normal mg/dL (Normal) Hemoglobin A1c 5.3 % A1C (<5.7) Test 06/10/24 03:03 06/09/24 23:15 Prothrombin Time 10.9 sec (9.3-11.8) Prothrombin Time INR 1.03 (0.9-1.15) Activated Partial Thromboplast Time 29.1 SEC (24.5-34.5) Serum Osmolality 279 mOsm/kg (278-298) Lactic Acid Level 0.8 mmol/L (0.4-2.0) Magnesium Level 2.0 mg/dL (1.6-2.6) Total Bilirubin 0.4 mg/dL (0.2-1.0) Aspartate Amino Transferase (AST) 13 U/L (13-40) Alanine Aminotransferase (ALT) 19 U/L (7-40) Alkaline Phosphatase 115 U/L (46-116) Total Protein 7.7 g/dL (5.7-8.2) Albumin 4.7 g/dL (3.2-4.8) Vitamin B12 Level 578 pg/mL (211-911) Vitamin D 25-Hydroxy 42.7 ng/mL (30.0-100) Thyroid Stimulating Hormone (TSH) 1.48 uIU/mL (0.55-4.78) Urine Opiates Screen Neg (NEGATIVE) Urine Fentanyl Screen Neg (NEGATIVE) Urine Barbiturates Screen Neg (NEGATIVE) Urine Phencyclidine Screen Neg (NEGATIVE) Urine Amphetamines Screen Neg (NEGATIVE) Urine Benzodiazepines Screen Neg (NEGATIVE) Urine Cocaine Screen Neg (NEGATIVE) Urine Cannabinoids Screen Pos (NEGATIVE) Other Laboratory Tests 06/12/24 04:54 Brief Hx & Hospital Course: This is a 59-year-old male with past medical history of COPD on 3 L home oxygen at nighttime, CHF with EF 45%, PAD, chronic back pain, Alcohol use disorder, nicotine dependence, bipolar disorder presented to the ED with a chief complaint of abdominal pain and constipation for 2 days prior to this admission. Patient was recently seen in this facility last month 05/02/2024 for leukocytosis with stool impaction and hypotension requiring Levophed. the patient's reports that he has not had a bowel movement for the last 5 days and also complaint of lower abdominal diffuse pain which was 7/10, associated with fever chills feeling of cold, nausea and vomiting. takes [place] 10 mg 3 times a day and last dose was 2 days back for chronic back pain and also takes Dulcolax and stool softener at home. and denies chest pain, shortness of breath, hematemesis, hematochezia, dysuria. Hospital course: Plain Xray KUB abdomen demonstrated nonobstructive bowel gas pattern and large stool burden. Constipation likely opioid induced and Posssible stercoral colitis secondary to constipation. Patient was treated with clear liquid diet, Fleet enema, MiraLax powder daily, Colace 100 mg b.i.d., lactulose 60 mL once and also Gastrografin small bowel series which revealed normal bowel transit time. Patient was also treated with IV ceftriaxone 1 g daily and IV metronidazole 500 mg t.i.d. for possible stercoral colitis likely due to constipation. Follow up plain x-ray abdomen showed nonobstructive bowel gas pattern. Discharge plan was discussed with the patient and all question answered. Patient is being discharge to home with Augmentin 875 mg b.i.d. for 5 days, lactulose 15 mL daily for 30 days and Linzess 290 mcg daily for 30 days and advised to continue home medication. Patient was also advised to follow up with PCP in 1 week. Physical examination: General Appearance: Alert, Oriented X3, Cooperative, No acute distress HEENT: Atraumatic, PERRLA, EOMI, Mucous membrane moist/pink Respiratory: Clear to auscultation, Normal air movement Cardiovascular: Regular rate, Normal S1, Normal S2, No murmurs, no chest wall tenderness Abdominal: Normal bowel sounds, Soft, No tenderness, No hepatospenomegaly, No masses Extremities: No clubbing, No cyanosis, No edema, Normal pulses, No tenderness/swelling Skin: No rashes, No breakdown, No significant lesion Neuro: Normal gait, Normal speech, Strength at 5/5 X4 ext, Normal tone, Sensation intact, Cranial nerves 3-12 NL, Reflexes 2+ Psych/Mental Status: Mental status NL, Mood NL Consults/Reason for consult Dr. Galdamez was consulted Operations or Procedures Examination: XY KUB ABDOMEN SINGLE VIEW History: constipation Comparison: XY KUB ABDOMEN SINGLE VIEW on DOS: 05/02/24, XY KUB ABDOMEN SINGLE VIEW on DOS: 04/29/24, XY KUB ABDOMEN SINGLE VIEW on DOS: 04/27/24 TECHNIQUE: Frontal views of the abdomen was obtained. FINDINGS: Bowel gas pattern is unremarkable. The lung bases are unremarkable. No acute osseous abnormality identified. IMPRESSION: Nonobstructive bowel gas pattern. Large stool burden. Procedure: XY SMALL BOWEL SERIES-W GASTROGRA Reason for study/Clinical History: ileus Comparison Study: None available at time of dictation. Technique: Single contrast small bowel series performed. FINDINGS/IMPRESSION: Initial materials development engineer view of the abdomen and pelvis appears demonstrates no acute process. Contrast is identified within the colon by 2 hours. This represents a normal small bowel transit time. Examination: XY KUB ABDOMEN SINGLE VIEW History: CONSTIPATION Comparison: XY KUB ABDOMEN SINGLE VIEW on DOS: 06/09/24, XY KUB ABDOMEN SINGLE VIEW on DOS: 05/02/24, XY KUB ABDOMEN SINGLE VIEW on DOS: 04/29/24, XY KUB ABDOMEN SINGLE VIEW on DOS: 04/27/24 TECHNIQUE: Frontal views of the abdomen was obtained. FINDINGS: Bowel gas pattern is unremarkable. The lung bases are unremarkable. No acute osseous abnormality identified. IMPRESSION: Nonobstructive bowel gas pattern. Condition at Discharge: Stable Final Diagnosis/Problems List # Intractable nausea and vomiting likely due to viral gastroenteritis # Constipation likely opioid induced # Posssible stercoral colitis secondary to constipation # Ruled out SBO # Peripheral arterial disease-anterior tibial-unable to revascularize-on medical management # Chronic back pain # Chronic COPD on home oxygen 3 L # Chronic systolic heart failure with mildly reduced ejection fraction 45-50% ( 03/15) # Bipolar disorder # Nicotine dependence # History of alcohol use disorder Discharge Disposition: Home Discharge Instruct/Medications Diet: Cardiac 2g Na,low cholest Activity: No Restrictions, As Tolerated Follow Up/Referral: Follow up with PCP in 1 week. Medications: As per EMR Discharge Statement: "Patient was advised to return to the ER or call 911 if any headaches, dizziness, shortness of breath, chest pain, abdominal pain, bleeding, fevers, or worsening of medical condition. Patient was counseled about treatment plan, medications, possible side effects, patientverbalized understanding. All questions were answered to the best of my ability. This discharge took greater then 30 minutes in planning, reviewing documentation, counseling the patient, and discussing with other team members." ASSESSMENT ASSESSMENT Assessment # Intractable nausea and vomiting likely due to viral gastroenteritis # Constipation likely opioid induced # Posssible stercoral colitis secondary to constipation # Ruled out SBO # Peripheral arterial disease-anterior tibial-unable to revascularize-on medical management # Chronic back pain # Chronic COPD on home oxygen 3 L # Chronic systolic heart failure with mildly reduced ejection fraction 45-50% ( 03/15) # Bipolar disorder # Nicotine dependence # History of alcohol use disorder Date of Service: Jun 12, 2024 Billing Provider: EVERARDO LÓPEZ DO Common Visit Codes: [id number]/OBS DISCH DAY >30min KOLBY MENDES RESIDENT Jun 12, 2024 18:07 EVERARDO LÓPEZ DO Jun 14, 2024 22:45
== END 2024-06-12 12:50 | disposition home or self-care (01) | DRG 389 ==
LOC: ER 14:42 → OVERFLOW 22:11 → CENTRAL 06-10 14:48
PROVIDERS: ADMIT Internal Medicine; ATTEND Internal Medicine
DX: K56.41 Fecal impaction (principal); I50.22 Chronic systolic (congestive) heart failure; K56.7 Ileus, unspecified; A08.4 Viral intestinal infection, unspecified; T40.2X5A Adverse effect of other opioids, initial encounter; F31.9 Bipolar disorder, unspecified; I73.9 Peripheral vascular disease, unspecified; J44.9 Chronic obstructive pulmonary disease, unspecified; G89.29 Other chronic pain; R73.9 Hyperglycemia, unspecified; F10.21 Alcohol dependence, in remission; K31.84 Gastroparesis; I25.10 Atherosclerotic heart disease of native coronary artery without angina pectoris; G47.33 Obstructive sleep apnea (adult) (pediatric); I11.0 Hypertensive heart disease with heart failure; F20.9 Schizophrenia, unspecified; D72.829 Elevated white blood cell count, unspecified; F41.9 Anxiety disorder, unspecified; Z79.899 Other long term (current) drug therapy; Z87.891 Personal history of nicotine dependence; Y92.89 Other specified places as the place of occurrence of the external cause; Y90.9 Presence of alcohol in blood, level not specified
CPT/HCPCS: 36415; 36600; 71045; 74018; 74250; 80048; 80053; 80307; 81001; 82306; 82607; 82805; 83036; 83605; 83735; 83930; 84443; 85025; 85610; 85730; 94640; G0378; J1885; J2470; J3490

== ENCOUNTER 2024-10-12 08:50 | Emergency (ER) | payer MEDICARE, MEDICAID ==
[~2024-10-12] VITALS: Ht 185.4 cm; Wt 84.0 kg
[~2024-10-12 08:50] MED LIST changes: +AUG875T PO; +LACT10SO3 PO; +LINA290C OR; -METR-344 PO
--- NOTE | 2024-10-12 09:04 | ED.PDOC ---
History of Present Illness HPI Comments 59-year-old male presents to the ER with prior medical history of anxiety, CHF, COPD, depression, hypertension, schizophrenia: Surgical history of tonsillectomy, intestinal obstruction and the chief complaint of ear pain. Patient reports on having blood to the right ear for the past two weeks and was seen by his PCP and was given amoxicillin and prednisone. Patient came in today due from having reoccurring symptoms. She has an appointment this Sunday with his primary care doctor who has plans to open it and drain it. He was worried because he finished his antibiotics. Denies chills, fever, N/V/D, SOB, CP. No other associated symptoms, modifiers, recent injuries or sick contacts present at this time. Chief Complaint: Earache Time Seen by MD: 09:00 Primary Care Provider: unknown Reviewed Notes: Nurses Notes, Medications, Allergies Allergies: Coded Allergies: NO KNOWN ALLERGIES (Unverified , 06/21/09) Home Meds Active Scripts Amoxicillin & Pot Clavulanate (AUGMENTIN TABLET) 875 Mg Tb, 875 MG PO BID for 5 Days, #10 TAB Prov:KOLBY MENDES RESIDENT 06/12/24 Lactulose (Lactulose) 10 Gm/15 Ml Erin, 10 GM PO DAILY for 30 Days, #450 ML Prov:KOLBY MENDES RESIDENT 06/11/24 Linaclotide Base (LINZESS) 290 Mcg Cap, 290 MCG OR DAILY for 30 Days, #30 CAP Prov:KOLBY MENDES RESIDENT 06/11/24 Reported Medications Potassium Chloride (Klor-Con M10) 10 Meq Tab, 1 TAB PO DAILY 12/25/22 Furosemide (Lasix) 20 Mg Tb, 1 TAB PO DAILY 12/25/22 Hydrocodone-Acetaminophen (Hydrocodone/Acetaminophen 10-325 mg) 1 Tab Tab, 1 TAB PO TID 12/25/22 Tramadol Hcl (Tramadol Hcl) 50 Mg Tab, 50 MG PO BID 12/25/22 Lorazepam (Ativan) 0.5 Mg Tab, 1 MG PO qhs 12/25/22 Montelukast Sodium (Singulair) 5 Mg Chw, 10 MG PO DAILY 12/25/22 Suvorexant (Belsomra) 20 Mg Tab, 20 MG PO DAILY 12/25/22 Sucralfate (CARAFATE) 1 Gm Tab, 2 GM PO BID 12/25/22 Ondansetron Odt 4MG Tab (ZOFRAN PO) 4 Mg Tb, 4 MG PO Q8HPRN PRN for NAUSEA / VOMITING ODT TAB-DISSOLVE IN MOUTH, THEN SWALLOW 12/25/22 Fluoxetine Hcl (Fluoxetine Hcl) 40 Mg Cap, 1 CAP PO DAILY 12/28/20 Disulfiram (DISULFIRAM) 250 Mg Tab, 1 TAB PO DAILY 12/28/20 Diphenoxylate W/ Atropine (Diphenoxylate/Atropine 2.5-0.025 mg) 1 Tab Tab, 1 TAB PO QID PRN for FOR DIARRHEA 12/28/20 Dexlansoprazole (Dexilant) 60 Mg Cap, 1 CAP PO BID 12/28/20 Albuterol Sulfate (Albuterol Sulfate Hfa) 108 Mcg/Act Aer, 2 PUFF PO Q4HPRN PRN for wheezing 12/28/20 Benazepril Hcl (Benazepril Hcl) 10 Mg Tab, 1 TAB PO DAILY 12/28/20 Kgptvzrqxtf-Pohqnccvdyjk-Axlwz (Trelegy Ellipta 100-62.5-25 Mcg/INH) 1 Aer Aer, 1 PUFF PO DAILY 12/28/20 Olanzapine (Zyprexa) 20 Mg Tab, 20 MG PO DAILY 12/06/20 Information Source: Patient Mode of Arrival: Ambulatory Severity: Moderate Timing: Weeks Duration: Since onset Prehospital treatment: None Past Medical History PAST MEDICAL HISTORY: Anxiety, CHF, COPD, Depression, HTN, Schizophrenia Surgical History: Tonsillectomy Surgical History (Other): Intestinal obstruction Family History Family History: Reviewed,noncontributory to illness, Unknown Social History Smoker: Other Alcohol: Unknown Drugs: Unknown Lives In: Home Constitutional: denies: chills, diaphoresis, fatigue, fever, malaise, sweats, weakness, others EENTM: reports: ear bleeding, ear pain, others (right ear pain); denies: blurred vision, double vision, ear discharge, ear drainage, ear ringing, eye pain, eye redness, hearing loss, mouth pain, mouth swelling, nasal discharge, nose bleeding, nose congestion, nose pain, photophobia, tearing, throat pain, throat swelling, voice changes Respiratory: denies: cough, hemoptysis, orthopnea, SOB at rest, shortness of breath, SOB with excertion, stridor, wheezing, others Cardiovascular: denies: chest pain, dizzy spells, diaphoresis, Dyspnea on exertion, edema, irregular heart beat, left arm pain, lightheadedness, palpitations, PND, syncope, others Gastrointestinal: denies: abdomen distended, abdominal pain, blood streaked bowels, constipated, diarrhea, dysphagia, difficulty swallowing, hematemesis, melena, nausea, poor appetite, poor fluid intake, rectal bleeding, rectal pain, vomiting, others Genitourinary: denies: burning, dysuria, flank pain, frequency, hematuria, incontinence, penile discharge, penile sore, pain, testicle pain, testicle swelling, urgency, others Neurological: denies: dizziness, fainting, headache, left sided numbness, left sided weakness, numbness, paresthesia, pre-existing deficit, right sided numbness, right sided weakness, seizure, speech problems, tingling, tremors, weakness, others Musculoskeletal: denies: back pain, gout, joint pain, joint swelling, muscle pain, muscle stiffness, neck pain, others Integumetry: denies: bruises, change in color, change in hair/nails, dryness, laceration, lesions, lumps, rash, wounds, others Allergic/Immunocompromised: denies: Difficulty Healing, Frequent Infections, Hives, Itching, others Hematologic/Lymphatic: denies: anemia, blood clots, easy bleeding, easy bruising, swollen glands, others Endocrine: denies: excessive hunger, excessive sweating, excessive thirst, excessive urination, flushing, intolerance to cold, intolerance to heat, unexplained weight gain, unexplained weight loss, others Psychiatric: denies: anxiety, bipolar disorder, depression, hopeless, panic disorder, schizophrenia, sleepless, suicidal, others All Other Systems: Reviewed and Negative Physical Exam General Appearance: No Apparent Distress, Normal HEENT: Normal ENT Inspection, Pharynx Normal, TMs Normal, Other (Right external ear with large palpable fluctuant area in the tragus, no warmth no drainage no pain) Neck: Full Range of Motion, Non-Tender, Normal, Normal Inspection Respiratory: Chest Non-Tender, Lungs Clear, No Accessory Muscle Use, No Respiratory Distress, Normal Breath Sounds Cardiovascular: No Edema, No JVD, No Murmur, No Gallop, Normal Peripheral Pulses, Regular Rate/Rhythm Breast Exam: Deferred Gastrointestinal: No Organomegaly, Non Tender, No Pulsatile Mass, Normal Bowel Sounds, Soft Genitalia: Deferred Pelvic: Deferred Rectal: Deferred Extremities: No calf tenderness, Normal capillary refill, Normal inspection, Normal range of motion, Non-tender, No pedal edema Musculoskeletal : Apperance: Normal Neurologic: Alert, radiology assistant II-XII nml as Tested, No Motor Deficits, Normal Affect, Normal Mood, No Sensory Deficits Cerebellar Function: Normal Reflexes: Normal Skin: Dry, Normal Color, Warm Lymphatic: No Adenopathy Was a procedure done? Was a procedure done?: No Differential Dx Considerations may include: Cellulitis right ear X-Ray, Labs, Meds, VS Vital Signs Date Time Temp Pulse Resp B/P (MAP) Pulse Ox O2 Delivery O2 Flow Rate FiO2 10/12/24 08:51 97.5 95 15 148/67 98 97.5 X-Ray, Labs, Meds, VS Comment Patient seen and examined by me. Patient does have a cauliflower ear. The patient has a follow up scheduled this Sunday with his primary care doctor to open and drain it. He has already finish the antibiotics as well as prednisone. Patient was reassured told to continue keep his appointment on Sunday with his doctor that this is all normal. No signs of infection there is no need for further antibiotics. Time of 1ST Reevaluation: 09:30 Reevaluation 1ST: Unchanged Time of 2ND Reevaluation: 09:15 Reevaluation 2ND: Unchanged Patient Education/Counseling: Diagnosis, Treatment, Prognosis Family Education/Counseling: No Family Present SEPSIS Sepsis Screen Date sepsis recognized/suspect: Oct 12, 2024 Time Sepsis recognized/suspect: 0853 Recent Procedure: No On Antibiotic Therapy: No Respiratory Rate >20: No Heart Rate >90: No Temp<36 C (96.8 F) or >38.3 C: No SBP <90 or MAP <65 mmHG: No New Acute Mental Status Change: No Is the patient on CPAP, BIPAP,: No Vital Signs Date Time Temp Pulse Resp B/P (MAP) Pulse Ox O2 Delivery O2 Flow Rate FiO2 10/12/24 08:51 97.5 95 15 148/67 98 97.5 Departure 1 Departure Time of Disposition: 09:15 Impression: Primary Impression: Cauliflower right ear Disposition: HOME / SELF CARE / HOMELESS Condition: Good Additional Instructions: Please continue with your follow-up with your surgeon on Sunday so they can do the procedure Pull or tug on your ear it is okay to apply hot packs if you need Discharged With: Self Critical Care Note Critical Care Time?: No Stability Stability form required: No I personally scribed for ER ([email or web address]) on 10/12/24 at 09:04. Electronically submitted by Saul Ulloa ([email or web address]). ER Oct 12, 2024 09:04 REJI TAVERAS [facility] Oct 12, 2024 09:16
[2024-10-12 09:21] VITALS: BP 142/72; PULSE 84; RESP 17; TEMP 97.7; O2SAT 98
== END 2024-10-12 09:23 | disposition home or self-care (01) ==
LOC: ER 08:50
DX: T16.1XXA Foreign body in right ear, initial encounter (principal); I11.0 Hypertensive heart disease with heart failure; I50.9 Heart failure, unspecified; J44.9 Chronic obstructive pulmonary disease, unspecified; F41.9 Anxiety disorder, unspecified; F20.9 Schizophrenia, unspecified; F32.A Depression, unspecified; F17.200 Nicotine dependence, unspecified, uncomplicated; Z79.899 Other long term (current) drug therapy; Z90.89 Acquired absence of other organs; W44.8XXA Other foreign body entering into or through a natural orifice, initial encounter; Y93.89 Activity, other specified; Y92.89 Other specified places as the place of occurrence of the external cause; Y99.8 Other external cause status

== ENCOUNTER 2024-11-16 14:53 | Emergency (ER) | payer MEDICARE, MEDICAID ==
[~2024-11-16] VITALS: Ht 188 cm; Wt 88.1 kg
[2024-11-16] MEDS ORDERED: IBU600T PO (17:00)
--- NOTE | 2024-11-16 17:00 | ED.PDOC ---
History of Present Illness HPI Comments 59-year-old male came to the ER stating that he is having left shoulder pain which started few weeks ago. Patient denies any trauma. He states that he might have tossed and turned in bed few weeks ago since then he has been having left shoulder discomfort. He is able to move his extremities without any prob ga. History of hypertension COPD. Denies any other symptoms. Chief Complaint: Upper Extremity Time Seen by MD: 14:56 Primary Care Provider: unknown Reviewed Notes: Nurses Notes, Medications, Allergies Allergies: Coded Allergies: NO KNOWN ALLERGIES (Unverified , 06/21/09) Home Meds Active Scripts Amoxicillin & Pot Clavulanate (AUGMENTIN TABLET) 875 Mg Tb, 875 MG PO BID for 5 Days, #10 TAB Prov:KOLBY MENDES RESIDENT 06/12/24 Lactulose (Lactulose) 10 Gm/15 Ml Erin, 10 GM PO DAILY for 30 Days, #450 ML [facility] 06/11/24 Linaclotide Base (LINZESS) 290 Mcg Cap, 290 MCG OR DAILY for 30 Days, #30 CAP Prov:MARKALANNAKOLBY RESIDENT 06/11/24 Reported Medications Potassium Chloride (Klor-Con M10) 10 Meq Tab, 1 TAB PO DAILY 12/25/22 Furosemide (Lasix) 20 Mg Tb, 1 TAB PO DAILY 12/25/22 Hydrocodone-Acetaminophen (Hydrocodone/Acetaminophen 10-325 mg) 1 Tab Tab, 1 TAB PO TID 12/25/22 Tramadol Hcl (Tramadol Hcl) 50 Mg Tab, 50 MG PO BID 12/25/22 Lorazepam (Ativan) 0.5 Mg Tab, 1 MG PO qhs 12/25/22 Montelukast Sodium (Singulair) 5 Mg Chw, 10 MG PO DAILY 12/25/22 Suvorexant (Belsomra) 20 Mg Tab, 20 MG PO DAILY 12/25/22 Sucralfate (CARAFATE) 1 Gm Tab, 2 GM PO BID 12/25/22 Ondansetron Odt 4MG Tab (ZOFRAN PO) 4 Mg Tb, 4 MG PO Q8HPRN PRN for NAUSEA / VOMITING ODT TAB-DISSOLVE IN MOUTH, THEN SWALLOW 12/25/22 Fluoxetine Hcl (Fluoxetine Hcl) 40 Mg Cap, 1 CAP PO DAILY 12/28/20 Disulfiram (DISULFIRAM) 250 Mg Tab, 1 TAB PO DAILY 12/28/20 Diphenoxylate W/ Atropine (Diphenoxylate/Atropine 2.5-0.025 mg) 1 Tab Tab, 1 TAB PO QID PRN for FOR DIARRHEA 12/28/20 Dexlansoprazole (Dexilant) 60 Mg Cap, 1 CAP PO BID 12/28/20 Albuterol Sulfate (Albuterol Sulfate Hfa) 108 Mcg/Act Aer, 2 PUFF PO Q4HPRN PRN for wheezing 12/28/20 Benazepril Hcl (Benazepril Hcl) 10 Mg Tab, 1 TAB PO DAILY 12/28/20 Ftxshpwvnti-Qchneimwnugo-Bkaoh (Trelegy Ellipta 100-62.5-25 Mcg/INH) 1 Aer Aer, 1 PUFF PO DAILY 12/28/20 Olanzapine (Zyprexa) 20 Mg Tab, 20 MG PO DAILY 12/06/20 Information Source: Patient Mode of Arrival: Ambulatory Severity: Mild Timing: Days Duration: Since onset Past Medical History PAST MEDICAL HISTORY: Anxiety, CHF, COPD, Depression, HTN, Schizophrenia Surgical History: Tonsillectomy Family History Family History: Reviewed,noncontributory to illness, Unknown Social History Smoker: Other Alcohol: Unknown Drugs: Unknown Lives In: Home Constitutional: denies: chills, diaphoresis, fatigue, fever, malaise, sweats, weakness, others EENTM: denies: blurred vision, double vision, ear bleeding, ear discharge, ear drainage, ear pain, ear ringing, eye pain, eye redness, hearing loss, mouth pain, mouth swelling, nasal discharge, nose bleeding, nose congestion, nose pain, photophobia, tearing, throat pain, throat swelling, voice changes, others Respiratory: denies: cough, hemoptysis, orthopnea, SOB at rest, shortness of breath, SOB with excertion, stridor, wheezing, others Cardiovascular: denies: chest pain, dizzy spells, diaphoresis, Dyspnea on exertion, edema, irregular heart beat, left arm pain, lightheadedness, palpitat ions, PND, syncope, others Gastrointestinal: denies: abdomen distended, abdominal pain, blood streaked bow els, constipated, diarrhea, dysphagia, difficulty swallowing, hematemesis, melena, nausea, poor appetite, poor fluid intake, rectal bleeding, rectal pain, vomiting, others Genitourinary: denies: burning, dysuria, flank pain, frequency, hematuria, incontinence, penile discharge, penile sore, pain, testicle pain, testicle swelling, urgency, others Neurological: denies: dizziness, fainting, headache, left sided numbness, left sided weakness, numbness, paresthesia, pre-existing deficit, right sided numbness, right sided weakness, seizure, speech problems, tingling, tremors, weakness, others Musculoskeletal: reports: joint pain (Left shoulder); denies: back pain, gout, joint swelling, muscle pain, muscle stiffness, neck pain, others Integumetry: denies: bruises, change in color, change in hair/nails, dryness, laceration, lesions, lumps, rash, wounds, others Allergic/Immunocompromised: denies: Difficulty Healing, Frequent Infections, Hives, Itching, others Hematologic/Lymphatic: denies: anemia, blood clots, easy bleeding, easy bruising, swollen glands, others Endocrine: denies: excessive hunger, excessive sweating, excessive thirst, excessive urination, flushing, intolerance to cold, intolerance to heat, unexplained weight gain, unexplained weight loss, others Psychiatric: denies: anxiety, bipolar disorder, depression, hopeless, panic disorder, schizophrenia, sleepless, suicidal, others Physical Exam General Appearance: Moderate Distress HEENT: Normal ENT Inspection, Pharynx Normal, TMs Normal Neck: Full Range of Motion, Non-Tender, Normal, Normal Inspection Respiratory: Chest Non-Tender, Lungs Clear, No Accessory Muscle Use, No Respiratory Distress, Normal Breath Sounds Cardiovascular: No Edema, No JVD, No Murmur, No Gallop, Normal Peripheral Pulses, Regular Rate/Rhythm Breast Exam: Deferred Gastrointestinal: No Organomegaly, Non Tender, No Pulsatile Mass, Normal Bowel Sounds, Soft Genitalia: Deferred Pelvic: Deferred Rectal: Deferred Extremities: No calf tenderness, Normal capillary refill, Normal inspection, Normal range of motion, Non-tender, No pedal edema Musculoskeletal : Apperance: Normal Neurologic: Alert, project asst II-XII nml as Tested, No Motor Deficits, Normal Affect, Normal Mood, No Sensory Deficits Cerebellar Function: Normal Reflexes: Normal Skin: Dry, Normal Color, Warm Peripheral Pulses: 3+ Radial (R), 3+ Radial (L) Lymphatic: No Adenopathy Was a procedure done? Was a procedure done?: No Differential Dx Considerations may include: Musculoskeletal pain Muscle strain X-Ray, Labs, Meds, VS Vital Signs Date Time Temp Pulse Resp B/P (MAP) Pulse Ox O2 Delivery O2 Flow Rate FiO2 11/16/24 15:02 87 11/16/24 14:56 97.2 92 24 166/94 97 97.2 Time of 1ST Reevaluation: 16:57 Reevaluation 1ST: Unchanged Patient Education/Counseling: Diagnosis, Treatment, Prognosis, Need For Follow Up Family Education/Counseling: No Family Present SEPSIS Sepsis Screen Date sepsis recognized/suspect: Nov 16, 2024 Time Sepsis recognized/suspect: 1455 Recent Procedure: No On Antibiotic Therapy: No Respiratory Rate >20: No Heart Rate >90: Yes Temp<36 C (96.8 F) or >38.3 C: No SBP <90 or MAP <65 mmHG: No New Acute Mental Status Change: No Is the patient on CPAP, BIPAP,: No Physician Orders Electrocardigram (11/16/24 15:04) L Shoulder 2+ View Xray (11/16/24 16:34) Vital Signs Date Time Temp Pulse Resp B/P (MAP) Pulse Ox O2 Delivery O2 Flow Rate FiO2 11/16/24 15:02 87 11/16/24 14:56 97.2 92 24 166/94 97 97.2 Departure 1 Departure Time of Disposition: 16:58 Impression: Primary Impression: Muscle strain Disposition: 01 HOME / SELF CARE / HOMELESS Condition: Good e-Prescriptions Ibuprofen Micronized (MOTRIN TABLET) 600 Mg Tb 600 MG PO TID PRN for 3 Days, #9 TAB *Black box warning-NSAIDS can increase risk of MS & hypertension, GI irritation, ulceration, bleed, perferation. Do not use post cardiac surgery. Use short duration/lowest effective dose. Prov: KENNY YANG MD 11/16/24 Discharged With: Self Critical Care Note Critical Care Time?: No Stability Stability form required: No Heart Score Heart Score: Heart Score Response (Comments) Value History N/A 0 EKG N/A 0 Age N/A 0 Risk Factors N/A 0 Troponin N/A 0 Total 0 KENNY YANG MD Nov 16, 2024 17:00
[2024-11-16] MEDS: HYDROcodone-ACET 10/325MG TAB PO ONE (17:05)
[2024-11-16 17:08] VITALS: BP 117/81; TEMP 98
[2024-11-16 17:09] VITALS: PULSE 76; RESP 19; O2SAT 97
--- NOTE | 2024-11-16 18:22 | DVH ---
CLINICAL INDICATION: Left shoulder pain TECHNIQUE: XY L SHOULDER 2+ VIEW XRAY Comparison: None FINDINGS/IMPRESSION: : There is no evidence of acute fracture or dislocation. Soft tissues are unremarkable. Mild degenerative change of the left shoulder with mild osteophyte formation of the glenohumeral join t and mild joint space narrowing of the left acromioclavicular joint. Plaque projects over the aortic arch. Multilevel thoracic spondylosis. The visualized portions of the lungs are clear.
--- NOTE | 2024-11-18 09:56 | ECG ---
[facility] Test Date: 2024-11-16 Test Time: 15:02:08 Pat Name: VITA CAST Department: Room: Gender: M Rehabilitation Attendant: JEREMIAH : 1965 Requested By: KENNY YANG Order Number: [id number] Reading MD: Measurements Intervals [place] Rate: 87 P: 69 CT: 134 QRS: 87 QRSD: 99 T: 37 QT: 351 QTc: 423 Interpretive Statements Sinus rhythm Please click the below link to view image of tracing.
== END 2024-11-16 18:46 | disposition home or self-care (01) ==
LOC: ER 14:53
DX: S46.912A Strain of unspecified muscle, fascia and tendon at shoulder and upper arm level, left arm, initial encounter (principal); I11.0 Hypertensive heart disease with heart failure; I50.9 Heart failure, unspecified; J44.9 Chronic obstructive pulmonary disease, unspecified; F41.9 Anxiety disorder, unspecified; Z79.899 Other long term (current) drug therapy; Z90.89 Acquired absence of other organs; X58.XXXA Exposure to other specified factors, initial encounter; Y93.89 Activity, other specified; Y92.89 Other specified places as the place of occurrence of the external cause; Y99.8 Other external cause status
CPT/HCPCS: 73030; 93005

== ENCOUNTER 2024-12-14 22:55 | Emergency (ER) | payer MEDICARE, MEDICAID ==
[~2024-12-14] VITALS: Ht 185.4 cm; Wt 77.3 kg
[~2024-12-14 22:55] MED LIST changes: +IBU600T PO
[2024-12-14 23:00] VITALS: BP 141/89; PULSE 92; RESP 18; TEMP 97.8; O2SAT 93
--- NOTE | 2024-12-14 23:30 | ED.PDOC ---
History of Present Illness HPI Comments 59-year-old male with a history of recurrent small-bowel obstruction presents to the emergency department with a few hours of increasing abdominal distention. He denies associated abdominal pain, nausea or vomiting. Patient had a bowel movement or proximally 2 hours ago, small amount. He is on narcotic pain medications. Takes stool softeners daily. No other complaints at this time. REVIEW OF SYSTEMS: General: No fever, no chills, or fatigue HEENT: No sore throat, no earache, no congestion, no neck pain. Cardiac: No chest pain. No palpitations. Lungs: No shortness of breath, no cough. GI: No nausea, no vomiting, no diarrhea, + constipation, no abdominal pain, abdominal distention : No dysuria, frequency, or urgency. No hematuria. Musculoskeletal: No joint pain , no joint swelling, no extremity edema. Skin: No rash, no itching. Neuro: No headache, no dizziness, no weakness PHYSICAL EXAM: General: Awake, alert and oriented. No acute distress. Skin: Skin in warm, dry and intact. Appropriate color for ethnicity. HEENT: The head is normocephalic and atraumatic. Conjunctivae are clear without exudates or hemorrhage. Sclera is non-icteric. EOM are intact. No signs of nystagmus. Eyelids are normal in appearance without swelling or lesions. Oral mucosa is pink and moist Neck: The neck is supple with normal range of motion. No JVD. Cardiac: Heart rate and rhythm are normal. No murmurs, gallops, or rubs are auscultated. Respiratory: No signs of respiratory distress. Abdominal: Abdomen is soft, non-tender with distention, guarding or rigidity. Diminished bowel sounds in 4 quadrants. Extremities: Upper and lower extremities are atraumatic in appearance without deformity or edema. Neurological: The patient is awake, alert and oriented to person, place, and time with normal speech. Speech is clear. There is no facial asymmetry. Psychiatric: Appropriate mood and affect. Good judgement and insight. Chief Complaint: Abdominal Pain Time Seen by MD: 23:00 Primary Care Provider: unknown Allergies: Coded Allergies: NO KNOWN ALLERGIES (Unverified , 06/21/09) Home Meds Active Scripts Ibuprofen Micronized (MOTRIN TABLET) 600 Mg Tb, 600 MG PO TID PRN for 3 Days, #9 TAB *Black box warning-NSAIDS can increase risk of CT & hypertension, GI irritation, ulceration, bleed, perferation. Do not use post cardiac surgery. Use short duration/lowest effective dose. Prov:KENNY YANG MD 11/16/24 Amoxicillin & Pot Clavulanate (AUGMENTIN TABLET) 875 Mg Tb, 875 MG PO BID for 5 Days, #10 TAB Prov:TA MENDESRA RESIDENT 06/12/24 Lactulose (Lactulose) 10 Gm/15 Ml Erin, 10 GM PO DAILY for 30 Days, #450 ML [facility] 06/11/24 Linaclotide Base (LINZESS) 290 Mcg Cap, 290 MCG OR DAILY for 30 Days, #30 CAP Prov[facility] 06/11/24 Reported Medications Potassium Chloride (Klor-Con M10) 10 Meq Tab, 1 TAB PO DAILY 12/25/22 Furosemide (Lasix) 20 Mg Tb, 1 TAB PO DAILY 12/25/22 Hydrocodone-Acetaminophen (Hydrocodone/Acetaminophen 10-325 mg) 1 Tab Tab, 1 TAB PO TID 12/25/22 Tramadol Hcl (Tramadol Hcl) 50 Mg Tab, 50 MG PO BID 12/25/22 Lorazepam (Ativan) 0.5 Mg Tab, 1 MG PO qhs 12/25/22 Montelukast Sodium (Singulair) 5 Mg Chw, 10 MG PO DAILY 12/25/22 Suvorexant (Belsomra) 20 Mg Tab, 20 MG PO DAILY 12/25/22 Sucralfate (CARAFATE) 1 Gm Tab, 2 GM PO BID 12/25/22 Ondansetron Odt 4MG Tab (ZOFRAN PO) 4 Mg Tb, 4 MG PO Q8HPRN PRN for NAUSEA / VOMITING ODT TAB-DISSOLVE IN MOUTH, THEN SWALLOW 12/25/22 Fluoxetine Hcl (Fluoxetine Hcl) 40 Mg Cap, 1 CAP PO DAILY 12/28/20 Disulfiram (DISULFIRAM) 250 Mg Tab, 1 TAB PO DAILY 12/28/20 Diphenoxylate W/ Atropine (Diphenoxylate/Atropine 2.5-0.025 mg) 1 Tab Tab, 1 TAB PO QID PRN for FOR DIARRHEA 12/28/20 Dexlansoprazole (Dexilant) 60 Mg Cap, 1 CAP PO BID 12/28/20 Albuterol Sulfate (Albuterol Sulfate Hfa) 108 Mcg/Act Aer, 2 PUFF PO Q4HPRN PRN for wheezing 12/28/20 Benazepril Hcl (Benazepril Hcl) 10 Mg Tab, 1 TAB PO DAILY 12/28/20 Bxnxpqwxghj-Kipwthuttygg-Lakxa (Trelegy Ellipta 100-62.5-25 Mcg/INH) 1 Aer Aer, 1 PUFF PO DAILY 12/28/20 Olanzapine (Zyprexa) 20 Mg Tab, 20 MG PO DAILY 12/06/20 Mode of Arrival: EMS Past Medical History PAST MEDICAL HISTORY: Anxiety, CHF, COPD, Depression, HTN, Schizophrenia Surgical History: Tonsillectomy Family History Family History: Reviewed,noncontributory to illness, Unknown Social History Smoker: Other Alcohol: Unknown Drugs: Unknown Lives In: Home Was a procedure done? Was a procedure done?: No EKG EKG : Comments Normal sinus rhythm. Rate 93. No STEMI. Differential Dx Considerations may include: Abdominal pain, constipation, small-bowel obstruction, fluid retention, other X-Ray, Labs, Meds, VS Vital Signs Date Time Temp Pulse Resp B/P (MAP) Pulse Ox O2 Delivery O2 Flow Rate FiO2 12/14/24 23:00 97.8 92 18 141/89 93 97.8 12/14/24 22:57 93 Time of 1ST Reevaluation: 23:29 Reevaluation 1ST: Unchanged Patient Education/Counseling: Need For Follow Up Family Education/Counseling: No Family Present SEPSIS Sepsis Screen Date sepsis recognized/suspect: Dec 14, 2024 Time Sepsis recognized/suspect: 2299 Recent Procedure: No On Antibiotic Therapy: No Respiratory Rate >20: No Heart Rate >90: Yes Temp<36 C (96.8 F) or >38.3 C: No SBP <90 or MAP <65 mmHG: No New Acute Mental Status Change: No Is the patient on CPAP, BIPAP,: No Physician Orders Ct Ab Pel Wo Con-No Oral Or Iv (12/14/24 23:05) Vital Signs Date Time Temp Pulse Resp B/P (MAP) Pulse Ox O2 Delivery O2 Flow Rate FiO2 12/14/24 23:00 97.8 92 18 141/89 93 97.8 12/14/24 22:57 93 Departure 1 Departure Time of Disposition: 01:10 Impression: Primary Impression: Constipation Disposition: HOME / SELF CARE / HOMELESS Condition: Stable Additional Instructions: ED DISCHARGE INSTRUCTIONS Instructions: Please read all instructions provided in this packet carefully. Although you have been discharged from the Emergency Department, this does not mean that you have a "clean bill of health". No definitive diagnosis for your symptoms has been made today. It is possible that you are in the process of developing a serious illness. This is why you must return to the ED without fail if any new or worsening symptoms (especially if your symptoms include unable to pass gas, vomiting, chest pain, trouble breathing, worsening abdominal pain, fever, headache, confusion, trouble seeing, or trouble walking) It is also very important that you see a primary care provider (PCP) within the next 1-3 days to follow up. If you are unable to get an appointment, return to the ED for re-evaluation. Abdominal Pain: Care Instructions Overview Abdominal pain has many possible causes. Some aren't serious and get better on their own in a few days. Others need more testing and treatment. If your pain continues or gets worse, you need to be rechecked and may need more tests to find out what is wrong. You may need surgery to correct the problem. Don't ignore new symptoms, such as fever, nausea and vomiting, urination problems, pain that gets worse, and dizziness. These may be signs of a more serious problem. If you are not getting better, you may need more tests or tr eatment. The doctor has checked you carefully, but problems can develop later. If you notice any problems or new symptoms, get medical treatment right away. Follow-up care is a gallo part of your treatment and safety. Be sure to make and go to all appointments, and call your doctor if you are having problems. It's also a good idea to know your test results and keep a list of the medicines you take. How can you care for yourself at home? Rest until you feel better. To prevent dehydration, drink plenty of fluids. Choose water and other clear liquids until you feel better. If you have kidney, heart, or liver disease and have to limit fluids, talk with your doctor before you increase the amount of fluids you drink. When you feel like eating, start with small amounts. Do not have alcohol, caffeine, or spicy, hot, or high-fat foods for a day or two. Avoid anti-inflammatory medicines such as aspirin, ibuprofen (Advil, Motrin), and naproxen (Aleve). These can cause stomach upset. Talk to your doctor if you take daily aspirin for another health problem. When should you call for help? Call 911 anytime you think you may need emergency care. For example, call if: You passed out (lost consciousness). You pass maroon or very bloody stools. You vomit blood or what looks like coffee grounds. You have severe belly pain. Call your doctor now or seek immediate medical care if: Your pain gets worse, especially if it becomes focused in one area of your belly. You have a new or higher fever. Your stools are black and look like tar, or they have streaks of blood. You have unexpected vaginal bleeding. You have symptoms of a urinary tract infection. These may include: Pain when you urinate. Urinating more often than usual. Blood in your urine. You are dizzy or lightheaded, or you feel like you may faint. Watch closely for changes in your health, and be sure to contact your doctor if: You are not getting better as expected. Credits for Abdominal Pain: Care Instructions Current as of: December 07, 2022 Author: [facility] Staff Clinical Review Board All [employer] education is reviewed by a team that includes physicians, nurses, advanced practitioners, registered dieticians, and other healthcare professionals. e-Prescriptions Polyethylene Glycol 3350 (Miralax) 17 Gm Pow 17 GM PO BID for 7 Days, #14 POW Prov: JENNIFER HART MD 12/15/24 Critical Care Note Critical Care Time?: No Stability Stability form required: No Heart Score Heart Score: Heart Score Response (Comments) Value History N/A 0 EKG N/A 0 Age N/A 0 Risk Factors N/A 0 Troponin N/A 0 Total 0 JENNIFER HART MD Dec 14, 2024 23:30
--- NOTE | 2024-12-14 23:54 | DVH ---
Exam: CT CT AB PEL WO CON-NO ORAL OR IV History: Rule out bowel obstruction Comparison Study: XY KUB ABDOMEN SINGLE VIEW on DOS: 06/11/24, XY KUB ABDOMEN SINGLE VIEW on DOS: 06/09, XY KUB ABDOMEN SINGLE VIEW on DOS: 05/02/24, CT CT AB PEL WITH ORAL CON ONLY on DOS: 05/01/24, XY KUB ABDOMEN SINGLE VIEW on DOS: 04/29/24 TECHNIQUE: Multidetector CT of the abdomen and pelvis was performed from lung bases to pubic symphysi s. Imaging was performed without IV contrast. Axial, coronal, and sagittal multiplanar reformats were obtained from the axial data set by the technologist. RADIATION DOSE: CTDI vol 14.0 mGy. DLP 745.7 mGy.cm Findings: Limited evaluation of the solid organs in the absence of IV contrast. Lungs: Emphysema. Liver: Unremarkable. Spleen: Unremarkable. Pancreas: Unremarkable. Gallbladder: Unremarkable. Adrenals: Unremarkable Kidneys: Unremarkable. Pelvic Viscera: Unremarkable. Vasculature: Atherosclerotic aortoiliac calcification. Retroperitoneum: Unremarkable. Bowel: The large bowel appears mildly distended. Moderate stool burden. Fluid-filled appearance of th e small bowel. Musculoskeletal: Chronic thoracolumbar compression deformities. Scoliosis. Soft tissues: Unremarkable Impression: 1. Distention of the large bowel with large stool burden. 2. Fluid-filled small bowel may reflect an enteritis in the appropriate clinical setting. 3. Incidental findings as detailed.
--- NOTE | 2024-12-15 00:29 | ECG ---
[facility] Test Date: 2024-12-14 Test Time: 22:57:41 Pat Name: VITA CAST Department: [facility] ED Patient ID: [id number] Room: Gender: Case Specialist: : 1965 Requested By: JENNIFER HART Order Number: [id number] Reading MD: Chun Brown Measurements Intervals [place] Rate: 93 P: 41 MO: 133 QRS: 70 QRSD: 98 T: 21 QT: 332 QTc: 413 Interpretive Statements Sinus rhythm Consider anterior infarct Electronically Signed On 12-15-2024 15:18:23 PDT by Chun Brown Please click the below link to view image of tracing.
[2024-12-15] MEDS ORDERED: POLY335015 PO (01:19)
== END 2024-12-15 01:41 | disposition left against medical advice (07) ==
LOC: ER 22:55 → EDSEX 22:55 → EDBD 22:55 → ER 12-15 01:41
DX: K59.00 Constipation, unspecified (principal); I11.0 Hypertensive heart disease with heart failure; I50.9 Heart failure, unspecified; J44.9 Chronic obstructive pulmonary disease, unspecified; F20.9 Schizophrenia, unspecified; F32.A Depression, unspecified; F41.9 Anxiety disorder, unspecified; Z90.89 Acquired absence of other organs; Z79.899 Other long term (current) drug therapy
CPT/HCPCS: 74176; 93005